=== PATIENT | male | born 1940 | race Caucasian/White ===

== ENCOUNTER 2020-03-12 10:06 | Observation (INO) ==
[2020-03-12] MEDS ORDERED: SODIUM CHLORIDE 0.9% 1000ML 1,000 ML IV ONE (10:48)
--- NOTE | 2020-03-12 10:52 | Emergency Department Note ---
History of Present Illness General Chief complaint: Shortness of Breath/Dyspnea Stated complaint: LOSS 14LBS IN 8 [id number] PAIN-SOB Time Seen by Provider: 03/12/20 10:21 Source: patient and family (Spouse who is at the bedside) Mode of arrival: ambulatory Limitations: no limitations History of Present Illness This patient comes in after feeling ill since March 02. He was seen by his primary doctor's office that he had a lump in his abdomen he followed up with the CAT scan done in the [place] [facility] as well as an ultrasound they are concerned he could have an abscess there he follow-up with the surgeon Dr. Ruiz who said there is no abscess. This does not bother the patient. He has been having weak and achiness and they did COVID test him on March 06 which which came back negative. They also the respiratory panel was negative. Since 04 March he has had a mild headache fevers and myalgias. He has had no fever today. His main complaint today is actually more shortness of breath he says he just does not feel right. He describes his headache is just more mild achiness he has no neck stiffness. He was been seen at [facility] ER and had labs and chest x-rays CAT scans and IV fluids for dehydration. Apparently he had a Lyme test that was negative as well.d His did bring a stack of old records which I reviewed. His most recent labs on 03-09-2020 shows white count was 8.74, BUN was 25 and creatinine is 1.38. LFTs were normal. Sed rate was mildly elevated at 22. Troponin was normal. He also had a CAT scan done of the abdomen pelvis on March 09 which showed no acute findings. There are small bilateral fat-containing inguinal hernias. He also apparently had a CTA of the chest which did not show any PEs. The report for this is not present but this is referenced on the ER note. Home Medications Home Medications Medication Instructions Recorded Confirmed Type amlodipine 5 mg PO QAM 03/12/20 03/12/20 History aspirin [Aspir-81] 81 mg PO QAM 03/12/20 03/12/20 History cholecalciferol (vitamin D3) 3,000 unit PO QAM 03/12/20 03/12/20 History [Vitamin D3] folic acid 0.8 mg PO QAM 03/12/20 03/12/20 History glipizide 5 mg PO QAM 03/12/20 03/12/20 History hydrochlorothiazide 12.5 mg PO QAM 03/12/20 03/12/20 History levothyroxine 100 mcg PO QAM 03/12/20 03/12/20 History losartan 25 mg PO QAM 03/12/20 03/12/20 History magnesium oxide 400 mg PO BID 03/12/20 03/12/20 History metformin 1,000 mg PO BID 03/12/20 03/12/20 History simvastatin 20 mg PO QAM 03/12/20 03/12/20 History sitagliptin [Januvia] 100 mg PO QAM 03/12/20 03/12/20 History Allergies Allergy/AdvReac Type Severity Reaction Status Date / Time adhesive AdvReac Unknown SORE RASH Verified 03/12/20 11:10 WITH TAPE Past Med/Surg History Medical History Prostate cancer Voiding dysfunction Family History Brother Prostate cancer Social History Preferred Language: Lithuanian marital status: Feels Safe at Home: Yes Smoking Status: Never smoker Hx Alcohol Use: Yes Review of Systems A total of 10 systems reviewed and were otherwise negative Denies dysuria or hematuria. No nausea vomiting diarrhea. Is diffusely weak b ut nonfocal. He has lost 14 pounds over the last 8 days Physical Exam Vital Signs Vital Signs - 24 hr 03/12/20 10:15 03/12/20 11:13 03/12/20 11:20 Temperature 36.5 C Temperature Source Oral Pulse Rate 82 82 Pulse Rate from SpO2 Sensor Pulse Rhythm Regular Respiratory Rate 18 18 Respiratory Effort / Characteristics Non-Labored Non-Labored Respiratory Depth Normal Normal Blood Pressure 146/82 H Blood Pressure Mean 103 Blood Pressure Position Sitting Pulse Oximetry 97 97 96 Oxygen Delivery Method Room Air Room Air Room Air Sepsis Recent Fever Within 48 Hours No Sepsis New/Unexplained Change in Mental Status No Sepsis Action Taken by Nursing No Action Required 03/12/20 11:23 03/12/20 11:30 03/12/20 11:45 Temperature Temperature Source Pulse Rate 86 83 95 H Pulse Rate from SpO2 Sensor 86 83 96 H Pulse Rhythm Respiratory Rate 26 H 12 32 H Respiratory Effort / Characteristics Respiratory Depth Blood Pressure 153/95 H 135/80 165/96 H Blood Pressure Mean 119 84 109 Blood Pressure Position Pulse Oximetry 96 96 96 Oxygen Delivery Method Sepsis Recent Fever Within 48 Hours Sepsis New/Unexplained Change in Mental Status Sepsis Action Taken by Nursing 03/12/20 12:15 03/12/20 12:30 03/12/20 12:45 Temperature Temperature Source Pulse Rate 93 H 86 85 Pulse Rate from SpO2 Sensor 85 Pulse Rhythm Respiratory Rate 12 22 20 Respiratory Effort / Characteristics Respiratory Depth Blood Pressure 178/93 H 148/85 H 149/84 H Blood Pressure Mean 131 106 96 Blood Pressure Position Pulse Oximetry 94 Oxygen Delivery Method Sepsis Recent Fever Within 48 Hours Sepsis New/Unexplained Change in Mental Status Sepsis Action Taken by Nursing 03/12/20 13:00 03/12/20 13:15 03/12/20 13:30 Temperature Temperature Source Pulse Rate 79 81 84 Pulse Rate from SpO2 Sensor 78 81 84 Pulse Rhythm Respiratory Rate 22 22 17 Respiratory Effort / Characteristics Respiratory Depth Blood Pressure 134/69 145/79 H 148/81 H Blood Pressure Mean 88 87 110 Blood Pressure Position Pulse Oximetry 93 93 93 Oxygen Delivery Method Room Air Room Air Sepsis Recent Fever Within 48 Hours Sepsis New/Unexplained Change in Mental Status Sepsis Action Taken by Nursing 03/12/20 13:45 03/12/20 14:00 03/12/20 14:15 Temperature Temperature Source Pulse Rate 84 83 86 Pulse Rate from SpO2 Sensor 84 84 87 Pulse Rhythm Respiratory Rate 22 13 25 H Respiratory Effort / Characteristics Respiratory Depth Blood Pressure 150/84 H 151/81 H 166/88 H Blood Pressure Mean 101 94 129 Blood Pressure Position Pulse Oximetry 93 95 95 Oxygen Delivery Method Room Air Room Air Sepsis Recent Fever Within 48 Hours Sepsis New/Unexplained Change in Mental Status Sepsis Action Taken by Nursing 03/12/20 14:30 Temperature Temperature Source Pulse Rate 86 Pulse Rate from SpO2 Sensor 86 Pulse Rhythm Respiratory Rate 26 H Respiratory Effort / Characteristics Respiratory Depth Blood Pressure 156/88 H Blood Pressure Mean 103 Blood Pressure Position Pulse Oximetry 94 Oxygen Delivery Method Sepsis Recent Fever Within 48 Hours Sepsis New/Unexplained Change in Mental Status Sepsis Action Taken by Nursing General: Well developed well nourished not ill-appearing nontoxic older male who appears younger than stated age and in no acute distress, breathing comfortably on room air. Normal speech HEENT: Normal cephalic atraumatic. Pupils are equal round and reactive to light. Extraocular movements are intact. Oropharynx is pink with moist mucous membranes. No swelling of the mouth lips or tongue. Neck: Supple with a midline trachea. No meningeal signs or stiffness, no JVD or bruits. No Stridor. Negative Kernig and Rozanski signs Chest: Clear to auscultation bilaterally. No wheezes or rhonchi. No increased work of breathing. Heart: Regular rate and rhythm without murmurs or gallops. Abdomen: Soft nontender, nondistended without rebound guarding or rigidity. Extremities: No cyanosis clubbing or edema. No calf tenderness or assymetry Spine/Back. Non tender to palpation. No CVA tenderness Skin: Good turgor without rashes. Neurologic exam: Cranial nerves two through 12 are intact. Motor and sensation are intact and symmetrical throughout. No tremor Course Administered Medications Discontinued Medications Sodium Chloride (Nss 1000ml) 1,000 mls @ 999 mls/hr IV .Q1H1M ONE Stop: 03/12/20 11:48 Last Infusion: 03/12/20 13:41 Dose: 0 mls/hr Documented by: [id number] Admin: 03/12/20 11:30 Dose: 999 mls/hr Documented by: [id number] Medical Decision Making Differential Diagnosis Dehydration, sepsis, COVID, electrolyte or metabolic abnormality, tickborne illness, central neurologic process, meningitis/encephalitis, cardiac disease, CHF, pneumonia Medical Records Attestation: I reviewed the patient's medical records. Home Medications Current Medication List: was personally reviewed by me Laboratory Data Attestation: I reviewed the patient's lab results. Result diagrams: 03/12/20 12:13 03/12/20 12:13 Lab Results 03/12/20 03/12/20 03/12/20 Range/Units 12:13 12:13 12:13 WBC 6.73 (4.8-10.8) K/uL RBC 4.91 (4.7-6.1) M/uL Hgb 14.9 (14.0-18.0) g/dL Hct 45.4 (42-52) % MCV 92.5 (80-100) fL MCH 30.3 (25-34) pg MCHC 32.8 (32-36) g/dL RDW Std Deviation 43.2 (36.4-46.3) fL RDW Coeff of Orly 12.8 (11.5-14.5) % Plt Count 234 (130-400) K/uL MPV 9.5 (7.4-10.4) fL Immature Gran % (Auto) 0.1 % Neut % (Auto) 59.1 % Lymph % (Auto) 26.9 % Webb % (Auto) 8.9 % Eos % (Auto) 4.3 % Baso % (Auto) 0.7 % Neut # (Auto) 3.97 (1.4-6.5) K/uL Lymph # (Auto) 1.81 (1.2-3.4) K/uL Webb # (Auto) 0.60 H (0.11-0.59) K/uL Eos # (Auto) 0.29 (0-0.5) K/uL Baso # (Auto) 0.05 (0-0.2) K/uL Immature Gran # (Auto) 0.01 (0.00-0.02) K/uL PT 10.7 (9.0-12.0) Seconds INR 1.0 (0.9-1.1) APTT 25.1 (21.0-31.0) Seconds PTT Ratio 0.9 Sodium 141 (136-145) mmol/L Potassium 3.9 (3.5-5.1) mmol/L Chloride 101 (98-107) mmol/L Carbon Dioxide 30 (21-32) mmol/L Anion Gap 10.0 (3-11) BUN 30 H (7-18) mg/dl Creatinine 1.28 (0.6-1.4) mg/dl Est Cr Clr Drug Dosing 46.8 ml/min Est GFR ( Amer) 61.3 Est GFR (Non-Af Amer) 52.9 BUN/Creatinine Ratio 23.4 H (10-20) Glucose 165 H (70-99) mg/dl Lactate (0.4-2.0) mmol/L Calcium 9.6 (8.5-10.1) mg/dl Magnesium 2.3 (1.8-2.4) mg/dl Total Bilirubin 0.5 (0.2-1) mg/dl AST 20 (15-37) U/L ALT 45 (12-78) U/L Alkaline Phosphatase 70 (45-117) U/L Troponin I < 0.015 (0-0.045) ng/ml Total Protein 7.7 (6.4-8.2) gm/dl Albumin 3.8 (3.4-5.0) gm/dl Globulin 3.9 (2.5-4.0) gm/dl Albumin/Globulin Ratio 1.0 (0.9-2) Procalcitonin (0-0.5) ng/ml Anaplasma Smear See Comment Lyme Disease IgG Ab (Negative) Lyme Disease IgM Ab (Negative) 03/12/20 03/12/20 Range/Units 12:13 12:14 WBC (4.8-10.8) K/uL RBC (4.7-6.1) M/uL Hgb (14.0-18.0) g/dL Hct (42-52) % MCV (80-100) fL MCH (25-34) pg MCHC (32-36) g/dL RDW Std Deviation (36.4-46.3) fL RDW Coeff of Orly (11.5-14.5) % Plt Count (130-400) K/uL MPV (7.4-10.4) fL Immature Gran % (Auto) % Neut % (Auto) % Lymph % (Auto) % Webb % (Auto) % Eos % (Auto) % Baso % (Auto) % Neut # (Auto) (1.4-6.5) K/uL Lymph # (Auto) (1.2-3.4) K/uL Webb # (Auto) (0.11-0.59) K/uL Eos # (Auto) (0-0.5) K/uL Baso # (Auto) (0-0.2) K/uL Immature Gran # (Auto) (0.00-0.02) K/uL PT (9.0-12.0) Seconds INR (0.9-1.1) APTT (21.0-31.0) Seconds PTT Ratio Sodium (136-145) mmol/L Potassium (3.5-5.1) mmol/L Chloride (98-107) mmol/L Carbon Dioxide (21-32) mmol/L Anion Gap (3-11) BUN (7-18) mg/dl Creatinine (0.6-1.4) mg/dl Est Cr Clr Drug Dosing ml/min Est GFR ( Amer) Est GFR (Non-Af Amer) BUN/Creatinine Ratio (10-20) Glucose (70-99) mg/dl Lactate 1.6 (0.4-2.0) mmol/L Calcium (8.5-10.1) mg/dl Magnesium (1.8-2.4) mg/dl Total Bilirubin (0.2-1) mg/dl AST (15-37) U/L ALT (12-78) U/L Alkaline Phosphatase (45-117) U/L Troponin I (0-0.045) ng/ml Total Protein (6.4-8.2) gm/dl Albumin (3.4-5.0) gm/dl Globulin (2.5-4.0) gm/dl Albumin/Globulin Ratio (0.9-2) Procalcitonin < 0.05 (0-0.5) ng/ml Anaplasma Smear Lyme Disease IgG Ab Negative (Negative) Lyme Disease IgM Ab Negative (Negative) Imaging Data Attestation: I personally reviewed and interpreted this imaging study as follows: Radiologist's Impression: XR chest 1V portable CLINICAL HISTORY: SEPSIS COMPARISON STUDY: January 2013 FINDINGS: The heart is at the upper limits of normal in size. There is elevation of the right hemidiaphragm. There is no failure. There is no focal pulmonary consolidation. There are no pleural effusions.[ IMPRESSION: Mild elevation of the right hemidiaphragm. No active disease in the chest. ECG Data Attestation: I personally reviewed and interpreted this ECG as follows: Indication: + SOB/dyspnea Rate (beats per minute): 82 Rhythm: + normal sinus ECG Intervals/blocks: + Normal QRS and + Normal QT; no Normal IN (ER is mildly prolonged at 220) ECG [place]: + Normal ECG ST segments: + Normal ST segments ECG Findings: + Q waves (Inferior); no PACs and no PVCs Comparison ECG Date: from (2013, the most recent EKG in the computer) Change: no significant change MDM Narrative This patient comes in as described above he has not felt well for about 2 weeks now he is had extensive work-up and did bring the labs which I reviewed. I did a full sepsis work-up and he was hydrated 1 L normal saline bolus also did a cardiac work-up. He is had mild headaches although looks well and has no meningeal signs or stiffness he has normal neurologic exam and mental status .I do not think is meningitis or encephalitis I did do a CAT scan of his head as they have not imaged his head yet he does have a history of prostate cancer. He was reassessed frequently. He has no white count or fever to suggest infection. Additionally, his lactic acid is normal which would also go against sepsis. Chest x-ray does not suggest congestive heart failure pneumonia or pneumothorax. EKG does not suggest acute coronary syndrome or arrhythmia. Additionally troponin is negative. CAT scan of the head was unremarkable. He has nothing suggest liver gallbladder or pancreas disease. He has no meningeal signs or anything to suggest meningitis or encephalitis and has a normal neurologic exam. His initial tickborne illness studies are negative although the anaplasmosis PCR is pending. Although he had a COVID test it is possible this was falsely negative. He was retested here and isolated. This may be more of a viral illness as well. With this being his third visit and having continued weakness and shortness of breath and weight loss, I do think he should be admitted/observed, consulted Dr. Kirby to see him in the ER. Continuous cardiac monitoring: An order was placed for continuous cardiac monitoring. The patient was noted to be in normal sinus rhythm with a rate of 90. Impression & Plan SOB (shortness of breath), Weakness, Recent weight loss, Myalgia Discharge Plan Visit Data Chief Complaint: Shortness of Breath/Dyspnea Stated Complaint: LOSS 14LBS IN 8 [id number] PAIN-SOB ED Provider: Telly Rollins Discharge Problem: SOB (shortness of breath), Weakness, Recent weight loss, Myalgia Forms Stand Alone Forms: [facility] Prescriptions Prescriptions: No Action glipizide 5 mg tablet extended release 24hr 5 mg PO QAM RF: 0 amlodipine 5 mg tablet 5 mg PO QAM RF: 0 aspirin [Aspir-81] 81 mg Tablet,Delayed Release (Dr/Ec) 81 mg PO QAM RF: 0 levothyroxine 100 mcg tablet 100 mcg PO QAM RF: 0 simvastatin 20 mg tablet 20 mg PO QAM RF: 0 metformin 1,000 mg tablet 1,000 mg PO BID RF: 0 losartan 25 mg tablet 25 mg PO QAM RF: 0 hydrochlorothiazide 12.5 mg capsule 12.5 mg PO QAM RF: 0 folic acid 800 mcg Tablet 0.8 mg PO QAM RF: 0 cholecalciferol (vitamin D3) [Vitamin D3] 25 mcg (1,000 unit) Tablet 3,000 unit PO QAM RF: 0 Januvia 100 mg tablet 100 mg PO QAM RF: 0 magnesium oxide 400 mg magnesium Tablet 400 mg PO BID RF: 0
--- NOTE | 2020-03-12 11:05 | XRay Report ---
XR chest 1V portable CLINICAL HISTORY: SEPSIS COMPARISON STUDY: January 2013 FINDINGS: The heart is at the upper limits of normal in size. There is elevation of the right hemidia phragm. There is no failure. There is no focal pulmonary consolidation. There are no pleural effusion s.[ IMPRESSION: Mild elevation of the right hemidiaphragm. No active disease in the chest. ACT 112: Negative or not required by law. Electronically signed by: Lalo Clark M.D. 03/12/2020 11:03 AM
--- NOTE | 2020-03-12 12:10 | CT Scan Report ---
CT head/brain wo con CLINICAL HISTORY: headache COMPARISON STUDY: No previous studies for comparison. TECHNIQUE: Axial CT of the brain is performed from the vertex to the skull base. IV contrast was not administered for this examination. A dose lowering technique was utilized adhering to the principles of ALARA. CT DOSE: 537.48 mGy.cm FINDINGS: No intra or extra-axial mass lesions are visualized. There is no CT evidence of acute cortical infarc tion. There is no evidence of midline shift. There is no acute hemorrhage. No calvarial fractures ar e visualized. There are patchy white matter hypodensities likely on a small vessel basis. There is no evidence of pathologic ventricular dilatation. There are bilateral maxillary sinus retention cyst. IMPRESSION: No acute intracranial findings ACT 112: Negative or not required by law. Electronically signed by: Lalo Clark M.D. 03/12/2020 12:09 PM
[2020-03-12 12:25] LABS: Basophils # (auto) 0.05 K/uL (0-0.2); Basophils % (auto) 0.7 %; Eosinophils # (auto) 0.29 K/uL (0-0.5); Eosinophils % (auto) 4.3 %; Hematocrit (blood only) 45.4 % (42-52); Hemoglobin 14.9 g/dL (14.0-18.0); Immature Granulocytes # (auto) 0.01 K/uL (0.00-0.02); Immature Granulocytes % (auto) 0.1 %; Lymphocytes # (auto) 1.81 K/uL (1.2-3.4); Lymphocytes % (auto) 26.9 %; Mean Corpuscular Hemoglobin 30.3 pg (25-34); Mean Corpuscular Hgb Conc 32.8 g/dL (32-36); Mean Corpuscular Volume 92.5 fL (80-100); Mean Platelet Volume 9.5 fL (7.4-10.4); Monocytes % (auto) 8.9 %; Neutrophils # (auto) 3.97 K/uL (1.4-6.5); Neutrophils % (auto) 59.1 %; Platelet Count 234 K/uL (130-400); RDW Coefficient of Variation 12.8 % (11.5-14.5); RDW Standard Deviation 43.2 fL (36.4-46.3); Red Blood Count 4.91 M/uL (4.7-6.1); White Blood Count 6.73 K/uL (4.8-10.8)
[2020-03-12 12:35] LABS: Partial Thromboplastin Ratio 0.9; Partial Thromboplastin Time 25.1 Seconds (21.0-31.0); Prothrombin Time 10.7 Seconds (9.0-12.0)
[2020-03-12 12:42] LABS: Alanine Aminotransferase 45 U/L (12-78); Albumin Level 3.8 gm/dl (3.4-5.0); Aspartate Aminotransferase 20 U/L (15-37); BUN Creatinine Ratio 23.4 (10-20); Blood Urea Nitrogen 30 mg/dl (7-18); Calcium 9.6 mg/dl (8.5-10.1); Carbon Dioxide 30 mmol/L (21-32); Chloride 101 mmol/L (98-107); Creatinine Clr Calc Pharmacy 46.8 ml/min; Est GFR (African American) 61.3; Est GFR (Non-African American) 52.9; Glucose 165 mg/dl (70-99); Magnesium 2.3 mg/dl (1.8-2.4); Potassium 3.9 mmol/L (3.5-5.1); Sodium 141 mmol/L (136-145)
[2020-03-12 12:47] LABS: Alkaline Phosphatase 70 U/L (45-117); Bilirubin,Total 0.5 mg/dl (0.2-1); Globulin 3.9 gm/dl (2.5-4.0); Total Protein 7.7 gm/dl (6.4-8.2); Troponin I < 0.015 ng/ml (0-0.045)
[2020-03-12 13:06] LABS: Procalcitonin < 0.05 ng/ml (0-0.5)
[2020-03-12 13:17] LABS: Lyme Ab IgG w/WB Rflx Negative (Negative); Lyme Ab IgM w/WB Rflx Negative (Negative)
[2020-03-12] MEDS ORDERED: NON-FORMULARY MEDICATION (Folic Acid 0.8 MG) PO SCH (14:45)
[2020-03-12] MEDS ORDERED: LEVOTHYROXINE SODIUM 100 MCG TABLET PO SCH (14:45)
[2020-03-12] MEDS ORDERED: NON-FORMULARY MEDICATION (Magnesium Oxide 400 MG) PO SCH (14:45)
[2020-03-12] MEDS ORDERED: CHOLECALCIFEROL 3000 UNIT PO SCH (14:45)
--- NOTE | 2020-03-12 15:09 | History & Physical Report ---
Date of Service March 12, 2020 Assessment & Plan (1) Dyspnea: Very mild, not hypoxic. Pulse ox 93-96% at rest on room air presently Chest x-ray clear. No other respiratory symptoms except very mild dry cough occasionally Awaiting repeat COVID test but COVID test was negative on 03/06 as well as a [employer] viral respiratory panel PCR test which was also negative on 03/06. Troponin here is negative and symptoms ongoing for some time. -Admit for observation for worsening of dyspnea or development of hypoxia -No need for further imaging of the chest at this time or echocardiogram as he has no signs of heart failure clinically -Repeat COVID-19 test here -Supplemental O2 as needed to keep pulse ox greater than 92% -Could be associated with tickborne illness such as anaplasmosis to have bronchitis or dyspnea-see below (2) Fever: With 6 days of fevers starting 03/04 and resolved on 03/10 along with intermittent mild headache and myalgias and arthralgias He works in the [employer] frequently and has a history of multiple tick bites in the past Had a negative Lyme titer at an outside hospital within the last week and again here. Anaplasmosis smear here does not show inclusion bodies consistent with anaplasmosis, however it could be too late in the course of illness to see these inclusion bodies at this point. And Anaplasma DNA PCR has been sent off, but again could be falsely negative. He does have an elevation of monocytes and a CBC which is consistent more with a viral illness, but could be with anaplasmosis as well. He does not have any thrombocytopenia or elevated LFTs. WBC count is normal. COVID test negative on 03/06 as above and repeating here today -Will empirically treat with doxycycline 100 mg IV every 12 hours along with IV fluid hydration and see if patient has improvement in his overall malaise and headache -Follow blood cultures which were drawn in the ER -Monitor for fevers -Tylenol as needed -Supportive care -Follow-up results of UA which has not been collected yet in the ER although he is not having any signs or symptoms of UTI (3) Headache: As above, treating empirically for tickborne illness. May also have been from fever which could be from a viral infection. Nonetheless, headache is pretty much resolved at this point and he does not have any altered mental state-I do not believe he needs a lumbar puncture at this time (4) Diabetes mellitus: With hyperglycemia here secondary to stress and acute infection and did not take his medications this morning -Sliding scale insulin with NovoLog as needed -Continue home Januvia but hold glipizide and metformin Check hemoglobin A1c in the morning (5) HTN (hypertension), benign: Blood pressures mildly elevated here as he did not take his medications this morning prior to coming to the ER -Give amlodipine, losartan first dose now, but hold HCTZ while giving IV fluids Monitor BPs (6) Prostate cancer: With a history of prostatectomy Follows with urology as an outpatient No acute issues at this time -Checking UA with urine culture as indicated as above (7) Vitamin D deficiency: Continue home vitamin D supplementation -Continue home folic acid as well (8) DVT prophylaxis: SQ Lovenox, SCDs Disposition-bring in for observation overnight for generalized malaise, mild dyspnea, and empiric treatment for tickborne illness as above along with IV fluid hydration Full code, but patient reports he would not want continued life support if he was in a state with a very poor prognosis for recovery. His longtime partner, Mariposa, who lives with him at 23 years is his HCPOA and she has paperwork stating such. History of Present Illness Chief Complaint: Shortness of breath, fever Primary Care Provider: Ming Gramajo This patient is a 79-year-old male with a history of DM 2, HTN, remote PMR, hyperlipidemia, and prostate cancer status post prostatectomy, who presents to the ER with 8 days of not feeling well. He started to complain of a headache intermittently and a fever on 03/04 that was never lower than 101.5 with being given antipyretics by his . He had myalgias and arthralgias initially as well and very low appetite. He denies any nausea/vomiting or diarrhea. He has lost 12 pounds in the last 8 days and has been very lethargic and laying in bed. His reports for the first 2 days with the fevers, he was slightly confused at times but that has since resolved. He denied any urological symptoms, no shortness of breath or cough or chest pain at that time. He is frequently working out in the [employer] and has pulled multiple ticks off of him over the years, but none recently that he can recall. He has not traveled outside of his local area and has been practicing very good social distancing and mostly staying at home. They did have family recently come to visit but no one who is actively sick and his is not actively sick as well. No known COVID contacts. He had a COVID test done in the parking lot of his PCPs office on 03/06. But when the fevers continued, he presented to the [place] ER for further testing on 03/08. There, he had imaging of the chest, abdomen/pelvis due to feeling a small lump which turned out to be a lipoma in the left lower quadrant (there had been question of whether he had an intra-abdominal abscess), and blood work and a urinalysis. He had COVID testing which had come back negative at that point. His blood work did show elevation in absolute monocytes as well as evidence of d ehydration with a mildly low sodium of 132 and creatinine slightly up at 1.4 as well as a high specific gravity of his urinalysis, but no evidence of infection on the urinalysis. He also had a negative Lyme disease test. The next day, he was seen by general surgeon as an outpatient for the lump in his abdomen and was told it was definitely a lipoma and was nothing to worry about and was certainly not causing his fevers. He then returned to the [facility] ER on 03/09 due to ongoing symptoms and again had a fairly unremarkable work-up and was sent home. His fevers resolved by 03/10 and his headache is improved. Today, he started to have a slight feeling of inability to take a deep breath, but no chest pain. He is no longer having a headache or fever, but because of the uneasy feeling and dyspnea, he came to [facility] ER for further evaluation. Here, his CBC was unremarkable except for mild elevation in absolute monocytes, his CMP was negative, and anaplasmosis smear was negative, a Lyme disease titer was negative, pro calcitonin was negative, troponin was negative, chest x-ray showed mild elevation right hemidiaphragm but otherwise clear, and a CT of the head was negative for acute disease. Urinalysis was not yet completed at the time of admission A repeat COVID test was sent off and pending at the time of admission. ECG showed first-degree AV block and evidence of a inferior infarct. His vital signs were all within normal limits except for mildly elevated blood pressure as he did not take his antihypertensives today. He will be admitted for observation with empiric treatment of IV doxycycline in case of tickborne infection, IV fluid hydration, and monitoring of blood cultures for growth for 24 hours. Allergies Allergy/AdvReac Type Severity Reaction Status Date / Time adhesive AdvReac Unknown SORE RASH Verified 03/12/20 11:10 WITH TAPE Home Medications Home Medications Medication Instructions Recorded Confirmed Type amlodipine 5 mg PO QAM 03/12/20 03/12/20 History aspirin [Aspir-81] 81 mg PO QAM 03/12/20 03/12/20 History cholecalciferol (vitamin D3) 3,000 unit PO QAM 03/12/20 03/12/20 History [Vitamin D3] folic acid 0.8 mg PO QAM 03/12/20 03/12/20 History glipizide 5 mg PO QAM 03/12/20 03/12/20 History hydrochlorothiazide 12.5 mg PO QAM 03/12/20 03/12/20 History levothyroxine 100 mcg PO QAM 03/12/20 03/12/20 History losartan 25 mg PO QAM 03/12/20 03/12/20 History magnesium oxide 400 mg PO BID 03/12/20 03/12/20 History metformin 1,000 mg PO BID 03/12/20 03/12/20 History simvastatin 20 mg PO QAM 03/12/20 03/12/20 History sitagliptin [Januvia] 100 mg PO QAM 03/12/20 03/12/20 History Past Med/Surg History Medical History Diabetes mellitus History of renal calculi HTN (hypertension), benign Prostate cancer Vitamin D deficiency Voiding dysfunction Surgical History History of prostatectomy History of total knee arthroplasty Bilateral Family History Brother Prostate cancer Social History Preferred Language: [place] marital status: Current Living Situation: Significant Other current occupational status: retired Feels Safe at Home: Yes Smoking Status: Never smoker Hx Alcohol Use: Yes Review of Systems Review of Systems: All systems reviewed & are unremarkable except as noted in HPI & below No sore throat or runny nose, no neck pain He did have mild intermittent headaches and photophobia which are now resolved Denies chest pain or cough that is productive. He has a very occasional slight dry cough. Dyspnea as per HPI Fevers have resolved for the last 2 days Denies nausea or vomiting but has very low appetite and has lost 12 pounds No diarrhea or constipation. Last bowel movement was this morning and was normal. No further myalgias or arthralgias-these have resolved No rashes that he knows of No dysuria or urinary frequency urgency Physical Exam Constitutional: WD/WN, vitals as above Eyes: PERRL, conjunctivae normal, anicteric sclerae ENMT: external ear and nose normal, oropharynx normal Neck: trachea midline, no thyromegaly normal visual inspection; no anterior neck swelling and no nuchal rigidity Thyroid: no thyromegaly, no thyroid mass, no thyroid nodules and thyroid nontender Respiratory: normal respiratory effort, lungs clear to auscultation Cardiovascular: RRR, no murmur, no edema Vessels: dorsalis pedis pulses present Extremities: no calf tenderness (Negative Homans sign bilaterally) and no edema Chest (Breasts): Chest: normal inspection of chest Gastrointestinal (Abdomen): normal bowel sounds, soft, nontender, no hepatosplenomegaly (Very small lump palpated superficially in the left lower quadrant that was nontender) Musculoskeletal: Extremities: extremities normal to inspection; no cyanosis and no clubbing Skin: no rashes, warm and dry Neurologic: moves all extremities and awake; no focal motor deficits Psychiatric: A+Ox3, euthymic affect Lymphatic: no lymphedema Results & Data Results & Data ([facility]) Vital Signs (Past 12 Hours) Vital Signs Temp Pulse Resp BP Pulse Ox 03/12/20 14:30 86 26 H 156/88 H 94 03/12/20 14:15 86 25 H 166/88 H 95 03/12/20 14:00 83 13 151/81 H 95 03/12/20 13:45 84 22 150/84 H 93 03/12/20 13:30 84 17 148/81 H 93 03/12/20 13:15 81 22 145/79 H 93 03/12/20 13:00 79 22 134/69 93 07/12/20 12:45 85 20 149/84 H 94 03/12/20 12:30 86 22 148/85 H 03/12/20 12:15 93 H 12 178/93 H 03/12/20 11:45 95 H 32 H 165/96 H 96 03/12/20 11:30 83 12 135/80 96 03/12/20 11:23 86 26 H 153/95 H 96 03/12/20 11:20 96 03/12/20 11:13 82 18 97 03/12/20 10:15 36.5 C 82 18 146/82 H 97 Laboratory Results 03/12/20 03/12/20 03/12/20 Range/Units 14:00 12:14 12:13 WBC (4.8-10.8) K/uL RBC (4.7-6.1) M/uL Hgb (14.0-18.0) g/dL Hct (42-52) % MCV (80-100) fL MCH (25-34) pg MCHC (32-36) g/dL RDW Std Deviation (36.4-46.3) fL RDW Coeff of Orly (11.5-14.5) % Plt Count (130-400) K/uL MPV (7.4-10.4) fL Immature Gran % (Auto) % Neut % (Auto) % Lymph % (Auto) % [place] % (Auto) % Eos % (Auto) % Baso % (Auto) % Neut # (Auto) (1.4-6.5) K/uL Lymph # (Auto) (1.2-3.4) K/uL [place] # (Auto) (0.11-0.59) K/uL Eos # (Auto) (0-0.5) K/uL Baso # (Auto) (0-0.2) K/uL Immature Gran # (Auto) (0.00-0.02) K/uL PT (9.0-12.0) Seconds INR (0.9-1.1) APTT (21.0-31.0) Seconds PTT Ratio Sodium (136-145) mmol/L Potassium (3.5-5.1) mmol/L Chloride (98-107) mmol/L Carbon Dioxide (21-32) mmol/L Anion Gap (3-11) BUN (7-18) mg/dl Creatinine (0.6-1.4) mg/dl Est Cr Clr Drug Dosing ml/min Est GFR ( Amer) Est GFR (Non-Af Amer) BUN/Creatinine Ratio (10-20) Glucose (70-99) mg/dl Lactate 1.6 (0.4-2.0) mmol/L Calcium (8.5-10.1) mg/dl Magnesium (1.8-2.4) mg/dl Total Bilirubin (0.2-1) mg/dl AST (15-37) U/L ALT (12-78) U/L Alkaline Phosphatase (45-117) U/L Troponin I (0-0.045) ng/ml Total Protein (6.4-8.2) gm/dl Albumin (3.4-5.0) gm/dl Globulin (2.5-4.0) gm/dl Albumin/Globulin Ratio (0.9-2) Procalcitonin < 0.05 (0-0.5) ng/ml Anaplasma Smear A. phagocytophilum DNA Lyme Disease IgG Ab Negative (Negative) Lyme Disease IgM Ab Negative (Negative) SARS-CoV-2 RNA (RT-PCR) Pending 03/12/20 03/12/20 03/12/20 Range/Units 12:13 12:13 12:13 WBC 6.73 (4.8-10.8) K/uL RBC 4.91 (4.7-6.1) M/uL Hgb 14.9 (14.0-18.0) g/dL Hct 45.4 (42-52) % MCV 92.5 (80-100) fL MCH 30.3 (25-34) pg MCHC 32.8 (32-36) g/dL RDW Std Deviation 43.2 (36.4-46.3) fL RDW Coeff of Orly 12.8 (11.5-14.5) % Plt Count 234 (130-400) K/uL MPV 9.5 (7.4-10.4) fL Immature Gran % (Auto) 0.1 % Neut % (Auto) 59.1 % Lymph % (Auto) 26.9 % [place] % (Auto) 8.9 % Eos % (Auto) 4.3 % Baso % (Auto) 0.7 % Neut # (Auto) 3.97 (1.4-6.5) K/uL Lymph # (Auto) 1.81 (1.2-3.4) K/uL [place] # (Auto) 0.60 H (0.11-0.59) K/uL Eos # (Auto) 0.29 (0-0.5) K/uL Baso # (Auto) 0.05 (0-0.2) K/uL Immature Gran # (Auto) 0.01 (0.00-0.02) K/uL PT 10.7 (9.0-12.0) Seconds INR 1.0 (0.9-1.1) APTT 25.1 (21.0-31.0) Seconds PTT Ratio 0.9 Sodium 141 (136-145) mmol/L Potassium 3.9 (3.5-5.1) mmol/L Chloride 101 (98-107) mmol/L Carbon Dioxide 30 (21-32) mmol/L Anion Gap 10.0 (3-11) BUN 30 H (7-18) mg/dl Creatinine 1.28 (0.6-1.4) mg/dl Est Cr Clr Drug Dosing 46.8 ml/min Est GFR ( Amer) 61.3 Est GFR (Non-Af Amer) 52.9 BUN/Creatinine Ratio 23.4 H (10-20) Glucose 165 H (70-99) mg/dl Lactate (0.4-2.0) mmol/L Calcium 9.6 (8.5-10.1) mg/dl Magnesium 2.3 (1.8-2.4) mg/dl Total Bilirubin 0.5 (0.2-1) mg/dl AST 20 (15-37) U/L ALT 45 (12-78) U/L Alkaline Phosphatase 70 (45-117) U/L Troponin I < 0.015 (0-0.045) ng/ml Total Protein 7.7 (6.4-8.2) gm/dl Albumin 3.8 (3.4-5.0) gm/dl Globulin 3.9 (2.5-4.0) gm/dl Albumin/Globulin Ratio 1.0 (0.9-2) Procalcitonin (0-0.5) ng/ml Anaplasma Smear See Comment A. phagocytophilum DNA Lyme Disease IgG Ab (Negative) Lyme Disease IgM Ab (Negative) SARS-CoV-2 RNA (RT-PCR) 03/12/20 Range/Units 12:12 WBC (4.8-10.8) K/uL RBC (4.7-6.1) M/uL Hgb (14.0-18.0) g/dL Hct (42-52) % MCV (80-100) fL MCH (25-34) pg MCHC (32-36) g/dL RDW Std Deviation (36.4-46.3) fL RDW Coeff of Orly (11.5-14.5) % Plt Count (130-400) K/uL MPV (7.4-10.4) fL Immature Gran % (Auto) % Neut % (Auto) % Lymph % (Auto) % [place] % (Auto) % Eos % (Auto) % Baso % (Auto) % Neut # (Auto) (1.4-6.5) K/uL Lymph # (Auto) (1.2-3.4) K/uL [place] # (Auto) (0.11-0.59) K/uL Eos # (Auto) (0-0.5) K/uL Baso # (Auto) (0-0.2) K/uL Immature Gran # (Auto) (0.00-0.02) K/uL PT (9.0-12.0) Seconds INR (0.9-1.1) APTT (21.0-31.0) Seconds PTT Ratio Sodium (136-145) mmol/L Potassium (3.5-5.1) mmol/L Chloride (98-107) mmol/L Carbon Dioxide (21-32) mmol/L Anion Gap (3-11) BUN (7-18) mg/dl Creatinine (0.6-1.4) mg/dl Est Cr Clr Drug Dosing ml/min Est GFR ( Amer) Est GFR (Non-Af Amer) BUN/Creatinine Ratio (10-20) Glucose (70-99) mg/dl Lactate (0.4-2.0) mmol/L Calcium (8.5-10.1) mg/dl Magnesium (1.8-2.4) mg/dl Total Bilirubin (0.2-1) mg/dl AST (15-37) U/L ALT (12-78) U/L Alkaline Phosphatase (45-117) U/L Troponin I (0-0.045) ng/ml Total Protein (6.4-8.2) gm/dl Albumin (3.4-5.0) gm/dl Globulin (2.5-4.0) gm/dl Albumin/Globulin Ratio (0.9-2) Procalcitonin (0-0.5) ng/ml Anaplasma Smear A. phagocytophilum DNA Pending Lyme Disease IgG Ab (Negative) Lyme Disease IgM Ab (Negative) SARS-CoV-2 RNA (RT-PCR) Diagnostic Findings CT head noncontrast-no acute intracranial findings Chest x-ray image personally reviewed by me and agree with the following: Mild elevation of right hemidiaphragm. No active disease in the chest. ECG Additional Comments: Sinus rhythm with first-degree AV block, inferior infarct age undetermined, possible anterior infarct age undetermined-compared to previous 03/28/2013, borderline criteria for anterior infarct are now present, inferior infarct is now present Code Status & VTE Plan Code Status Full code VTE Prophylaxis Plan VTE Prophylaxis will be ordered: Yes PG Care Time/CCT Total # of Minutes Spent Total Time Spent with Patient: Total time spent is greater than 50% in coordination of care (as documented) at patient's floor/unit and/or counseling patient: Coding Level of Care Code 01555 OBS Care - Level 3 Diagnoses Dyspnea R06.00 Fever R50.9 Headache R51 Diabetes mellitus E11.9 HTN (hypertension), benign I10 Prostate cancer C61 Vitamin D deficiency E55.9 DVT prophylaxis Z29.9
[2020-03-12] MEDS: DOXYCYCLINE HYCLATE 100 MG in DEXTROSE 5% 100 ML IV SCH (15:15)
[2020-03-12 15:42] LABS: Appearance Urine Clear (Clear); Bilirubin Urine Negative (Negative); Blood Urine Negative (Negative); Color Urine Yellow; Glucose Urine UA Negative (Negative); Ketones Urine 1+ (Negative); Leukocyte Esterase Urine Negative (Negative); Nitrite Urine Negative (Negative); Protein Urine Negative (Negative); Specific Gravity Urine 1.025 (1.000-1.030); Urobilinogen Urine Negative (Negative)
[2020-03-12] MEDS ORDERED: GLUCOSE 10 TABS/TUBE PO PRN (17:30)
[2020-03-12] MEDS ORDERED: GLUCOSE 40% GEL 15 GM TUBE PO PRN (17:30)
[2020-03-12] MEDS ORDERED: ONDANSETRON INJ 2 MG/ML 2 ML VIAL IV PRN (17:30)
[2020-03-12] MEDS ORDERED: ACETAMINOPHEN 325 MG TAB PO PRN (17:30)
[2020-03-12] MEDS ORDERED: GLUCAGON FOR INJ 1 MG VIAL SQ PRN (17:30)
[2020-03-12] MEDS ORDERED: DEXTROSE 50% 50 ML SYRINGE IV PRN (17:30)
[2020-03-12] MEDS ORDERED: ALUMINUM/MAGNESIUM SUSP 30 ML UDC PO PRN (17:30)
[2020-03-12] MEDS ORDERED: CARBOHYDRATES FOR HYPOGLYCEMIA PO PRN (17:30)
[2020-03-12] MEDS: SODIUM CHLORIDE 0.9% 1000ML 1,000 ML IV SCH (17:38)
[2020-03-12] MEDS ORDERED: ENOXAPARIN INJ 40 MG/0.4 ML SYR SQ SCH (18:00)
[2020-03-12] MEDS: SITAGLIPTIN PHOSPHATE 100 MG TAB PO SCH (18:23)
[2020-03-12] MEDS: LOSARTAN POTASSIUM 25 MG TAB PO SCH (18:23)
[2020-03-12] MEDS: FOLIC ACID 400 MCG TAB PO SCH (18:24)
[2020-03-12] MEDS: INSULIN ASPART 100 UNITS/ML 3 ML PEN SC SCH ×2 (18:58→21:59)
[2020-03-12] MEDS: AMLODIPINE BESYLATE 5 MG TAB PO SCH (20:50)
[2020-03-12] MEDS: ASPIRIN 81 MG ECTAB PO SCH (20:50)
[2020-03-12] MEDS: MAGNESIUM OXIDE 400 MG TAB PO SCH (20:51)
[2020-03-12] MEDS ORDERED: SIMVASTATIN 20 MG TAB PO SCH (21:00)
[2020-03-13] MEDS: SODIUM CHLORIDE 0.9% 1000ML 1,000 ML IV SCH (02:42)
[2020-03-13] MEDS: DOXYCYCLINE HYCLATE 100 MG in DEXTROSE 5% 100 ML IV SCH (02:42)
[2020-03-13] MEDS ORDERED: LEVOTHYROXINE SODIUM 100 MCG TABLET PO SCH (06:30)
[2020-03-13 07:47] LABS: Basophils # (auto) 0.03 K/uL (0-0.2); Basophils % (auto) 0.5 %; Eosinophils # (auto) 0.35 K/uL (0-0.5); Hematocrit (blood only) 41.9 % (42-52); Hemoglobin 14.1 g/dL (14.0-18.0); Immature Granulocytes # (auto) 0.01 K/uL (0.00-0.02); Immature Granulocytes % (auto) 0.2 %; Lymphocytes # (auto) 1.49 K/uL (1.2-3.4); Lymphocytes % (auto) 25.4 %; Mean Corpuscular Hgb Conc 33.7 g/dL (32-36); Mean Corpuscular Volume 92.1 fL (80-100); Mean Platelet Volume 9.3 fL (7.4-10.4); Monocytes # (auto) 0.43 K/uL (0.11-0.59); Monocytes % (auto) 7.3 %; Neutrophils # (auto) 3.55 K/uL (1.4-6.5); Neutrophils % (auto) 60.6 %; Platelet Count 217 K/uL (130-400); RDW Coefficient of Variation 12.7 % (11.5-14.5); RDW Standard Deviation 42.7 fL (36.4-46.3); Red Blood Count 4.55 M/uL (4.7-6.1); White Blood Count 5.86 K/uL (4.8-10.8)
[2020-03-13 08:20] LABS: BUN Creatinine Ratio 15.9 (10-20); Creatinine Clr Calc Pharmacy 60.3 ml/min; Est GFR (African American) 81.6; Est GFR (Non-African American) 70.4; Potassium 3.8 mmol/L (3.5-5.1)
[2020-03-13 08:21] LABS: Albumin Level 3.3 gm/dl (3.4-5.0); Bilirubin,Total 0.6 mg/dl (0.2-1); Calcium 8.7 mg/dl (8.5-10.1); Globulin 3.3 gm/dl (2.5-4.0); Magnesium 1.8 mg/dl (1.8-2.4); Total Protein 6.6 gm/dl (6.4-8.2)
[2020-03-13] MEDS: MAGNESIUM OXIDE 400 MG TAB PO SCH (08:24)
[2020-03-13] MEDS: FOLIC ACID 400 MCG TAB PO SCH (08:24)
[2020-03-13] MEDS: INSULIN ASPART 100 UNITS/ML 3 ML PEN SC SCH ×2 (08:53→12:01)
[2020-03-13] MEDS ORDERED: CHOLECALCIFEROL 1,000 UNITS 25 MCG TAB PO SCH (09:00)
[2020-03-13] MEDS: LOSARTAN POTASSIUM 25 MG TAB PO SCH (10:05)
[2020-03-13] MEDS: ASPIRIN 81 MG ECTAB PO SCH (10:05)
[2020-03-13] MEDS: SITAGLIPTIN PHOSPHATE 100 MG TAB PO SCH (10:05)
[2020-03-13] MEDS: AMLODIPINE BESYLATE 5 MG TAB PO SCH (10:05)
[2020-03-13 10:19] LABS: Estimated Average Glucose 200 mg/dl; Hemoglobin A1C 8.6 % (4.5-5.6)
--- NOTE | 2020-03-13 13:18 | Discharge Summary ---
Date of Service March 13, 2020 Admission HPI Per Admitting Provider This patient is a 79-year-old male with a history of DM 2, HTN, remote PMR, hyperlipidemia, and prostate cancer status post prostatectomy, who presents to the ER with 8 days of not feeling well. He started to complain of a headache intermittently and a fever on 03/04 that was never lower than 101.5 with being given antipyretics by his . He had myalgias and arthralgias initially as well and very low appetite. He denies any nausea/vomiting or diarrhea. He has lost 12 pounds in the last 8 days and has been very lethargic and laying in bed. His reports for the first 2 days with the fevers, he was slightly confused at times but that has since resolved. He denied any urological symptoms, no shortness of breath or cough or chest pain at that time. He is frequently working out in the [employer] and has pulled multiple ticks off of him over the years, but none recently that he can recall. He has not traveled outside of his local area and has been practicing very good social distancing and mostly staying at home. They did have family recently come to visit but no one who is actively sick and his is not actively sick as well. No known COVID contacts. He had a COVID test done in the parking lot of his PCPs office on 03/06. But when the fevers continued, he presented to the [facility] for further testing on 03/08. There, he had imaging of the chest, abdomen/pelvis due to feeling a small lump which turned out to be a lipoma in the left lower quadrant (there had been question of whether he had an intra-abdominal abscess), and blood work and a urinalysis. He had COVID testing which had come back negative at that point. His blood work did show elevation in absolute monocytes as well as evidence of dehydration with a mildly low sodium of 132 and creatinine slightly up at 1.4 as well as a high specific gravity of his urinalysis, but no evidence of infection on the urinalysis. He also had a negative Lyme disease test. The next day, he was seen by general surgeon as an outpatient for the lump in his abdomen and was told it was definitely a lipoma and was nothing to worry about and was certainly not causing his fevers. He then returned to the [facility] on 03/09 due to ongoing symptoms and again had a fairly unremarkable work-up and was sent home. His fevers resolved by 03/10 and his headache is improved. Today, he started to have a slight feeling of inability to take a deep breath, but no chest pain. He is no longer having a headache or fever, but because of the uneasy feeling and dyspnea, he came to [facility] for further evaluation. Here, his CBC was unremarkable except for mild elevation in absolute monocytes, his CMP was negative, and anaplasmosis smear was negative, a Lyme disease titer was negative, pro calcitonin was negative, troponin was negative, chest x-ray showed mild elevation right hemidiaphragm but otherwise clear, and a CT of the head was negative for acute disease. Urinalysis was not yet completed at the time of admission A repeat COVID test was sent off and pending at the time of admission. ECG showed first-degree AV block and evidence of a inferior infarct. His vital signs were all within normal limits except for mildly elevated blood pressure as he did not take his antihypertensives today. He will be admitted for observation with empiric treatment of IV doxycycline in case of tickborne infection, IV fluid hydration, and monitoring of blood cultures for growth for 24 hours. Principal Diagnosis Dyspnea, febrile illness, suspected tickborne illness, suspected COVID-19 Discharge Exam Constitutional WD/WN, vitals as above Eyes + anicteric sclerae Neck trachea midline, no thyromegaly normal visual inspection; no anterior neck swelling Respiratory normal respiratory effort, lungs clear to auscultation Cardiovascular RRR, no murmur, no edema Extremities: no calf tenderness (Negative Homans sign bilaterally) and no edema Chest (Breasts) Chest: normal inspection of chest Gastrointestinal (Abdomen) normal bowel sounds, soft, nontender, no hepatosplenomegaly (Very small lump palpated superficially in the left lower quadrant that was nontender) Musculoskeletal Extremities: extremities normal to inspection; no cyanosis and no clubbing Skin no rashes, warm and dry Neurologic moves all extremities and awake; no focal motor deficits Psychiatric A+Ox3, euthymic affect Lymphatic no lymphedema Discharge Data Allergies Allergy/AdvReac Type Severity Reaction Status Date / Time adhesive AdvReac Unknown SORE RASH Verified 03/12/20 11:10 WITH TAPE Consultations 03/12/20 13:43 ED Decision to Admit Stat Ordered Studies 03/12/20 10:47 CT head/brain wo con Stat Chest x-ray Hospital Course (1) Dyspnea: Very mild, not hypoxic. Pulse ox 93-96% at rest on room air initially and improved to 94-97% on room air by the day of discharge Chest x-ray clear. No other respiratory symptoms except very mild dry cough occasionally His dyspnea was completely resolved after admission and treatment with doxycycline and IV fluids as below Awaiting repeat COVID test but COVID test was negative on 03/06 as well as a [place] viral respiratory panel PCR test which was also negative on 03/06. Troponin here is negative and symptoms ongoing for some time. -No need for further imaging of the chest at this time or echocardiogram as he has no signs of heart failure clinically -Repeat COVID-19 test here pending at the time of discharge will need to be followed up after discharge -Could be associated with tickborne illness such as anaplasmosis to have bronchitis or dyspnea-see below (2) Fever: With 6 days of fevers starting 03/04 and resolved on 03/10 along with intermittent mild headache and myalgias and arthralgias He works in the [employer] frequently and has a history of multiple tick bites in the past Had a negative Lyme titer at an outside hospital within the last week and again here. Anaplasmosis smear here does not show inclusion bodies consistent with anaplasmosis, however it could be too late in the course of illness to see these inclusion bodies at this point. And Anaplasma DNA PCR has been sent off, but again could be falsely negative. He does have an elevation of monocytes and a CBC which is consistent more with a viral illness, but could be with anaplasmosis as well. Urinalysis is negative for signs of infection but does show evidence of dehydration He does not have any thrombocytopenia or elevated LFTs. WBC count is normal. COVID test negative on 03/06 as above and was repeated here-pending at the time of discharge He had no fevers during his hospital stay and was feeling significantly improved after receiving empiric doxycycline and IV fluid hydration He is stable for discharge to home -Will empirically treat with doxycycline 100 mg p.o. twice daily x4-week course -Follow blood cultures which were drawn in the ER-no growth to date -Monitor for fevers at home and recommended continued quarantine at home until COVID-19 test is resulted -Tylenol as needed (3) Headache: As above, treating empirically for tickborne illness and now completely resolved. May also have been from fever which could be from a viral infection. (4) Diabetes mellitus: With hyperglycemia here secondary to stress and acute infection and did not take his medications on the day of admission -Sliding scale insulin with NovoLog as needed was provided -Continue home Januvia, glipizide and metformin upon discharge Hemoglobin A1c here was elevated at 8.6% -Follow-up with PCP for improved control of diabetes (5) HTN (hypertension), benign: Blood pressures mildly elevated here as he did not take his medications this morning prior to coming to the ER -Blood pressures were much improved after restarting home medications -Continue amlodipine, losartan and HCTZ upon discharge Monitor BPs (6) Prostate cancer: With a history of prostatectomy Follows with urology as an outpatient No acute issues at this time -Urinalysis negative for infection (7) Vitamin D deficiency: Continue home vitamin D supplementation -Continue home folic acid as well (8) DVT prophylaxis: SQ Lovenox, SCDs were provided Disposition-admitted for observation for generalized malaise, mild dyspnea, and empiric treatment for tickborne illness as above along with IV fluid hydration- he was significantly improved and was stable for discharge by the next day Follow-up closely with PCP Full code, but patient reports he would not want continued life support if he was in a state with a very poor prognosis for recovery. His longtime partner, Mariposa, who lives with him at 23 years is his HCPOA and she has paperwork stating such. Total Time Total Time Spent Total Time Spent (In Minutes): 35 minutes Total Time Includes: Examination of the Patient, Discharge Planning and Medication Reconciliation Discharge Plan Discharge Items Patient Disposition: Home - Self-Care Reason For Visit: DYSPNEA, FEVER Discharge Diagnosis: Dyspnea, fever, Suspected Tick-Borne illness, Suspected COVID-19 Condition on Discharge: Good Activity: Resume your previous activity Lifting: Gradually increase as tolerated Bathing: No limitations Exercise/Sports: Gradually increase as tolerated Non-emergency contact: Primary Care Provider Call non-emergency contact if: you have any medication questions, your symptoms worsen, you have a fever and your temperature is above 101 Follow-up/Referrals: Lena Collier, [Physician] - (If you would like to change PCPs to the [facility] in [place], please call Dr. Collier's office to schedule an appointment. ) Ming Gramajo [Primary Care Provider] - Diet: Regular Addtl Attending Provider Instructions: Please finish out your doxycycline for a suspected tick-borne illness. The final test for Anaplasmosis is not resulted at the time of discharge, but even if it comes back nbegative, you should finish out the course of doxycycline for Anaplasmosis and for Lyme disease as you got so much better after taking it in the hospital. Your COVID-19 test was still pending at the time of discharge. We will notify you with the result when it is available. Home Isolation COVID-19 Instructions The following information about Home Isolation is from the CDC Website: https://www.cdc.gov/coronavirus/2019-ncov/hcp/hxlmfoda-blodbhd-dkrwxi.html Stay home except to get medical care People who are mildly ill with COVID-19 are able to isolate at home during their illness. You should restrict activities outside your home, except for getting medical care. Do not go to work, school, or public areas. Avoid using public transportation, ride-sharing, or taxis. Separate yourself from other people and animals in your home People: As much as possible, you should stay in a specific room and away from other people in your home. Also, you should use a separate bathroom, if available. Animals: You should restrict contact with pets and other animals while you are sick with COVID-19, just like you would around other people. Although there have not been reports of pets or other animals becoming sick with COVID-19, it is still recommended that people sick with COVID-19 limit contact with animals until more information is known about the virus. When possible, have another member of your household care for your animals while you are sick. If you are sick with COVID-19, avoid contact with your pet, including petting, snuggling, being kissed or licked, and sharing food. If you must care for your pet or be around animals while you are sick, wash your hands before and after you interact with pets and wear a face mask. Call ahead before visiting your doctor If you have a medical appointment, call the healthcare provider and tell them that you have or may have COVID-19. This will help the healthcare providers office take steps to keep other people from getting infected or exposed. Wear a face mask You should wear a face mask when you are around other people (e.g., sharing a room or vehicle) or pets and before you enter a healthcare providers office. If you are not able to wear a face mask (for example, because it causes trouble breathing), then people who live with you should not stay in the same room with you, or they should wear a face mask if they enter your room. Cover your coughs and sneezes Cover your mouth and nose with a tissue when you cough or sneeze. Throw used tissues in a lined trash can. Immediately wash your hands with soap and water for at least 20 seconds or, if soap and water are not available, clean your hands with an alcohol-based hand yard switch operator that contains at least 60% alcohol. Clean your hands often Wash your hands often with soap and water for at least 20 seconds, especially after blowing your nose, coughing, or sneezing; going to the bathroom; and before eating or preparing food. If soap and water are not readily available, use an alcohol-based hand yard switch operator with at least 60% alcohol, covering all surfaces of your hands and rubbing them together until they feel dry. Soap and water are the best option if hands are visibly dirty. Avoid touching your eyes, nose, and mouth with unwashed hands. Avoid sharing personal household items You should not share dishes, drinking glasses, cups, eating utensils, towels, or bedding with other people or pets in your home. After using these items, they should be washed thoroughly with soap and water. Clean all high-touch surfaces everyday High touch surfaces include counters, tabletops, doorknobs, bathroom fixtures, toilets, phones, keyboards, tablets, and bedside tables. Also, clean any surfaces that may have blood, stool, or body fluids on them. Use a household cleaning spray or wipe, according to the label instructions. Labels contain instructions for safe and effective use of the cleaning product including precautions you should take when applying the product, such as wearing gloves and making sure you have good ventilation during use of the product. Monitor your symptoms Seek prompt medical attention if your illness is worsening (e.g., difficulty breathing).Beforeseeking care, call your healthcare provider and tell them that you have, or are being evaluated for, COVID-19. Put on a face mask before you enter the facility. These steps will help the healthcare providers office to keep other people in the office or waiting room from getting infected or exposed. Ask your healthcare provider to call the local or state health department. Persons who are placed under active monitoring or facilitated self- monitoring should follow instructions provided by their local health department or occupational health professionals, as appropriate. When working with your local health department check their available hours. If you have a medical emergency and need to call 911, notify the dispatch personnel that you have, or are being evaluated for COVID-19. If possible, put on a face mask before emergency medical services arrive. Discontinuing home isolation Patients with confirmed COVID-19 should remain under home isolation precautions until the risk of secondary transmission to others is thought to be low. The decision to discontinue home isolation precautions should be made on a [id number] basis, in consultation with healthcare providers and [facility] and [facility] health departments. Pending Studies at Discharge: Yes (COVID-19, Anaplasmosis PCR) Stand-Alone Forms: My [facility] Medications and DC Order Prescriptions: New doxycycline hyclate 100 mg tablet 100 mg PO BID 28 Days Qty: 56 RF: 0 Continued glipizide 5 mg tablet extended release 24hr 5 mg PO QAM RF: 0 amlodipine 5 mg tablet 5 mg PO QAM RF: 0 aspirin [Aspir-81] 81 mg Tablet,Delayed Release (Dr/Ec) 81 mg PO QAM RF: 0 levothyroxine 100 mcg tablet 100 mcg PO QAM RF: 0 simvastatin 20 mg tablet 20 mg PO QAM RF: 0 metformin 1,000 mg tablet 1,000 mg PO BID RF: 0 losartan 25 mg tablet 25 mg PO QAM RF: 0 hydrochlorothiazide 12.5 mg capsule 12.5 mg PO QAM RF: 0 folic acid 800 mcg Tablet 0.8 mg PO QAM RF: 0 cholecalciferol (vitamin D3) [Vitamin D3] 25 mcg (1,000 unit) Tablet 3,000 unit PO QAM RF: 0 Januvia 100 mg tablet 100 mg PO QAM RF: 0 magnesium oxide 400 mg magnesium Tablet 400 mg PO BID RF: 0 Discharge Orders: Discharge Order (Routine); Ordered 03/13/20 Ordered By: Jennifer Alejandro/Other Patient Handouts: COVID-19 Prevention, COVID-19 Home Care, Diabetes: Activity Tips, Managing Diabetes: The A1C Test, Diabetes Learn Serve Portion Size, Diabetes Carbs Fats Protein, Doxycycline tablets or capsules Admission Data Admit Date/Time: 03/12/20 14:45 Attending Provider: Jennifer Kirby Admit Provider: Jennifer Kirby Primary Care Provider: Ming Gramajo Other Providers: Jennifer Kirby Other Interventions: Discharge Summary Assessment (RN) Last Done: 03/13/20 13:37 DC Date/Time DO NOT enter until pt leaves facility: 03/13/20 16:05 Coding Level of Care Code 97451 OBS Care - Discharge Diagnoses Dyspnea R06.00 Fever R50.9 Headache R51 Diabetes mellitus E11.9 HTN (hypertension), benign I10 Prostate cancer C61 Vitamin D deficiency E55.9 DVT prophylaxis Z29.9
--- NOTE | 2020-03-13 14:12 | Electrocardiogram Report ---
Test Reason : Blood Pressure : / mmHG Vent. Rate : 082 BPM Atrial Rate : 082 BPM P-R Int : 226 ms QRS Dur : 084 ms QT Int : 358 ms P-R-T Axes : 060 -05 002 degrees QTc Int : 418 ms Sinus rhythm with 1st degree A-V block possible Inferior infarct , age undetermined Poor R wave progression, consider anterior MS vs. lead placement vs. LVH Abnormal ECG When compared with ECG of 28-MAR-2013 14:51, DE interval has increased Borderline criteria for Anterior infarct are now Present Confirmed by Sid Ramirez ([id number]) on 03/13/2020 2:11:50 PM Referred By: REFERRED SELF Confirmed By:Jose Ramirez
== END 2020-03-13 16:05 | disposition home or self-care (01) ==
LOC: 2S 10:06 → ED 10:06 → 2S 15:38

== ENCOUNTER 2021-10-09 15:05 | Inpatient (IN) ==
--- NOTE | 2021-10-09 17:40 | XRay Report ---
XR chest 1V portable CLINICAL HISTORY: Weakness TECHNIQUE: Single frontal radiograph of the chest was obtained. Comparison: Comparison is made to chest one view 03/12/2020 FINDINGS: No lines and tubes are seen. The cardiomediastinal silhouette is normal. Lungs are underinflated but clear. No evidence of pleural effusion or pneumothorax. IMPRESSION: No acute chest disease. ACT 112: Negative or not required by law. Electronically signed by: Renny Del Castillo M.D. 10/09/2021 5:39 PM
--- NOTE | 2021-10-09 17:41 | XRay Report ---
XR humerus LT 2V CLINICAL HISTORY: Left arm pain, fall TECHNIQUE: 2 radiographic views of the left humerus were obtained. Comparison: None available at the time of this dictation. FINDINGS: There is no evidence for fracture, subluxation or dislocation. There is normal anatomic alignment of the bones. The visualized portion of the shoulder and elbow joints are unremarkable. There is normal bone mineralization. The soft tissues are unremarkable. IMPRESSION: No acute osseous injury ACT 112: Negative or not required by law. Electronically signed by: Renny Del Castillo M.D. 10/09/2021 5:40 PM
[2021-10-09 17:47] LABS: Hematocrit (blood only) 44.7 % (42-52); Hemoglobin 15.2 g/dL (14.0-18.0); Mean Corpuscular Volume 94.1 fL (80-100); Mean Platelet Volume 10.1 fL (7.4-10.4); Platelet Count 240 K/uL (130-400); RDW Coefficient of Variation 13.2 % (11.5-14.5); RDW Standard Deviation 45.8 fL (36.4-46.3); Red Blood Count 4.75 M/uL (4.7-6.1); White Blood Count 23.73 K/uL (4.8-10.8)
[2021-10-09 17:58] LABS: INR 1.1 (0.9-1.1); Partial Thromboplastin Ratio 1.1; Partial Thromboplastin Time 27.8 Seconds (21.0-31.0); Prothrombin Time 10.9 Seconds (9.0-12.0)
[2021-10-09 18:12] LABS: Alanine Aminotransferase 64 U/L (7-52); Albumin Globulin Ratio 1.2 (0.9-2); Albumin Level 4.1 gm/dl (3.4-5.0); Alkaline Phosphatase 87 U/L (34-104); Anion Gap 13 (3-11); Aspartate Aminotransferase 42 U/L (13-39); BUN Creatinine Ratio 21.3 (10-20); Blood Urea Nitrogen 35 mg/dl (6-23); Carbon Dioxide 26 mmol/L (21-32); Chloride 95 mmol/L (98-107); Est GFR (African American) 45.1 ml/min; Est GFR (Non-African American) 38.9 ml/min; Globulin 3.3 gm/dl (2.5-4.0); Glucose 283 mg/dl (70-99(Fasting)); Magnesium 1.5 mg/dl (1.7-2.4); Potassium 4.3 mmol/L (3.5-5.1); Sodium 134 mmol/L (136-145); Total Protein 7.4 gm/dl (6.0-8.3)
[2021-10-09 18:17] LABS: Basophils # (auto) 0.04 K/uL (0-0.2); Basophils % (auto) 0.2 %; Immature Granulocytes # (auto) 0.12 K/uL (0.00-0.02); Immature Granulocytes % (auto) 0.5 %; Lymphocytes # (auto) 1.09 K/uL (1.2-3.4); Lymphocytes % (auto) 4.6 %; Monocytes # (auto) 1.76 K/uL (0.11-0.59); Monocytes % (auto) 7.4 %; Neutrophils # (auto) 20.72 K/uL (1.4-6.5); Neutrophils % (auto) 87.3 %
[2021-10-09] MEDS ORDERED: SODIUM CHLORIDE 0.9% 1000ML 1,000 ML IV ONE (18:59)
[2021-10-09] MEDS ORDERED: cefTRIAXone SODIUM 1,000 MG/50 ML BAG IV STA (19:00)
[2021-10-09] MEDS ORDERED: ACETAMINOPHEN 325 MG TAB PO STA (19:02)
--- NOTE | 2021-10-09 19:37 | Emergency Department Note ---
Impression & Plan Sepsis, Renal colic, Hydronephrosis, Leukocytosis, Acute UTI ED Provider Note NAME: SHAR CHERRY AGE: 80 SEX: M : 1940 ARRIVES VIA: Walk-In INFORMANT: Patient ED PROVIDER(S): Cristi Mahan DO CHIEF COMPLAINT: Left lower back pain HPI: Patient is an 80-year-old male who presents to the ER for left lower back pain. Patient was seen by the PCP earlier today and given urine was diagnosed with a UTI just about 2 hours ago when they called him and he was sitting in the waiting room. He has been having hematuria for the past month. He denies any headache or change in vision. No chest pain or shortness of breath. No belly pain, nausea, vomiting, or diarrhea. He denies any dysuria, urgency, or frequency. No other exacerbating or remitting factors. Denies any steroid use. ROS: See above HPI for pertinent positives & negatives. A total of 10 systems reviewed and were otherwise negative. PAST MEDICAL HISTORY:See Below PAST SURGICAL HISTORY:See Below FAMILY HISTORY:See Below SOCIAL HISTORY:See Below HOME MEDICATIONS:See Below ALLERGIES:See Below VITALS:See Below PHYSICAL EXAMINATION: GENERAL: Sitting up in bed, alert, well appearing, well nourished, no distress, non-toxic EYE EXAM: normal conjunctiva. OROPHARYNX: no exudate, no erythema, lips, buccal mucosa, and tongue normal and mucous membranes are moist NECK: supple, no nuchal rigidity, no adenopathy, non-tender LUNGS: Clear to auscultation. Normal chest wall mechanics HEART: no murmurs, S1 normal and S2 normal ABDOMEN: abdomen soft, non-tender, normo-active bowel sounds, no masses, no rebound or guarding. BACK: Back is symmetrical on inspection and there is no deformity, no midline tenderness, no CVA tenderness. UPPER EXTREMITIES: upper extremities are grossly normal. LOWER EXTREMITIES: No pitting edema. NEURO EXAM: Normal sensorium, cranial nerves II-XII grossly intact, normal speech, no gross weakness of arms, no gross weakness of legs. MEDICAL DECISION MAKING: Patient is an 80-year-old male who presents ER for lower back pain as well as not feeling well. IV was established blood work was obtained. He was found to be tachycardic and borderline febrile. Labs show leukocytosis of 23,000. No significant anemia. Large left shift. INR unremarkable. BMP with creatinine 1.6. Mild hyponatremia. Lactate was elevated at 3. Troponin was checked was 0.10. He was given IV fluids and IV Rocephin. UA shows clear UTI. CT shows an obstructing left ureteral stone which was proximal. Patient is clearly septic secondary to this infected urinary stone. Discussed with Dr. Grayson from urology who evaluate the patient at bedside and took him to the OR. Patient was updated bedside. Discussed with hospitalist Trey for further evaluation. Triage Nursing notes reviewed. Limited review of prior medical records performed Vital Signs: reviewed and remarkable for tachycardic and borderline febrile Differential diagnosis: Differential diagnoses includes but is not limited to gastritis, peptic ulcer disease, GERD, gallbladder disease, pancreatitis, small bowel obstruction, acute coronary syndrome, pericarditis, ischemic bowel, irritable bowel disease, irritable bowel syndrome, appendicitis, diverticulitis, malignancy, hernia, urinary tract infection, torsion,, perforation, trauma, infectious. ER treatment provided: See below Diagnostics interpreted by me: ECG: Sinus cardia rate of 100 Normal axis No PVCs QTC 412 Cardiac Monitoring: An order was placed for continuous cardiac monitoring. The monitor shows a rate of 98 with sinus rhythm. Laboratory studies: As stated above and show below. Imaging studies: CT abdomen pelvis shows a kidney stone with hydronephrosis Consultation(s): As discussed above with the hospitalist and urologist Procedures: none Critical Care: I have personally spent 31 minutes of critical care time in the direct management of this patient. This includes bedside care, interpretation of diagnostic studies, and testing, discussion with consultants, patient, and family members, and other required patient management activities. This 31 minutes is in excess of all separately billable procedures. Past Med/Surg History Medical History BPH (benign prostatic hyperplasia) Diabetes mellitus GERD (gastroesophageal reflux disease) Hematuria History of paroxysmal supraventricular tachycardia History of renal calculi HTN (hypertension), benign Hyperlipidemia Hypothyroidism (acquired) Polymyalgia rheumatica Prostate cancer Vitamin D deficiency Voiding dysfunction Surgical History H/O prostate biopsy (~2000) History of prior ablation treatment (07/2013) History of prostatectomy (1999) History of total knee arthroplasty (~2012) Bilateral S/P cataract surgery 01/28/2018; 02/11/2018 S/P trigger finger release (~10/2016) Right hand Family History Brother Prostate cancer Denies family history of Ovarian cancer Myocardial infarction Breast cancer Colorectal cancer Social History Smoking Status: Never smoker Second Hand Exposure: No; Do You Dip or Chew Tobacco: No; Tobacco Cessation Education Requested by Patient: No Hx Alcohol Use: No Hx Substance Use: No Preferred Language: Kinyarwanda Communication Ability: Effective Visual Impairment: No Limitations Hearing Ability: Normal Twill Cutter Required: No Beliefs That Will Affect Care: None marital status: Current Living Situation: Significant Other current occupational status: retired Other Information That Helps Us Care for You: No Feels Safe at Home: Yes caffeine: Yes during the past year weight has: remained stable Dental Care, Regularly: Yes Physical Activity Frequency: Daily Physical Activity Frequency Comment: walking/ymca Seatbelt Use: always Sunscreen Use: Yes Assistive Devices: Glasses Allergies Allergies Allergy/AdvReac Type Severity Reaction Status Date / Time lisinopril Allergy Severe swollen Verified 10/09/21 20:14 tongue adhesive Allergy Intermediate SORE RASH Verified 10/09/21 20:14 WITH TAPE Home Meds Home Medications Medication Instructions Recorded Confirmed folic acid 800 mcg tablet 0.8 mg PO QAM 03/12/20 10/09/21 cholecalciferol (vitamin D3) 25 5,000 unit PO QAM tab 07/03/20 10/09/21 mcg (1,000 unit) tablet (Vitamin D3) ascorbic acid (vitamin C) 500 mg 500 mg PO DAILY 10/09/21 10/09/21 tablet (Vitamin C) aspirin 81 mg tablet,delayed 81 mg PO DAILY 10/09/21 10/09/21 release ketoconazole 2 % topical cream 1 applic TOPICAL BID PRN 10/09/21 10/09/21 simvastatin 20 mg tablet 20 mg PO QPM 10/09/21 10/09/21 Previous Rx's Medication Instructions Recorded magnesium oxide 400 mg PO BID #180 tab 07/19/20 betamethasone dipropionate 0.05 % 1 applic TOPICAL BID PRN #45 g 01/05/21 topical cream amlodipine 5 mg tablet 5 mg PO QAM #90 tab 03/27/21 glipizide 5 mg tablet, extended 5 mg PO QAM #90 tab 03/27/21 release 24 hr hydrochlorothiazide 12.5 mg capsule 12.5 mg PO QAM #90 cap 03/27/21 levothyroxine 112 mcg tablet 112 mcg PO DAILY #90 tab 03/27/21 losartan 25 mg tablet 25 mg PO QAM #90 tab 03/27/21 metformin 1,000 mg tablet 1,000 mg PO BID #180 tab 03/27/21 omeprazole 20 mg capsule,delayed 20 mg PO DAILY #90 cap 08/21/21 release Results & Data (ED) Vital Signs Vital Signs - 24 hr 10/09/21 15:25 10/09/21 19:25 Temperature 37.6 C H Temperature Source Temporal Artery Scan Pulse Rate 112 H Pulse Rate [Apical] 94 H Pulse Rhythm Regular Pulse Rhythm [Apical] Regular Pulse Strength Normal Pulse Strength [Apical] Normal Respiratory Rate 20 18 Respiratory Effort / Characteristics Non-Labored Spontaneous Non-Labored Respiratory Depth Normal Normal Respiratory Pattern Regular Regular Blood Pressure 144/77 H Blood Pressure [Left Arm] 106/66 Blood Pressure Mean 99 Blood Pressure Mean [Left Arm] 79 Blood Pressure Position Sitting Blood Pressure Position [Left Arm] Lying Pulse Oximetry 95 96 Oxygen Delivery Method Room Air Room Air Sepsis Recent Fever Within 48 Hours No Sepsis New/Unexplained Change in Mental Status N/A Sepsis Action Taken by Nursing No Action Required Laboratory Data Result diagrams: 10/09/21 17:26 10/09/21 17:26 Lab Results 10/09/21 10/09/21 10/09/21 Range/Units 17:26 17:26 17:26 WBC 23.73 H (4.8-10.8) K/uL RBC 4.75 (4.7-6.1) M/uL Hgb 15.2 (14.0-18.0) g/dL Hct 44.7 (42-52) % MCV 94.1 (80-100) fL MCH 32.0 (25-34) pg MCHC 34.0 (32-36) g/dL RDW Std Deviation 45.8 (36.4-46.3) fL RDW Coeff of Orly 13.2 (11.5-14.5) % Plt Count 240 (130-400) K/uL MPV 10.1 (7.4-10.4) fL Immature Gran % (Auto) 0.5 % Neut % (Auto) 87.3 % Lymph % (Auto) 4.6 % Franklin % (Auto) 7.4 % Eos % (Auto) 0.0 % Baso % (Auto) 0.2 % Neut # (Auto) 20.72 H (1.4-6.5) K/uL Lymph # (Auto) 1.09 L (1.2-3.4) K/uL Franklin # (Auto) 1.76 H (0.11-0.59) K/uL Eos # (Auto) 0.00 (0-0.5) K/uL Baso # (Auto) 0.04 (0-0.2) K/uL Immature Gran # (Auto) 0.12 H (0.00-0.02) K/uL PT 10.9 (9.0-12.0) Seconds INR 1.1 (0.9-1.1) APTT 27.8 (21.0-31.0) Seconds PTT Ratio 1.1 Sodium 134 L (136-145) mmol/L Potassium 4.3 (3.5-5.1) mmol/L Chloride 95 L (98-107) mmol/L Carbon Dioxide 26 (21-32) mmol/L Anion Gap 13 H (3-11) BUN 35 H (6-23) mg/dl Creatinine 1.64 H (0.6-1.4) mg/dl Est Cr Clr Drug Dosing Not Reportable Est GFR ( Amer) 45.1 ml/min Est GFR (Non-Af Amer) 38.9 ml/min BUN/Creatinine Ratio 21.3 H (10-20) Glucose 283 H (70-99(Fasting)) mg/dl Lactate (0.4-2.0) mmol/L Calcium 10.0 (8.5-10.1) mg/dl Magnesium 1.5 L (1.7-2.4) mg/dl Total Bilirubin 1.0 (0.2-1.0) mg/dl AST 42 H (13-39) U/L ALT 64 H (7-52) U/L Alkaline Phosphatase 87 (34-104) U/L Troponin I (0-0.04) ng/ml Total Protein 7.4 (6.0-8.3) gm/dl Albumin 4.1 (3.4-5.0) gm/dl Globulin 3.3 (2.5-4.0) gm/dl Albumin/Globulin Ratio 1.2 (0.9-2) Urine Color Urine Appearance (Clear) Urine pH (4.5-7.5) Ur Specific [place] (1.000-1.030) Urine Protein (Negative) Urine Glucose (UA) (Negative) Urine Ketones (Negative) Urine Blood (Negative) Urine Nitrite (Negative) Urine Bilirubin (Negative) Urine Urobilinogen (Negative) Ur Leukocyte Esterase (Negative) Urine RBC (0-4) /hpf Urine WBC (0-5) /hpf Ur Epithelial Cells (0-5) /lpf Urine Bacteria (Negative) SARS-CoV-2, RNA, NAAT (NEGATIVE) 10/09/21 10/09/21 10/09/21 Range/Units 19:26 19:49 20:27 WBC (4.8-10.8) K/uL RBC (4.7-6.1) M/uL Hgb (14.0-18.0) g/dL Hct (42-52) % MCV (80-100) fL MCH (25-34) pg MCHC (32-36) g/dL RDW Std Deviation (36.4-46.3) fL RDW Coeff of Orly (11.5-14.5) % Plt Count (130-400) K/uL MPV (7.4-10.4) fL Immature Gran % (Auto) % Neut % (Auto) % Lymph % (Auto) % Franklin % (Auto) % Eos % (Auto) % Baso % (Auto) % Neut # (Auto) (1.4-6.5) K/uL Lymph # (Auto) (1.2-3.4) K/uL Franklin # (Auto) (0.11-0.59) K/uL Eos # (Auto) (0-0.5) K/uL Baso # (Auto) (0-0.2) K/uL Immature Gran # (Auto) (0.00-0.02) K/uL PT (9.0-12.0) Seconds INR (0.9-1.1) APTT (21.0-31.0) Seconds PTT Ratio Sodium (136-145) mmol/L Potassium (3.5-5.1) mmol/L Chloride (98-107) mmol/L Carbon Dioxide (21-32) mmol/L Anion Gap (3-11) BUN (6-23) mg/dl Creatinine (0.6-1.4) mg/dl Est Cr Clr Drug Dosing Est GFR ( Amer) ml/min Est GFR (Non-Af Amer) ml/min BUN/Creatinine Ratio (10-20) Glucose (70-99(Fasting)) mg/dl Lactate 3.0 H* (0.4-2.0) mmol/L Calcium (8.5-10.1) mg/dl Magnesium (1.7-2.4) mg/dl Total Bilirubin (0.2-1.0) mg/dl AST (13-39) U/L ALT (7-52) U/L Alkaline Phosphatase (34-104) U/L Troponin I (0-0.04) ng/ml Total Protein (6.0-8.3) gm/dl Albumin (3.4-5.0) gm/dl Globulin (2.5-4.0) gm/dl Albumin/Globulin Ratio (0.9-2) Urine Color Yellow Urine Appearance Turbid A (Clear) Urine pH 5.0 (4.5-7.5) Ur Specific [place] >= 1.030 (1.000-1.030) Urine Protein 2+ H (Negative) Urine Glucose (UA) Negative (Negative) Urine Ketones Trace H (Negative) Urine Blood 3+ H (Negative) Urine Nitrite Negative (Negative) Urine Bilirubin 1+ H (Negative) Urine Urobilinogen Negative (Negative) Ur Leukocyte Esterase 3+ H (Negative) Urine RBC >30 H (0-4) /hpf Urine WBC >30 H (0-5) /hpf Ur Epithelial Cells 5-10 H (0-5) /lpf Urine Bacteria 1+ H (Negative) SARS-CoV-2, RNA, NAAT NEGATIVE (NEGATIVE) 10/09/21 Range/Units 20:27 WBC (4.8-10.8) K/uL RBC (4.7-6.1) M/uL Hgb (14.0-18.0) g/dL Hct (42-52) % MCV (80-100) fL MCH (25-34) pg MCHC (32-36) g/dL RDW Std Deviation (36.4-46.3) fL RDW Coeff of Orly (11.5-14.5) % Plt Count (130-400) K/uL MPV (7.4-10.4) fL Immature Gran % (Auto) % Neut % (Auto) % Lymph % (Auto) % Franklin % (Auto) % Eos % (Auto) % Baso % (Auto) % Neut # (Auto) (1.4-6.5) K/uL Lymph # (Auto) (1.2-3.4) K/uL Franklin # (Auto) (0.11-0.59) K/uL Eos # (Auto) (0-0.5) K/uL Baso # (Auto) (0-0.2) K/uL Immature Gran # (Auto) (0.00-0.02) K/uL PT (9.0-12.0) Seconds INR (0.9-1.1) APTT (21.0-31.0) Seconds PTT Ratio Sodium (136-145) mmol/L Potassium (3.5-5.1) mmol/L Chloride (98-107) mmol/L Carbon Dioxide (21-32) mmol/L Anion Gap (3-11) BUN (6-23) mg/dl Creatinine (0.6-1.4) mg/dl Est Cr Clr Drug Dosing Est GFR ( Amer) ml/min Est GFR (Non-Af Amer) ml/min BUN/Creatinine Ratio (10-20) Glucose (70-99(Fasting)) mg/dl Lactate (0.4-2.0) mmol/L Calcium (8.5-10.1) mg/dl Magnesium (1.7-2.4) mg/dl Total Bilirubin (0.2-1.0) mg/dl AST (13-39) U/L ALT (7-52) U/L Alkaline Phosphatase (34-104) U/L Troponin I 0.10 H* (0-0.04) ng/ml Total Protein (6.0-8.3) gm/dl Albumin (3.4-5.0) gm/dl Globulin (2.5-4.0) gm/dl Albumin/Globulin Ratio (0.9-2) Urine Color Urine Appearance (Clear) Urine pH (4.5-7.5) Ur Specific [place] (1.000-1.030) Urine Protein (Negative) Urine Glucose (UA) (Negative) Urine Ketones (Negative) Urine Blood (Negative) Urine Nitrite (Negative) Urine Bilirubin (Negative) Urine Urobilinogen (Negative) Ur Leukocyte Esterase (Negative) Urine RBC (0-4) /hpf Urine WBC (0-5) /hpf Ur Epithelial Cells (0-5) /lpf Urine Bacteria (Negative) SARS-CoV-2, RNA, NAAT (NEGATIVE) Administered Medications Diatrizoate Meglumine (Diatrizoate Meglumine 30% 100ml Vial) 6 ml INSTIL UD PRN PRN Reason: Radiology Use Stop: 10/13/21 21:42 Last Admin: 10/09/21 21:23 Dose: 6 ml Documented by: [id number] Discontinued Medications Acetaminophen (Acetaminophen 325 Mg Tab) 650 mg PO NOW STA Stop: 10/09/21 19:03 Last Admin: 10/09/21 20:01 Dose: 650 mg Documented by: [id number] Sodium Chloride (Nss 1000ml) 1,000 mls @ 999 mls/hr IV .Q1H1M ONE Stop: 10/09/21 19:59 Last Admin: 10/09/21 20:01 Dose: 999 mls/hr Documented by: [id number] Ceftriaxone Sodium (Rocephin) 1,000 mg in 50 mls @ 100 mls/hr IV NOW STA Stop: 10/09/21 19:29 Last Admin: 10/09/21 20:36 Dose: 100 mls/hr Documented by: [id number] Ioversol (Optiray 320 100ml) 96 ml IV ONCE ONE Stop: 10/09/21 19:39 Last Admin: 10/09/21 19:40 Dose: 96 ml Documented by: [id number] Imaging Data Radiologist's Impression: Humerus X-Ray 10/09/21 15:28 XR humerus LT 2V CLINICAL HISTORY: Left arm pain, fall TECHNIQUE: 2 radiographic views of the left humerus were obtained. Comparison: None available at the time of this dictation. FINDINGS: There is no evidence for fracture, subluxation or dislocation. There is normal anatomic alignment of the bones. The visualized portion of the shoulder and elbow joints are unremarkable. There is normal bone mineralization. The soft tissues are unremarkable. IMPRESSION: No acute osseous injury ACT 112: Negative or not required by law. Electronically signed by: Renny Del Castillo M.D. 10/09/2021 5:40 PM Chest X-Ray 10/09/21 15:30 XR chest 1V portable CLINICAL HISTORY: Weakness TECHNIQUE: Single frontal radiograph of the chest was obtained. Comparison: Comparison is made to chest one view 03/12/2020 FINDINGS: No lines and tubes are seen. The cardiomediastinal silhouette is normal. Lungs are underinflated but clear. No evidence of pleural effusion or pneumothorax. IMPRESSION: No acute chest disease. ACT 112: Negative or not required by law. Electronically signed by: Renny Del Castillo M.D. 10/09/2021 5:39 PM Abdomen/Pelvis CT 10/09/21 17:09 CT abd pelvis IV con only CLINICAL HISTORY: fall, back pain, hematuria TECHNIQUE: Helical axial images of the abdomen and pelvis were obtained and displayed. Automated dose lowering techniques and/or adjustment according to patient size were utilized for this exam. This exam was performed with intravenous contrast. COMPARISON: Comparison is made to CT abdomen pelvis 06/28/2008 FINDINGS: Lower chest: Bibasilar atelectasis versus scarring is seen. Liver: Unremarkable. No focal lesions are seen. Gallbladder and biliary tree: No calcified gallstones. Normal caliber wall. No intra- or extrahepatic biliary ductal dilation. Pancreas: Unremarkable, no focal lesions. Spleen: Unremarkable. Adrenals: Unremarkable. Kidneys and ureters: There is an obstructive stone in the proximal left ureter measuring 7 mm in diameter with resulting hydronephrosis. Nonobstructive stones are also seen bilaterally. Bladder: Limited evaluation due to underdistention. Reproductive organs: Unremarkable. Bowel: Diverticulosis is seen without evidence of diverticulitis. Lymph nodes Retroperitoneal: Unremarkable. Mesenteric: Unremarkable. Pelvic: Unremarkable. Peritoneum: Normal. Vessels: Unremarkable. Abdominal wall: Unremarkable. Bones: Degenerative changes in the visualized spine. IMPRESSION: Obstructive nephrolithiasis on the left with resultant hydronephrosis. ACT 112: Negative or not required by law. Electronically signed by: Renny Del Castillo M.D. 10/09/2021 7:[address] 10/09/21 19:03 CT cervical spine wo con CLINICAL HISTORY: fall TECHNIQUE: Multidetector row helical CT of the cervical spine was performed without administration of intravenous contrast. Coronal and sagittal reformations were obtained. Automated dose lowering techniques and/or adjustment according to patient size were utilized for this exam. Comparison: None available at the time of this dictation. FINDINGS: No acute fractures or subluxations are identified. Degenerative changes are seen in the visualized spine. The alignment is normal. Soft tissues are unremarkable. IMPRESSION: No evidence of acute bony injury. ACT 112: Negative or not required by law. Electronically signed by: Renny Del Castillo M.D. 10/09/2021 7:[address] 10/09/21 19:03 CT head/brain wo con CLINICAL HISTORY: fall Technique: Contiguous axial CT images of the head were acquired from the base of the skull to the vertex without intravenous contrast administration. Images were viewed in brain, subdural and bone windows. Automated dose lowering techniques and/or adjustment according to patient size were utilized for this exam. Comparison: Comparison is made to CT head 03/12/2020 Findings: The ventricles, basal cisterns, and cerebral sulci are normal. There is no acute intracranial hemorrhage or evidence of acute territorial infarction. Neither mass effect, shift of the midline structures, nor abnormal extra-axial fluid collections are shown. Imaged portions of the paranasal sinuses and mastoid air cells are clear. The orbits appear normal. There are no acute fractures of the calvaria or scalp swelling. Impression: No acute intracranial hemorrhage, no evidence of acute territorial infarction or other acute intracranial disease process. ACT 112: Negative or not required by law. Electronically signed by: Renny Del Castillo M.D. 10/09/2021 7:45 PM Discharge Plan Visit Data Chief Complaint: Fall Stated Complaint: FALLS, POSS UTI, LOWER BACK PAIN ED Provider: Cristi Mahan Discharge Problem: Sepsis, Renal colic, Hydronephrosis, Leukocytosis, Acute UTI Discharge Instructions Interventions: ED Discharge Assessment Last Done: 10/09/21 20:57 Discharge Problem: Sepsis Qualifiers: Sepsis type: sepsis due to unspecified organism Sepsis acute organ dysfunction status: unspecified Qualified Code(s): A41.9 - Sepsis, unspecified organism Hydronephrosis Qualifiers: Hydronephrosis type: unspecified Qualified Code(s): N13.30 - Unspecified hydronephrosis Leukocytosis Qualifiers: Leukocytosis type: unspecified Qualified Code(s): D72.829 - Elevated white blood cell count, unspecified
[2021-10-09] MEDS ORDERED: OPTIRAY 320 100ml IV ONE (19:38)
[2021-10-09 19:44] LABS: Appearance Urine Turbid (Clear); Bilirubin Urine 1+ (Negative); Blood Urine 3+ (Negative); Color Urine Yellow; Glucose Urine UA Negative (Negative); Ketones Urine Trace (Negative); Leukocyte Esterase Urine 3+ (Negative); Nitrite Urine Negative (Negative); Protein Urine 2+ (Negative); Specific Gravity Urine >= 1.030 (1.000-1.030); Urobilinogen Urine Negative (Negative)
--- NOTE | 2021-10-09 19:47 | CT Scan Report ---
CT head/brain wo con CLINICAL HISTORY: fall Technique: Contiguous axial CT images of the head were acquired from the base of the skull to the dariana diana without intravenous contrast administration. Images were viewed in brain, subdural and bone [facility]. Automated dose lowering techniques and/or adjustment according to patient size were utilized for this exam. Comparison: Comparison is made to CT head 03/12/2020 Findings: The ventricles, basal cisterns, and cerebral sulci are normal. There is no acute intracranial hemorrh age or evidence of acute territorial infarction. Neither mass effect, shift of the midline structures , nor abnormal extra-axial fluid collections are shown. Imaged portions of the paranasal sinuses and mastoid air cells are clear. The orbits appear normal. There are no acute fractures of the calvaria or scalp swelling. Impression: No acute intracranial hemorrhage, no evidence of acute territorial infarction or other acute intracra nial disease process. ACT 112: Negative or not required by law. Electronically signed by: Renny Del Castillo M.D. 10/09/2021 7:45 PM
--- NOTE | 2021-10-09 19:48 | CT Scan Report ---
CT cervical spine wo con CLINICAL HISTORY: fall TECHNIQUE: Multidetector row helical CT of the cervical spine was performed without administration of intravenous contrast. Coronal and sagittal reformations were obtained. Automated dose lowering techn iques and/or adjustment according to patient size were utilized for this exam. Comparison: None available at the time of this dictation. FINDINGS: No acute fractures or subluxations are identified. Degenerative changes are seen in the visualized sp ine. The alignment is normal. Soft tissues are unremarkable. IMPRESSION: No evidence of acute bony injury. ACT 112: Negative or not required by law. Electronically signed by: Renny Del Castillo M.D. 10/09/2021 7:47 PM
[2021-10-09 19:50] LABS: Bacteria Urine 1+ (Negative); RBC Urine >30 /hpf (0-4); WBC Urine >30 /hpf (0-5)
--- NOTE | 2021-10-09 19:57 | CT Scan Report ---
CT abd pelvis IV con only CLINICAL HISTORY: fall, back pain, hematuria TECHNIQUE: Helical axial images of the abdomen and pelvis were obtained and displayed. Automated dose lowering techniques and/or adjustment according to patient size were utilized for this exam. This e xam was performed with intravenous contrast. COMPARISON: Comparison is made to CT abdomen pelvis 06/28/2008 FINDINGS: Lower chest: Bibasilar atelectasis versus scarring is seen. Liver: Unremarkable. No focal lesions are seen. Gallbladder and biliary tree: No calcified gallstones. Normal caliber wall. No intra- or extrahepatic biliary ductal dilation. Pancreas: Unremarkable, no focal lesions. Spleen: Unremarkable. Adrenals: Unremarkable. Kidneys and ureters: There is an obstructive stone in the proximal left ureter measuring 7 mm in diam eter with resulting hydronephrosis. Nonobstructive stones are also seen bilaterally. Bladder: Limited evaluation due to underdistention. Reproductive organs: Unremarkable. Bowel: Diverticulosis is seen without evidence of diverticulitis. Lymph nodes Retroperitoneal: Unremarkable. Mesenteric: Unremarkable. Pelvic: Unremarkable. Peritoneum: Normal. Vessels: Unremarkable. Abdominal wall: Unremarkable. Bones: Degenerative changes in the visualized spine. IMPRESSION: Obstructive nephrolithiasis on the left with resultant hydronephrosis. ACT 112: Negative or not required by law. Electronically signed by: Renny Del Castillo M.D. 10/09/2021 7:56 PM
--- NOTE | 2021-10-09 20:22 | Urology Consultation ---
Date of Consultation October 09, 2021 Assessment & Plan (1) Nephrolithiasis: There is concerned that the patient has sepsis from urinary source and is in the process of being admitted by the hospitalist. It appears that the patient has hydronephrosis and a urinary tract infection. Due to the underlying sepsis we recommend proceeding as follows: Right analgesicsprovide antiemetics Provide IV fluid for hydration The patient n.p.o. for the present time Maintain the patient on antibiotics. Antibiotics can then be tailored based on patient's clinical response as well as culture data once becomes available. The concern for sepsis from urinary source in the setting of an obstructing kidney stone patient will be taken urgently to the operating room by Dr. Grayson this evening for a cystoscopy and ureteral stent placement Additional recommendations will be made based on operative findings and the patient's clinical course as it unfolds Supervising Physician Co-Signing Physician Notes Agree with note above. Patient seen personally, discussed left obstructing stone and concern for infection based on UA and WBC. Plan for left ureteral stent placement now. Risks and benefits discussed, consent obtained. Patient marked. History of Present Illness Reason for Consultation: Nephrolithiasis History of Present Illness This is an 80-year-old male who presented to [facility] emergency department secondary to left lower back pain. She says that the pain is located primarily in the left side but also somewhat in the center of his back. He says it does not radiate to the front of his abdomen. He denies any nausea vomiting. He denies any fevers but has had some shakes and chills. He also notes hematuria and urinary frequency but denies any dysuria. Because of his symptomatology he was seen by his primary care physician earlier today and he was diagnosed with a urinary tract infection. Patient further reports that throughout the course of the day he has fallen down twice. He denies any lightheadedness, shortness of breath, or chest pain prior to falling but because of the symptomatology he presented to the emergency department. It is noteworthy mention that the patient does report a history of kidney stones in the past on multiple occasions for which she required lithotripsy. She does note that he follows locally with Dr. Aaron Ruiz. In the emergency department the patient had labs and imaging which I independently reviewed. The patient did have an x-ray of his left humerus that showed no evidence of fracture. He did have a chest x-ray that showed no evidence of pneumonia. He had a CT scan of his abdomen pelvis that showed patient had left-sided hydronephrosis with a 7 mm kidney stone in the proximal left ureter causing obstructive symptoms. A cervical spine CT scan showed no evidence of fracture or subluxation. A CT scan the patient's head showed no evidence of a stroke, intracerebral hemorrhage, or fracture. Labs include a CBC her white blood cell count is elevated at 23.7. Hemoglobin, hematocrit, and platelet count are all within normal range. Coagulation studies noted to be normal. Chemistry profile showed sodium was 134 with a normal potassium. His BUN and creatinine are 35 and 1.6. This level of creatinine is above his baseline which usually runs about 1.0-1.2. Urinalysis showed turbid urine with 3+ blood and was negative for nitrites. He did have 3+ leukocyte esterase and greater than 30 white blood cells per high-power field. In addition he was noted to have 1+ bacteria. A Covid test was performed and was noted to be negative. Patient's old records were reviewed and he did have a urinary tract infection on 07/17/2021 at which time a urine culture grew out pansensitive E. coli. In the emergency department patient had a low-grade temperature of 37.6. He was noted to be hemodynamically stable (normotensive) however he was noted to be tachycardic with a heart rate anywhere from 90-115. In the emergency department a urine culture has been sent. Patient has thus far received antibiotics in the form of Rocephin. At the time of my interview the patient was resting comfortably in bed he was in no distress. Allergies Allergy/AdvReac Type Severity Reaction Status Date / Time lisinopril Allergy Severe swollen Verified 10/09/21 20:14 tongue adhesive Allergy Intermediate SORE RASH Verified 10/09/21 20:14 WITH TAPE Home Medications Medication Instructions Recorded Confirmed Type folic acid 800 mcg tablet 0.8 mg PO QAM 03/12/20 10/09/21 History cholecalciferol (vitamin D3) 25 5,000 unit PO QAM tab 07/03/20 10/09/21 History mcg (1,000 unit) tablet (Vitamin D3) magnesium oxide 400 mg PO BID #180 tab 07/19/20 10/09/21 Rx betamethasone dipropionate 0.05 % 1 applic TOPICAL BID PRN #45 g 01/05/21 10/09/21 Rx topical cream amlodipine 5 mg tablet 5 mg PO QAM #90 tab 03/27/21 10/09/21 Rx glipizide 5 mg tablet, extended 5 mg PO QAM #90 tab 03/27/21 10/09/21 Rx release 24 hr hydrochlorothiazide 12.5 mg capsule 12.5 mg PO QAM #90 cap 03/27/21 10/09/21 Rx levothyroxine 112 mcg tablet 112 mcg PO DAILY #90 tab 03/27/21 10/09/21 Rx losartan 25 mg tablet 25 mg PO QAM #90 tab 03/27/21 10/09/21 Rx metformin 1,000 mg tablet 1,000 mg PO BID #180 tab 03/27/21 10/09/21 Rx omeprazole 20 mg capsule,delayed 20 mg PO DAILY #90 cap 08/21/21 10/09/21 Rx release ascorbic acid (vitamin C) 500 mg 500 mg PO DAILY 10/09/21 10/09/21 History tablet (Vitamin C) aspirin 81 mg tablet,delayed 81 mg PO DAILY 10/09/21 10/09/21 History release ketoconazole 2 % topical cream 1 applic TOPICAL BID PRN 10/09/21 10/09/21 History simvastatin 20 mg tablet 20 mg PO QPM 10/09/21 10/09/21 History Patient History Medical History BPH (benign prostatic hyperplasia) Diabetes mellitus GERD (gastroesophageal reflux disease) Hematuria History of paroxysmal supraventricular tachycardia History of renal calculi HTN (hypertension), benign Hyperlipidemia Hypothyroidism (acquired) Polymyalgia rheumatica Prostate cancer Vitamin D deficiency Voiding dysfunction Surgical History H/O prostate biopsy (~2000) History of prior ablation treatment (07/2013) History of prostatectomy (1999) History of total knee arthroplasty (~2012) Bilateral S/P cataract surgery 01/28/2018; 02/11/2018 S/P trigger finger release (~10/2016) Right hand Family History Brother Prostate cancer Denies family history of Ovarian cancer Myocardial infarction Breast cancer Colorectal cancer Social History Smoking Status: Never smoker Second Hand Exposure: No; Hx Alcohol Use: No Hx Substance Use: No Preferred Language: Slovenian Communication Ability: Effective Visual Impairment: No Limitations Hearing Ability: Normal 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 Lockstitch Required: No Beliefs That Will Affect Care: None marital status: Current Living Situation: Significant Other current occupational status: retired Feels Safe at Home: Yes caffeine: Yes during the past year weight has: remained stable Dental Care, Regularly: Yes Physical Activity Frequency: Daily Physical Activity Frequency Comment: walking/ymca Seatbelt Use: always Sunscreen Use: Yes Assistive Devices: Glasses Review of Systems Constitutional: + chills; no fever Eyes: no diplopia Ear, Nose, Mouth, Throat: no ear pain Respiratory: no cough and no dyspnea Cardiovascular: no chest pain Gastrointestinal: + abdominal pain; no nausea and no vomiting Genitourinary: + as per Subjective / HPI, + urinary frequency, + hematuria and + flank pain (Left-sided) Musculoskeletal: + back pain Integumentary: no rash Neurologic: + falls; no localized weakness Physical Exam Constitutional: well developed and well nourished; no acute distress Eyes: no conjunctival abnormality ENMT: Ears: no hearing impairment and no external ear abnormality Mouth: no oropharynx abnormality Neck: trachea midline Respiratory: normal respiratory effort; no respiratory distress and no labored breathing Cardiovascular: Rate/Rhythm: regular rate and regular rhythm Gastrointestinal (Abdomen): Soft, nontender, nondistended. Palpation did not cause pain Musculoskeletal: No calf tenderness Skin: no rashes Neurologic: moves all extremities Psychiatric: A+Ox3, euthymic affect Genitourinary: no CVA tenderness Results & Data ([facility]) Vital Signs (Past 12 Hours) Vital Signs Temp Pulse Pulse Resp BP BP Pulse Ox 10/09/21 19:25 94 H 18 106/66 96 10/09/21 15:25 37.6 C H 112 H 20 144/77 H 95 PG Care Time/CCT Total # of Minutes Spent Total Time Spent with Patient: Total time spent is greater than 50% in coordination of care (as documented) at patient's floor/unit and/or counseling patient: Coding Level of Care Code 81275 Inpt Consult Level 5 Diagnoses Nephrolithiasis N20.0
[2021-10-09] MEDS ORDERED: PROPOFOL IV EMULSION 10 MG/ML 20 ML VIAL IV ONE (20:39)
--- NOTE | 2021-10-09 20:53 | Post Operative Brief Note ---
PG Immediate Post Op with CF Date of Surgery October 09, 2021 Pre & Post Diagnosis Left ureteral calculus, concern for UTI Operation Date: 10/09/21 20:45 <No data on this case meets the specified criteria> Left ureteral calculus, concern for UTI I identified the patient and participated in the time-out.: Yes Procedure Cystoscopy, left retrograde, left ureteral stent placement Operation Date: 10/09/21 20:45 Actual Procedures p Cystoscopy Retrograde(Left), left ureteral stent placement - Efraín Grayson MD Surgeon Efraín Grayson MD Medical Biller None Estimated Blood Loss 0 Findings See Below 1. Purulent urine from left UO 2. Retrograde showed mild left hydro 3. Stent in good position Drains Other (6x26 L, 16fr win ) Anesthesia Type General Complications None Disposition Accompanied Patient To Recovery: No Disposition: Recovery Room Overlapping Procedure I was present for: the critical portions of procedure.
--- NOTE | 2021-10-09 20:54 | Operative Report ---
PG Post Operative Report Pre & Post Diagnosis Left ureteral calculus, concern for urinary tract infection Operation Date: 10/09/21 20:45 <No data on this case meets the specified criteria> Left ureteral calculus, concern for urinary tract infection I identified the patient and participated in the time-out.: Yes Procedure Cystoscopy, left retrograde pyelogram with radiographic interpretation, left ureteral stent placement, Bloom catheter placement Operation Date: 10/09/21 20:45 Actual Procedures Cystoscopy, left retrograde pyelogram with radiographic interpretation, left ureteral stent placement, Bloom catheter placement- Efraín Grayson MD Surgeon Efraín Grayson MD Agricultural Equipment Salesperson None Estimated Blood Loss 0 Findings See Below 1. Left retrograde showed mild hydronephrosis 2. Purulent urine from left UO 3. Left stent in appropriate position Specimens None Drains 1. 6 Urdu by 26 cm left ureteral stent 2. 16 Urdu Bloom catheter with 10 cc in balloon Anesthesia Type General Complications None Indications 80-year-old male with a history of prostate cancer status post prostatectomy. Presented to the emergency department with hematuria and several falls. Hemodynamically stable with a temperature of 37.6 Celsius. Labs significant for a white blood cell count of 23. Creatinine noted to be 1.64. Urinalysis was negative for nitrites, 3+ leukocyte esterase, 30+ WBCs, 0-4 RBCs and 4+ bacter ia. CT scan showed a 7 mm left proximal ureteral calculus with hydronephrosis. Due to obstructing stone and concern for infection, patient was taken urgently to the operating room for above-noted procedure. Description of Procedure After informed consent was obtained, the patient was transported operative suite. MAC anesthesia was induced. The patient was placed in dorsal lithotomy position prepped and draped in a sterile fashion. They received preoperative ceftriaxone for antibiotic prophylaxis. An appropriate surgical timeout was performed. A 22 Urdu rigid scope was inserted per urethra into the bladder. Muse cystoscopy revealed no stones or lesions. I turned my attention the left ureteral orifice and intubated this with a 5 Urdu open-ended catheter. A left retrograde pyelogram was shot which showed mild left hydronephrosis. There was purulent urine from the left UO. Next field 26 A sensor wire was advanced into the kidney and confirmed fluoroscopically. A 6 Urdu by [] cm left ureteral stent was deployed with a good proximal coil in the renal pelvis and a good distal coil noted in the bladder. These were confirmed fluoroscopically and under direct visualization, respectively. The bladder was left full and the scope was removed. A 16 Urdu Bloom catheter was inserted with return of urine. Balloon was inflated with 10 cc of sterile water no set to gravity drainage. This concluded the end of the case. All counts were correct at the end of the case. I was present, scrubbed, and actively participated for the entire to the procedure. I attest to the content of the Intraoperative Record and any orders documented therein. Any exceptions are noted below.
[2021-10-09] MEDS ORDERED: MAGNESIUM SULFATE / D5W 1 GM/100 ML BAG IV STA (20:56)
[2021-10-09] MEDS ORDERED: ONDANSETRON INJ 2 MG/ML 2 ML VIAL IV PRN (21:02)
[2021-10-09] MEDS ORDERED: ATROPINE SULFATE 0.1 MG/ML 10ML SYR IV PRN (21:02)
[2021-10-09] MEDS ORDERED: ePHEDrine sulfate 50 MG/ML AMP IV PRN (21:02)
[2021-10-09] MEDS ORDERED: fentaNYL citrate 100 MCG/2 ML VIAL IV PRN (21:02)
--- NOTE | 2021-10-09 21:02 | Anesthesiology Consultation ---
Date of Service October 09, 2021 Assessment & Plan ASA [id number] Proposed Anesthesia Anesthesia Type: General Risk / Benefits Reviewed With: PT / POA / Parent / Guardian, Accepts Plan and Informed Consent Obtained History Surgery Operation Date: 10/09/21 20:45 Proposed Procedures p Cystoscopy, Retrograde Pyelogram, Left Ureteral Stent Placement(Left) - Efraín Grayson MD Height/Weight Height: 5 ft 9 in Weight: 86.7 kg Allergies Allergy/AdvReac Type Severity Reaction Status Date / Time lisinopril Allergy Severe swollen Verified 10/09/21 20:14 tongue adhesive Allergy Intermediate SORE RASH Verified 10/09/21 20:14 WITH TAPE Medications Home Medications Medication Instructions Recorded Confirmed Last Taken folic acid 800 mcg tablet 0.8 mg PO QAM 03/12/20 10/09/21 10/09/21 cholecalciferol (vitamin D3) 25 5,000 unit PO QAM tab 07/03/20 10/09/21 10/09/21 mcg (1,000 unit) tablet (Vitamin D3) magnesium oxide 400 mg PO BID #180 tab 07/19/20 10/09/21 10/09/21 08:00 betamethasone dipropionate 0.05 % 1 applic TOPICAL BID PRN #45 g 01/05/21 10/09/21 Unknown topical cream amlodipine 5 mg tablet 5 mg PO QAM #90 tab 03/27/21 10/09/21 10/09/21 glipizide 5 mg tablet, extended 5 mg PO QAM #90 tab 03/27/21 10/09/21 10/09/21 release 24 hr hydrochlorothiazide 12.5 mg capsule 12.5 mg PO QAM #90 cap 03/27/21 10/09/21 10/09/21 levothyroxine 112 mcg tablet 112 mcg PO DAILY #90 tab 03/27/21 10/09/21 10/09/21 losartan 25 mg tablet 25 mg PO QAM #90 tab 03/27/21 10/09/21 10/09/21 metformin 1,000 mg tablet 1,000 mg PO BID #180 tab 03/27/21 10/09/21 10/09/21 08:00 omeprazole 20 mg capsule,delayed 20 mg PO DAILY #90 cap 08/21/21 10/09/21 10/09/21 release ascorbic acid (vitamin C) 500 mg 500 mg PO DAILY 10/09/21 10/09/21 10/09/21 tablet (Vitamin C) aspirin 81 mg tablet,delayed 81 mg PO DAILY 10/09/21 10/09/21 10/09/21 release ketoconazole 2 % topical cream 1 applic TOPICAL BID PRN 10/09/21 10/09/21 Unknown simvastatin 20 mg tablet 20 mg PO QPM 10/09/21 10/09/21 10/08/21 NPO Date Last Intake of Fluids: 10/09/21 Time Last Intake of Fluids: 19:00 Date Last Intake of Solids: 10/09/21 Time Last Intake of Solids: 09:00 Past Medical History Medical History BPH (benign prostatic hyperplasia) Diabetes mellitus GERD (gastroesophageal reflux disease) Hematuria History of paroxysmal supraventricular tachycardia History of renal calculi HTN (hypertension), benign Hyperlipidemia Hypothyroidism (acquired) Polymyalgia rheumatica Prostate cancer Vitamin D deficiency Voiding dysfunction Exercise / Class Metabolic Activity II 4-5 Yardwork/Stairs/Walk up hill Past Family History Family History Brother Prostate cancer Denies family history of Ovarian cancer Myocardial infarction Breast cancer Colorectal cancer Past Surgical History Surgical History H/O prostate biopsy (~2000) History of prior ablation treatment (07/2013) History of prostatectomy (1999) History of total knee arthroplasty (~2012) Bilateral S/P cataract surgery 01/28/2018; 02/11/2018 S/P trigger finger release (~10/2016) Right hand Past Anesthesia History No Hx of Anesthesia Complications and No Family Hx of Anesthesia Complications History of PONV No Hx of PONV and No Hx of Motion Sickness Social History Smoking Status: Never smoker Hx Alcohol Use: No alcohol intake frequency: holidays/special occasions only Hx Substance Use: No substance use type: does not use Review of Systems denies fever/cough/ colds/ chest pain/ SOB/ DARLEEN denies DARLEEN Physical Exam Vital Signs Last Vital Signs Temp 37.6 C H 10/09/21 15:25 Pulse 88 10/09/21 20:57 Resp 17 10/09/21 20:57 BP 106/66 10/09/21 19:25 Pulse Ox 96 10/09/21 20:57 ENMT Mouth: no TMJ abnormality and no dentition abnormality Thyromental Distance: > or= 3.5 Finger Breadths Mallampati Class: II Neck neck extension not limited Respiratory normal respiratory effort; no respiratory distress Auscultation: lungs clear to auscultation bilaterally Cardiovascular Rate/Rhythm: regular rate and regular rhythm Neurologic moves all extremities Psychiatric Orientation: alert and oriented x 3 Testing Laboratory Results 10/09/21 17:26 10/09/21 17: PT 10.9 Seconds (9.0-12.0) 10/09/21 17: INR 1.1 (0.9-1.1) 10/09/21 17: APTT 27.8 Seconds (21.0-31.0) 10/09/21 17: Urine Color Yellow 10/09/21 19: Urine Appearance Turbid (Clear) A 10/09/21 19: Urine pH 5.0 (4.5-7.5) 10/09/21 19:26 Ur Specific [place] >= 1.030 (1.000-1.030) 10/09/21 19:26 Urine Protein 2+ (Negative) H 10/09/21 19:26 Urine Glucose (UA) Negative (Negative) 10/09/21 19: Urine Ketones Trace (Negative) H 10/09/21 19: Urine Nitrite Negative (Negative) 10/09/21 19: Ur Leukocyte Esterase 3+ (Negative) H 10/09/21 19:26 Urine RBC >30 /hpf (0-4) H 10/09/21 19:26 Urine WBC >30 /hpf (0-5) H 10/09/21 19:26 Ur Epithelial Cells 5-10 /lpf (0-5) H 10/09/21 19:26
[2021-10-09] MEDS ORDERED: DIATRIZOATE MEGLUMINE 30% 100ML VIAL INSTIL PRN (21:43)
--- NOTE | 2021-10-09 22:04 | Anesthesiology Progress Note ---
Date of Service October 09, 2021 Anesthesia Post Procedure Vital Signs Vital Signs: Temp Pulse Pulse Resp BP BP Pulse Ox 10/09/21 21:55 81 18 100/62 96 10/09/21 21:45 82 17 102/66 96 10/09/21 21:37 36.7 C 93 H 15 97/58 L 95 10/09/21 20:57 88 17 96 10/09/21 19:25 94 H 18 106/66 96 10/09/21 15:25 37.6 C H 112 H 20 144/77 H 95 Pain Intensity Back: Pain Intensity: 4 Transfer of Care Handoff Completed per policy Notes Mental Status: alert / awake / arousable and participated in evaluation Patient Amnestic to Procedure: Yes Nausea / Vomiting: adequately controlled Pain: adequately controlled Airway Patency, RR, SpO2: stable & adequate BP & HR: stable & adequate Hydration State: stable & adequate Anesthetic Complications: no major complications apparent and Pt Satisfied with anesthetic care
[2021-10-09] MEDS ORDERED: CARBOHYDRATES FOR HYPOGLYCEMIA PO PRN (22:50)
[2021-10-09] MEDS ORDERED: DEXTROSE 50% 50 ML SYRINGE IV PRN (22:50)
[2021-10-09] MEDS ORDERED: GLUCOSE 10 TABS/TUBE PO PRN (22:50)
[2021-10-09] MEDS ORDERED: GLUCOSE 40% GEL 15 GM TUBE PO PRN (22:50)
[2021-10-09] MEDS ORDERED: GLUCAGON FOR INJ 1 MG VIAL SQ PRN (22:50)
[2021-10-09] MEDS: SIMVASTATIN 20 MG TAB PO SCH (23:26)
[2021-10-09] MEDS: LACTATED RINGER'S 1,000 ML IV SCH (23:26)
[2021-10-09] MEDS: INSULIN GLARGINE SOLOSTAR 100 UNITS/ML 3 ML PEN SC SCH (23:26)
[2021-10-09] MEDS: INSULIN ASPART PER UNIT SC SCH (23:33)
[2021-10-10] MEDS ORDERED: OXYBUTYNIN CHLORIDE 5 MG TAB PO PRN (00:16)
[2021-10-10] MEDS: MAGNESIUM SULFATE / D5W 1 GM/100 ML BAG IV SCH ×2 (00:22→02:16)
--- NOTE | 2021-10-10 00:34 | History & Physical Report ---
Date of Service October 09, 2021 Assessment & Plan (1) Sepsis: Plan: Patient meets sepsis criteria on arrival with 2/4 SIRS criteria (RZ=347, WBC=23.73), (qSOFA=0) most likely urinary source. Found with obstructing left nephrolithiasis with hydronephrosis, UA suggestive of infection with bacteria present. Patient taken urgently to the OR for cystoscopy, stent placement. Afebrile, HD stable at present Prior urine culture from 07/17/21 - pansensitive E. coli -Admit to medical with telemetry -Maintain Bloom catheter with routine care q shift -Follow cultures sent from ER - blood and urine -Watch closely for worsening sepsis -Continue Ceftriaxone 2gm IV daily -Flomax 0.4mg daily -Ditropan 5mg po BID PRN discomfort -Appreciate Urology assistance (2) Nephrolithiasis: Plan: As above, patient with 7mm obstructing stone with hydronephrosis s/p removal with stent placement -Ceftriaxone 2gm IV daily -Flomax and Ditropan as needed -Bloom catheter (3) LEE (acute kidney injury): Plan: Elevation of BUN and Cr to 35 and 1.64, respectively. In setting of acute illness, nephrolithiasis -Avoid nephrotoxic agents -IVF as below -Repeat chemistry in AM (4) Elevated lactic acid level: Plan: Lactate elevated on arrival at 3 - improved to 2.5. Patient hemodynamically stable, BP presently 131/76 -LR as below -Per sepsis protocol - patient to have repeat lactate level drawn in 84 minutes from now. Will follow. (5) Elevated troponin: Plan: Patient with troponin of 0.1. Denies chest pain. No acute ischemic changes on EKG. Suspect Type II in setting of sepsis, renal compromise -Repeat troponin q 8 hours -Continue ASA (6) Diabetes mellitus: Plan: Elevated blood sugar on arrival - Txc=886. Patient overall reports adequate control. He is on metformin and glipizide. Last MyiQ6Z=2.6 on 07/11/21 -Hold oral agents -Lantus 5u BID -ISS -Goal blood sugar 100 - 140 (7) GERD (gastroesophageal reflux disease): Plan: Chronic. Stable on medication -Continue Protonix 40mg po daily (8) Polymyalgia rheumatica: Plan: Noted. No medications currently -Monitor (9) Hypothyroidism (acquired): Plan: Chronic. Stable on medication. TSH within normal rante at 1.66 on 07/11/21 -Continue Synthroid 112mcg po daily (10) Hyperlipidemia: Plan: Chronic. On statin -Continue Simvastatin 20mg po qPM (11) HTN (hypertension), benign: Plan: Blood pressure stable -Holding antihypertensives for now - can resume in AM -On Amlodipine 5mg po daily, HCTZ 12.5mg po daily -Losartan 25mg po daily - on hold Plan: F/E/N - LR at 80mL/hr x 2 liters, Mg=1.5 - will replete with 2gm, CC diet as tolerated Ppx - SCDs to bilateral LE Code - Full per discussion with patient Dispo - Admit to medical with telemetry Admission and Anticipated Discharge Date Admission Date: October 09, 2021 History of Present Illness Primary Care Provider: Lena Collier DO Reyes Sanchez is a pleasant 80yo male with history of HTN, HLP, DM, GERD, prostate CA s/p prostatectomy, nephrolithiasis with prior lithotripsy presenting with left lower back pain. Pain has been occurring intermittently for the last month. Was worse today. Also with chills and rigors. No reported fever. Patient states he is able to urinate without difficulty but does have some increased urgency as well as hematuria. Patient has fallen x 2 over the last day. He fell out of bed this AM around 02:30 and again later in the afternoon. He denies loss of consciousness or head trauma. Thinks he may have just become weak and dizzy prior to falling. No focal neurological deficits, incontinence, seizure activity. No chest pain or palpitations preceding or following these falls. In the ER patient afebrile, tachycardic upon arrival with HR of 112, otherwise HD stable, NAD. No respiratory distress, saturating well on room air. Workup revealed marked leukocytosis with WBC=23.73 with neutrophil predominance and bands. Mild elevation of BUN to 35 and Cr to 1.64 (from 27 and 1, respectively on 07/11/21). UA suggestive of infection with bacteria present. CT of the abdomen with obstructive stone in the left ureter measuring 7mm in diameter with resulting hydronephrosis. Patient was evaluated by Urology in the ER and was taken to the OR for cystoscopy, left retrograde pyelogram and left ureteral stent placement. Found with purulent urine from the left as well as mild left hydronephrosis. Stent placed without difficulty. Procedure well tolerated with no immediate complications identified. Patient to be admitted for ongoing antibiotics and symptom management. ER Course: Ceftriaxone, Tylenol Allergies Allergy/AdvReac Type Severity Reaction Status Date / Time lisinopril Allergy Severe swollen Verified 10/09/21 20:14 tongue adhesive Allergy Intermediate SORE RASH Verified 10/09/21 20:14 WITH TAPE Home Medications Medication Instructions Recorded Confirmed Type folic acid 800 mcg tablet 0.8 mg PO QAM 03/12/20 10/09/21 History cholecalciferol (vitamin D3) 25 5,000 unit PO QAM tab 07/03/20 10/09/21 History mcg (1,000 unit) tablet (Vitamin D3) magnesium oxide 400 mg PO BID #180 tab 07/19/20 10/09/21 Rx betamethasone dipropionate 0.05 % 1 applic TOPICAL BID PRN #45 g 01/05/21 10/09/21 Rx topical cream amlodipine 5 mg tablet 5 mg PO QAM #90 tab 03/27/21 10/09/21 Rx glipizide 5 mg tablet, extended 5 mg PO QAM #90 tab 03/27/21 10/09/21 Rx release 24 hr hydrochlorothiazide 12.5 mg capsule 12.5 mg PO QAM #90 cap 03/27/21 10/09/21 Rx levothyroxine 112 mcg tablet 112 mcg PO DAILY #90 tab 03/27/21 10/09/21 Rx losartan 25 mg tablet 25 mg PO QAM #90 tab 03/27/21 10/09/21 Rx metformin 1,000 mg tablet 1,000 mg PO BID #180 tab 03/27/21 10/09/21 Rx omeprazole 20 mg capsule,delayed 20 mg PO DAILY #90 cap 08/21/21 10/09/21 Rx release ascorbic acid (vitamin C) 500 mg 500 mg PO DAILY 10/09/21 10/09/21 History tablet (Vitamin C) aspirin 81 mg tablet,delayed 81 mg PO DAILY 10/09/21 10/09/21 History release ketoconazole 2 % topical cream 1 applic TOPICAL BID PRN 10/09/21 10/09/21 History simvastatin 20 mg tablet 20 mg PO QPM 10/09/21 10/09/21 History Past Med/Surg History Medical History BPH (benign prostatic hyperplasia) Diabetes mellitus GERD (gastroesophageal reflux disease) Hematuria History of paroxysmal supraventricular tachycardia History of renal calculi HTN (hypertension), benign Hyperlipidemia Hypothyroidism (acquired) Polymyalgia rheumatica Prostate cancer Vitamin D deficiency Voiding dysfunction Surgical History H/O prostate biopsy (~2000) History of prior ablation treatment (07/2013) History of prostatectomy (1999) History of total knee arthroplasty (~2012) Bilateral S/P cataract surgery 01/28/2018; 02/11/2018 S/P trigger finger release (~10/2016) Right hand Family History Brother Prostate cancer Denies family history of Ovarian cancer Myocardial infarction Breast cancer Colorectal cancer Social History Smoking Status: Never smoker Second Hand Exposure: No; Do You Dip or Chew Tobacco: No; Tobacco Cessation Education Requested by Patient: No Hx Alcohol Use: No Hx Substance Use: No Preferred Language: [place]itanian Communication Ability: Effective Visual Impairment: No Limitations Hearing Ability: Normal Weight Loss Consultant Required: No Beliefs That Will Affect Care: None marital status: Current Living Situation: Significant Other current occupational status: retired Other Information That Helps Us Care for You: No Feels Safe at Home: Yes caffeine: Yes during the past year weight has: remained stable Dental Care, Regularly: Yes Physical Activity Frequency: Daily Physical Activity Frequency Comment: walking/ymca Seatbelt Use: always Sunscreen Use: Yes Assistive Devices: Glasses Review of Systems Review of Systems: All systems reviewed & are unremarkable except as noted in HPI & below Physical Exam Physical Exam: General: patient resting comfortably, NAD, non-toxic in appearance, AA&O x 4 Skin: warm, dry, intact, no rashes or lesions HEENT: NC/AT, PERRL, EOMI, anicteric sclera, conjunctiva without injection, external ear normal to inspection and nontender, nares patent, moist mucus membranes, dentition intact, no oropharyngeal lesions, neck supple, trachea midline, no LAD, no thyromegaly, no JVD Heart: +S1/S2, regular, no m/r/g Lungs: equal air entry bilaterally, no rales/rhonchi/wheezes Abd: +BS, soft, NT/ND, no masses/organomegaly/ascites Ext: warm, 2+ pulses in UE/LE bilaterally, no clubbing/cyanosis or edema Neuro: nonfocal, patient AA&O x 4, speech intact, no facial droop, moving all extremities on command with equal strength 5/5 Results & Data Results & Data ([facility]) Vital Signs (Past 12 Hours) Vital Signs Temp Pulse Pulse Resp BP BP Pulse Ox 10/09/21 23:10 36.5 C 79 18 110/68 93 10/09/21 22:52 36.6 C 81 18 114/67 93 10/09/21 22:25 80 15 99/58 L 95 10/09/21 22:15 36.6 C 82 17 103/60 96 10/09/21 22:05 81 14 106/60 94 10/09/21 21:55 81 18 100/62 96 10/09/21 21:45 82 17 102/66 96 10/09/21 21:37 36.7 C 93 H 15 97/58 L 95 10/09/21 20:57 88 17 96 10/09/21 19:25 94 H 18 106/66 96 10/09/21 15:25 37.6 C H 112 H 20 144/77 H 95 Laboratory Results Laboratory Results WBC 23.73 K/uL (4.8-10.8) H 10/09/21 17:26 RBC 4.75 M/uL (4.7-6.1) 10/09/21 17:26 Hgb 15.2 g/dL (14.0-18.0) 10/09/21 17:26 Hct 44.7 % (42-52) 10/09/21 17:26 MCV 94.1 fL (80-100) 10/09/21 17:26 MCH 32.0 pg (25-34) 10/09/21 17:26 MCHC 34.0 g/dL (32-36) 10/09/21 17:26 RDW Std Deviation 45.8 fL (36.4-46.3) 10/09/21 17: RDW Coeff of Orly 13.2 % (11.5-14.5) 10/09/21 17: Plt Count 240 K/uL (130-400) 10/09/21 17: MPV 10.1 fL (7.4-10.4) 10/09/21 17: Immature Gran % (Auto) 0.5 % 10/09/21 17: Neut % (Auto) 87.3 % 10/09/21 17: Lymph % (Auto) 4.6 % 10/09/21 17: [place] % (Auto) 7.4 % 10/09/21 17:26 Eos % (Auto) 0.0 % 10/09/21 17:26 Baso % (Auto) 0.2 % 10/09/21: Neut # (Auto) 20.72 K/uL (1.4-6.5) H 10/09/21 17: Lymph # (Auto) 1.09 K/uL (1.2-3.4) L 10/09/21 17: [place] # (Auto) 1.76 K/uL (0.11-0.59) H 10/09/21 17:26 Eos # (Auto) 0.00 K/uL (0-0.5) 10/09/21 17: Baso # (Auto) 0.04 K/uL (0-0.2) 10/09/21 17: Immature Gran # (Auto) 0.12 K/uL (0.00-0.02) H 10/09/21 17: PT 10.9 Seconds (9.0-12.0) 10/09/21 17: INR 1.1 (0.9-1.1) 10/09/21 17: APTT 27.8 Seconds (21.0-31.0) 10/09/21 17: PTT Ratio 1.1 10/09/21 17: Sodium 134 mmol/L (136-145) L 10/09/21 17: Potassium 4.3 mmol/L (3.5-5.1) 10/09/21 17: Chloride 95 mmol/L (98-107) L 10/09/21 17: Carbon Dioxide 26 mmol/L (21-32) 10/09/21 17: Anion Gap 13 (3-11) H 10/09/21 17:26 BUN 35 mg/dl (6-23) H 10/09/21 17:26 Creatinine 1.64 mg/dl (0.6-1.4) H 10/09/21 17:26 Est Cr Clr Drug Dosing Not Reportable 10/09/21 17:26 Est GFR ( Amer) 45.1 ml/min 10/09/21 17:26 Est GFR (Non-Af Amer) 38.9 ml/min 10/09/21 17:26 BUN/Creatinine Ratio 21.3 (10-20) H 10/09/21 17:26 Glucose 283 mg/dl (70-99(Fasting)) H 10/09/21 17:26 POC Glucose 251 mg/dl (70-99) H 10/09/21 23:32 Lactate 3.0 mmol/L (0.4-2.0) H* 10/09/21 20:27 Calcium 10.0 mg/dl (8.5-10.1) 10/09/21 17:26 Magnesium 1.5 mg/dl (1.7-2.4) L 10/09/21 17:26 Total Bilirubin 1.0 mg/dl (0.2-1.0) 10/09/21 17:26 AST 42 U/L (13-39) H 10/09/21 17:26 ALT 64 U/L (7-52) H 10/09/21 17:26 Alkaline Phosphatase 87 U/L (34-104) 10/09/21 17:26 Troponin I 0.10 ng/ml (0-0.04) H* 10/09/21 20:27 Total Protein 7.4 gm/dl (6.0-8.3) 10/09/21 17:26 Albumin 4.1 gm/dl (3.4-5.0) 10/09/21 17:26 Globulin 3.3 gm/dl (2.5-4.0) 10/09/21 17: Albumin/Globulin Ratio 1.2 (0.9-2) 10/09/21 17:26 Urine Color Yellow 10/09/21 19:26 Urine Appearance Turbid (Clear) A 10/09/21 19:26 Urine pH 5.0 (4.5-7.5) 10/09/21 19:26 Ur Specific [place] >= 1.030 (1.000-1.030) 10/09/21 19:26 Urine Protein 2+ (Negative) H 10/09/21 19:26 Urine Glucose (UA) Negative (Negative) 10/09/21 19:26 Urine Ketones Trace (Negative) H 10/09/21 19:26 Urine Blood 3+ (Negative) H 10/09/21 19:26 Urine Nitrite Negative (Negative) 10/09/21 19: Urine Bilirubin 1+ (Negative) H 10/09/21 19:26 Urine Urobilinogen Negative (Negative) 10/09/21 19:26 Ur Leukocyte Esterase 3+ (Negative) H 10/09/21 19: Urine RBC >30 /hpf (0-4) H 10/09/21 19: Urine WBC >30 /hpf (0-5) H 10/09/21 19:26 Ur Epithelial Cells 5-10 /lpf (0-5) H 10/09/21 19:26 Urine Bacteria 1+ (Negative) H 10/09/21 19:26 SARS-CoV-2, RNA, NAAT NEGATIVE (NEGATIVE) 10/09/21 19:49 Impressions Humerus X-Ray 10/09/21 15:28 XR humerus LT 2V CLINICAL HISTORY: Left arm pain, fall TECHNIQUE: 2 radiographic views of the left humerus were obtained. Comparison: None available at the time of this dictation. FINDINGS: There is no evidence for fracture, subluxation or dislocation. There is normal anatomic alignment of the bones. The visualized portion of the shoulder and elbow joints are unremarkable. There is normal bone mineralization. The soft tissues are unremarkable. IMPRESSION: No acute osseous injury ACT 112: Negative or not required by law. Electronically signed by: Renny Del Castillo M.D. 10/09/2021 5:40 PM Chest X-Ray 10/09/21 15:30 XR chest 1V portable CLINICAL HISTORY: Weakness TECHNIQUE: Single frontal radiograph of the chest was obtained. Comparison: Comparison is made to chest one view 03/12/2020 FINDINGS: No lines and tubes are seen. The cardiomediastinal silhouette is normal. Lungs are underinflated but clear. No evidence of pleural effusion or pneumothorax. IMPRESSION: No acute chest disease. ACT 112: Negative or not required by law. Electronically signed by: Renny Del Castillo M.D. 10/09/2021 5:39 PM Abdomen/Pelvis CT 10/09/21 17:09 CT abd pelvis IV con only CLINICAL HISTORY: fall, back pain, hematuria TECHNIQUE: Helical axial images of the abdomen and pelvis were obtained and displayed. Automated dose lowering techniques and/or adjustment according to patient size were utilized for this exam. This exam was performed with intravenous contrast. COMPARISON: Comparison is made to CT abdomen pelvis 06/28/2008 FINDINGS: Lower chest: Bibasilar atelectasis versus scarring is seen. Liver: Unremarkable. No focal lesions are seen. Gallbladder and biliary tree: No calcified gallstones. Normal caliber wall. No intra- or extrahepatic biliary ductal dilation. Pancreas: Unremarkable, no focal lesions. Spleen: Unremarkable. Adrenals: Unremarkable. Kidneys and ureters: There is an obstructive stone in the proximal left ureter measuring 7 mm in diameter with resulting hydronephrosis. Nonobstructive stones are also seen bilaterally. Bladder: Limited evaluation due to underdistention. Reproductive organs: Unremarkable. Bowel: Diverticulosis is seen without evidence of diverticulitis. Lymph nodes Retroperitoneal: Unremarkable. Mesenteric: Unremarkable. Pelvic: Unremarkable. Peritoneum: Normal. Vessels: Unremarkable. Abdominal wall: Unremarkable. Bones: Degenerative changes in the visualized spine. IMPRESSION: Obstructive nephrolithiasis on the left with resultant hydronephrosis. ACT 112: Negative or not required by law. Electronically signed by: Renny Del Castillo M.D. 10/09/2021 7:[address] 10/09/21 19:03 CT cervical spine wo con CLINICAL HISTORY: fall TECHNIQUE: Multidetector row helical CT of the cervical spine was performed without administration of intravenous contrast. Coronal and sagittal reformations were obtained. Automated dose lowering techniques and/or adjustment according to patient size were utilized for this exam. Comparison: None available at the time of this dictation. FINDINGS: No acute fractures or subluxations are identified. Degenerative changes are seen in the visualized spine. The alignment is normal. Soft tissues are unremarkable. IMPRESSION: No evidence of acute bony injury. ACT 112: Negative or not required by law. Electronically signed by: Renny Del Castillo M.D. 10/09/2021 7:[address] 10/09/21 19:03 CT head/brain wo con CLINICAL HISTORY: fall Technique: Contiguous axial CT images of the head were acquired from the base of the skull to the vertex without intravenous contrast administration. Images were viewed in brain, subdural and bone windows. Automated dose lowering techniques and/or adjustment according to patient size were utilized for this exam. Comparison: Comparison is made to CT head 03/12/2020 Findings: The ventricles, basal cisterns, and cerebral sulci are normal. There is no acute intracranial hemorrhage or evidence of acute territorial infarction. Neither mass effect, shift of the midline structures, nor abnormal extra-axial fluid collections are shown. Imaged portions of the paranasal sinuses and mastoid air cells are clear. The orbits appear normal. There are no acute fractures of the calvaria or scalp swelling. Impression: No acute intracranial hemorrhage, no evidence of acute territorial infarction or other acute intracranial disease process. ACT 112: Negative or not required by law. Electronically signed by: Renny Del Castillo M.D. 10/09/2021 7:45 PM ECG Additional Comments: EKG with SR at 100bpm, 1st degree AV block with GE=376, QRS=88, LHf=236, no acute ischemic changes Code Status & VTE Plan VTE Prophylaxis Plan VTE Prophylaxis will be ordered: Yes PG Care Time/CCT Total # of Minutes Spent Total Time Spent with Patient: Total time spent is greater than 50% in coordination of care (as documented) at patient's floor/unit and/or counseling patient: Coding Level of Care Code 52245 Initial Inpt Care Lvl 3 Diagnoses Sepsis A41.9 Sepsis acute organ dysfunction status: unspecified Sepsis type: sepsis due to unspecified organism Nephrolithiasis N20.0 GERD (gastroesophageal reflux disease) K21.9 Polymyalgia rheumatica M35.3 Hypothyroidism (acquired) E03.9 Hyperlipidemia E78.5 HTN (hypertension), benign I10 Diabetes mellitus E11.9 LEE (acute kidney injury) N17.9 Elevated troponin R77.8 Elevated lactic acid level R79.89 (1) Sepsis Sepsis acute organ dysfunction status: unspecified Sepsis type: sepsis due to unspecified organism Qualified Code(s): A41.9 - Sepsis, unspecified organism
[2021-10-10] MEDS ORDERED: INSULIN ASPART PER UNIT SC STA (01:54)
[2021-10-10] MEDS: ACETAMINOPHEN 325 MG TAB PO PRN (02:23)
[2021-10-10] MEDS: LEVOTHYROXINE SODIUM 112 MCG TABLET PO SCH (05:59)
[2021-10-10 08:20] LABS: Hematocrit (blood only) 39.1 % (42-52); Mean Corpuscular Hgb Conc 33.2 g/dL (32-36); Mean Corpuscular Volume 93.1 fL (80-100); Mean Platelet Volume 9.8 fL (7.4-10.4); Platelet Count 204 K/uL (130-400); RDW Coefficient of Variation 13.3 % (11.5-14.5); RDW Standard Deviation 45.4 fL (36.4-46.3); White Blood Count 19.01 K/uL (4.8-10.8)
--- NOTE | 2021-10-10 08:31 | Urology Progress Note ---
Date of Service October 10, 2021 Assessment & Plan (1) Sepsis: (2) Left ureteral calculus: (3) Acute UTI: Plan: 80yo M admitted with concerns of sepsis from urinary source in the setting of an obstructingureteral stone - POD #1 s/p Cystoscopy, left retrograde pyelogram with radiographic interpretation, left ureteral stent placement, Bloom catheter placement with Dr. Grayson. - Overall feeling well post procedure. - Tolerating the ureteral stent with minimal bother. - Remains afebrile - Labs reviewed - White count downtrending, Creatinine 1.67 today, previously 1.64 --Continue to trend - Urine and blood cultures pending - Continues on IV Ceftriaxone, follow cultures - OK to remove Bloom catheter this morning and monitor for ability to void. Bladder scan as needed. - Continue supportive care, antibiotic therapy, and management per primary team - Plan to D/C when medically stable per primary team with course of appropriate PO antibiotics for UTI - Recommend Tamsulosin, prn Pyridium and prn pain medication for stent management. - Will arrange outpatient follow-up with our service for definitive stone treatment. - Expected clinical course reviewed with patient, all questions answered. - will sign-off, please contact us with any further questions, concerns, or changes in patient status. Admission and Anticipated Discharge Date Admission Date: October 09, 2021 Subjective Pt examined at bedside this AM. Awake, resting in bed on arrival. No acute distress. Overall feeling well. Denies any pain or discomfort at present. No fevers or chills. Tolerating diet, no nausea or vomiting. Bloom catheter intact, draining yellow urine. Denies dysuria. No additional complaints at this time. Review of Systems Constitutional: as per Subjective / HPI Gastrointestinal: as per Subjective / HPI Genitourinary: + as per Subjective / HPI Physical Exam Constitutional: well developed and well nourished; no acute distress and not ill appearing Respiratory: normal respiratory effort and able to speak in complete sentences; no labored breathing and no audible wheezes Gastrointestinal (Abdomen): Inspection/Auscultation: abdomen normal to inspection; abdomen not distended Percussion/Palpation: abdomen soft; abdomen nontender and no guarding Musculoskeletal: Head/Neck/Chest: normocephalic Skin: No visible rashes or lesions to exposed skin areas Neurologic: awake Psychiatric: Orientation: alert, oriented x 3 and cooperative Genitourinary: Bloom catheter intact, draining yellow urine Results & Data ([facility]) Vital Signs (Past 12 Hours) Vital Signs Temp Pulse Pulse Pulse Resp BP Pulse Ox 10/10/21 07:43 95 H 10/10/21 07:24 37.1 C 95 H 20 94/54 L 91 10/10/21 05:36 79 10/10/21 03:02 37.0 C 116 H 20 148/66 H 90 10/10/21 01:08 36.7 C 83 20 171/64 H 95 10/10/21 00:31 36.4 C L 82 20 127/55 L 95 10/09/21 23:55 36.3 C L 77 18 131/76 96 10/09/21 23:10 36.5 C 79 18 110/68 93 10/09/21 22:52 36.6 C 81 18 114/67 93 10/09/21 22:25 80 15 99/58 L 95 10/09/21 22:15 36.6 C 82 17 103/60 96 10/09/21 22:05 81 14 106/60 94 10/09/21 21:55 81 18 100/62 96 10/09/21 21:45 82 17 102/66 96 10/09/21 21:37 36.7 C 93 H 15 97/58 L 95 10/09/21 20:57 88 17 96 PG Care Time/CCT Total # of Minutes Spent Total Time Spent with Patient: Total time spent is greater than 50% in coordination of care (as documented) at patient's floor/unit and/or counseling patient: Coding Level of Care Code 74589 Subseq Hosp Care Lvl 2 Diagnoses Sepsis A41.9 Sepsis acute organ dysfunction status: unspecified Sepsis type: sepsis due to unspecified organism Acute UTI N39.0 Left ureteral calculus N20.1 (1) Sepsis Sepsis acute organ dysfunction status: unspecified Sepsis type: sepsis due to unspecified organism Qualified Code(s): A41.9 - Sepsis, unspecified organism
[2021-10-10 08:34] LABS: Troponin I 0.1 ng/ml (0-0.04)
[2021-10-10 08:44] LABS: Basophils # (auto) 0.02 K/uL (0-0.2); Basophils % (auto) 0.1 %; Eosinophils # (auto) 0.01 K/uL (0-0.5); Eosinophils % (auto) 0.1 %; Immature Granulocytes # (auto) 0.06 K/uL (0.00-0.02); Immature Granulocytes % (auto) 0.3 %; Lymphocytes # (auto) 0.93 K/uL (1.2-3.4); Lymphocytes % (auto) 4.9 %; Monocytes # (auto) 1.57 K/uL (0.11-0.59); Monocytes % (auto) 8.3 %; Neutrophils # (auto) 16.42 K/uL (1.4-6.5); Neutrophils % (auto) 86.3 %
[2021-10-10] MEDS: INSULIN GLARGINE SOLOSTAR 100 UNITS/ML 3 ML PEN SC SCH ×2 (08:45→21:21)
[2021-10-10] MEDS: INSULIN ASPART PER UNIT SC SCH ×4 (08:45→21:21)
[2021-10-10] MEDS: amLODIPine BESYLATE 5 MG TAB PO SCH (08:45)
[2021-10-10] MEDS: PANTOprazole 40 MG TAB PO SCH (08:46)
[2021-10-10] MEDS: TAMSULOSIN HCL 0.4 MG CAP PO SCH (08:46)
[2021-10-10] MEDS: ASPIRIN 81 MG ECTAB PO SCH (08:46)
[2021-10-10 09:01] LABS: Albumin Level 3.4 gm/dl (3.4-5.0); BUN Creatinine Ratio 22.2 (10-20); Bilirubin,Total 0.9 mg/dl (0.2-1.0); Calcium 9.2 mg/dl (8.5-10.1); Creatinine Clr Calc Pharmacy 38.6 ml/min; Est GFR (African American) 44.1 ml/min; Est GFR (Non-African American) 38.1 ml/min; Total Protein 6.4 gm/dl (6.0-8.3)
[2021-10-10] MEDS: LACTATED RINGER'S 1,000 ML IV SCH (11:55)
--- NOTE | 2021-10-10 12:32 | Fluoroscopy Report ---
FL retrograde includes kub CLINICAL HISTORY: LT CYSTO STENT COMPARISON STUDY: CT of the abdomen and pelvis from 10/09/2021 FLUOROSCOPY TIME: 14 second. FLUOROSCOPIC IMAGES: 4 FINDINGS: The distal ureter was cannulated and contrast was injected in a retrograde manner filling t he ureter and intrarenal collecting systems. Double-J ureteral stent was placed. IMPRESSION: Status post left retrograde urethrogram and stent placement. ACT 112: Negative or not required by law. Electronically signed by: Braulio Molina M.D. 10/10/2021 12:30 PM
--- NOTE | 2021-10-10 16:08 | Hospitalist Progress Note ---
Date of Service October 10, 2021 Assessment & Plan (1) Septicemia: Plan: Patient meets sepsis criteria on arrival with 2/4 SIRS criteria (OF=202, WBC=23.73), (qSOFA=0) source UTI and bacteremia. Found with obstructing left nephrolithiasis with hydronephrosis, UA suggestive of infection with bacteria present. Patient taken urgently to the OR for cystoscopy, stent placement. Afebrile, HD stable at present Prior urine culture from 07/17/21 - pansensitive E. coli BCxs here and Ur cx all growing GNRs-await ID and sensitivities -continue IVFs maintenance at 80mL/hr -Continue Ceftriaxone 2gm IV daily -Flomax 0.4mg daily -Ditropan 5mg po BID PRN discomfort -Appreciate Urology assistance -follow all cultures, will need 10-14 days abx but can be po in GN bacteremia (2) Nephrolithiasis: Plan: As above, patient with 7mm obstructing stone with hydronephrosis s/p removal with stent placement -Ceftriaxone 2gm IV daily -Flomax and Ditropan as needed -Bloom catheter now removed -will need stone management as outpt (3) LEE (acute kidney injury): Plan: Elevation of BUN and Cr to 35 and 1.64, respectively. 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 Patient hemodynamically stable, BP presently 131/76 -LR as below (5) Elevated troponin: Plan: Patient with troponin of 0.1/0.1/0.06. Denies chest pain. No acute ischemic changes on EKG. Suspect Type II in setting of sepsis, renal compromise -Continue ASA (6) Diabetes mellitus: Plan: He is on metformin and glipizide. Last [id number]=8.6 on 07/11/21 -continues ot have hyperglycemia here from sepsis, stress -Hold oral agents -increase Lantus to 8u BID -ISS- tighten down CF and CR -Goal blood sugar 100 - 140 (7) GERD (gastroesophageal reflux disease): Plan: Chronic. Stable on medication -Continue Protonix 40mg po daily (8) Polymyalgia rheumatica: Plan: Noted. No medications currently -Monitor (9) Hypothyroidism (acquired): Plan: Chronic. Stable on medication. TSH within normal rante at 1.66 on 07/11/21 -Continue Synthroid 112mcg po daily (10) Hyperlipidemia: Plan: Chronic. On statin -Continue Simvastatin 20mg po qPM (11) HTN (hypertension), benign: Plan: Blood pressure stable -Holding antihypertensives for now -On Amlodipine 5mg po daily, HCTZ 12.5mg po daily -Losartan 25mg po daily - on hold Plan: Ppx - SCDs to bilateral LE Code - Full per discussion with patient Dispo - downgrade to med/surg, continued stay likely for 1-2 more days Admission and Anticipated Discharge Date Admission Date: October 09, 2021 Subjective Pt feeling very well now. No more abdominal ir flank pain. Denies CP, SOB, nausea. Is making urine and voiding since Bloom removed. Moved bowels twice today. Tele with NSR, normal rates Review of Systems Review of Systems: All systems reviewed & are unremarkable except as noted in HPI & below Physical Exam Constitutional: WD/WN, vitals as above Eyes: + anicteric sclerae Neck: trachea midline, no thyromegaly Respiratory: normal respiratory effort, lungs clear to auscultation Cardiovascular: RRR, no murmur, no edema Chest (Breasts): Chest: normal inspection of chest Gastrointestinal (Abdomen): normal bowel sounds, soft, nontender, no hepatosplenomegaly Musculoskeletal: Extremities: extremities normal to inspection; no cyanosis and no clubbing Skin: no rashes, warm and dry Neurologic: moves all extremities and awake; no focal motor deficits Psychiatric: A+Ox3, euthymic affect Lymphatic: no lymphedema Results & Data Results & Data ([facility]) Vital Signs (Past 12 Hours) Vital Signs Temp Pulse Pulse Resp BP Pulse Ox 10/10/21 15:27 36.9 C 85 18 120/70 95 10/10/21 15:12 83 10/10/21 11:27 36.7 C 85 16 100/66 92 10/10/21 07:43 95 H 10/10/21 07:24 37.1 C 95 H 20 94/54 L 91 10/10/21 05:36 79 Laboratory Results 10/10/21 10/10/21 10/10/21 Range/Units 12:58 11:31 07:50 WBC (4.8-10.8) K/uL RBC (4.7-6.1) M/uL Hgb (14.0-18.0) g/dL Hct (42-52) % MCV (80-100) fL MCH (25-34) pg MCHC (32-36) g/dL RDW Std Deviation (36.4-46.3) fL RDW Coeff of Orly (11.5-14.5) % Plt Count (130-400) K/uL MPV (7.4-10.4) fL Immature Gran % (Auto) % Neut % (Auto) % Lymph % (Auto) % Logan % (Auto) % Eos % (Auto) % Baso % (Auto) % Neut # (Auto) (1.4-6.5) K/uL Lymph # (Auto) (1.2-3.4) K/uL Logan # (Auto) (0.11-0.59) K/uL Eos # (Auto) (0-0.5) K/uL Baso # (Auto) (0-0.2) K/uL Immature Gran # (Auto) (0.00-0.02) K/uL PT (9.0-12.0) Seconds INR (0.9-1.1) APTT (21.0-31.0) Seconds PTT Ratio Sodium 132 L (136-145) mmol/L Potassium (3.5-5.1) mmol/L Chloride 98 (98-107) mmol/L Carbon Dioxide 26 (21-32) mmol/L Anion Gap 8 (3-11) BUN 37 H (6-23) mg/dl Creatinine 1.67 H (0.6-1.4) mg/dl Est Cr Clr Drug Dosing 38.6 Est GFR ( Amer) 44.1 ml/min Est GFR (Non-Af Amer) 38.1 ml/min BUN/Creatinine Ratio 22.2 H (10-20) Glucose 235 H (70-99(Fasting)) mg/dl POC Glucose 293 H (70-99) mg/dl Lactate (0.4-2.0) mmol/L Calcium 9.2 (8.5-10.1) mg/dl Magnesium (1.7-2.4) mg/dl Total Bilirubin 0.9 (0.2-1.0) mg/dl Direct Bilirubin (0-0.2) mg/dl AST (13-39) U/L ALT 47 (7-52) U/L Alkaline Phosphatase 68 (34-104) U/L Troponin I 0.06 H* 0.10 H* (0-0.04) ng/ml Total Protein 6.4 (6.0-8.3) gm/dl Albumin 3.4 (3.4-5.0) gm/dl Globulin (2.5-4.0) gm/dl Albumin/Globulin Ratio (0.9-2) Urine Color Urine Appearance (Clear) Urine pH (4.5-7.5) Ur Specific Clanton (1.000-1.030) Urine Protein (Negative) Urine Glucose (UA) (Negative) Urine Ketones (Negative) Urine Blood (Negative) Urine Nitrite (Negative) Urine Bilirubin (Negative) Urine Urobilinogen (Negative) Ur Leukocyte Esterase (Negative) Urine RBC (0-4) /hpf Urine WBC (0-5) /hpf Ur Epithelial Cells (0-5) /lpf Urine Bacteria (Negative) SARS-CoV-2, RNA, NAAT (NEGATIVE) 10/10/21 10/10/21 10/10/21 Range/Units 07:50 07:38 01:14 WBC 19.01 H (4.8-10.8) K/uL RBC 4.20 L (4.7-6.1) M/uL Hgb 13.0 L (14.0-18.0) g/dL Hct 39.1 L (42-52) % MCV 93.1 (80-100) fL MCH 31.0 (25-34) pg MCHC 33.2 (32-36) g/dL RDW Std Deviation 45.4 (36.4-46.3) fL RDW Coeff of Orly 13.3 (11.5-14.5) % Plt Count 204 (130-400) K/uL MPV 9.8 (7.4-10.4) fL Immature Gran % (Auto) 0.3 % Neut % (Auto) 86.3 % Lymph % (Auto) 4.9 % Logan % (Auto) 8.3 % Eos % (Auto) 0.1 % Baso % (Auto) 0.1 % Neut # (Auto) 16.42 H (1.4-6.5) K/uL Lymph # (Auto) 0.93 L (1.2-3.4) K/uL Logan # (Auto) 1.57 H (0.11-0.59) K/uL Eos # (Auto) 0.01 (0-0.5) K/uL Baso # (Auto) 0.02 (0-0.2) K/uL Immature Gran # (Auto) 0.06 H (0.00-0.02) K/uL PT (9.0-12.0) Seconds INR (0.9-1.1) APTT (21.0-31.0) Seconds PTT Ratio Sodium (136-145) mmol/L Potassium (3.5-5.1) mmol/L Chloride (98-107) mmol/L Carbon Dioxide (21-32) mmol/L Anion Gap (3-11) BUN (6-23) mg/dl Creatinine (0.6-1.4) mg/dl Est Cr Clr Drug Dosing Est GFR ( Amer) ml/min Est GFR (Non-Af Amer) ml/min BUN/Creatinine Ratio (10-20) Glucose (70-99(Fasting)) mg/dl POC Glucose 204 H 241 H (70-99) mg/dl Lactate (0.4-2.0) mmol/L Calcium (8.5-10.1) mg/dl Magnesium (1.7-2.4) mg/dl Total Bilirubin (0.2-1.0) mg/dl Direct Bilirubin (0-0.2) mg/dl AST (13-39) U/L ALT (7-52) U/L Alkaline Phosphatase (34-104) U/L Troponin I (0-0.04) ng/ml Total Protein (6.0-8.3) gm/dl Albumin (3.4-5.0) gm/dl Globulin (2.5-4.0) gm/dl Albumin/Globulin Ratio (0.9-2) Urine Color Urine Appearance (Clear) Urine pH (4.5-7.5) Ur Specific [place] (1.000-1.030) Urine Protein (Negative) Urine Glucose (UA) (Negative) Urine Ketones (Negative) Urine Blood (Negative) Urine Nitrite (Negative) Urine Bilirubin (Negative) Urine Urobilinogen (Negative) Ur Leukocyte Esterase (Negative) Urine RBC (0-4) /hpf Urine WBC (0-5) /hpf Ur Epithelial Cells (0-5) /lpf Urine Bacteria (Negative) SARS-CoV-2, RNA, NAAT (NEGATIVE) 10/09/21 10/09/21 10/09/21 Range/Units 23:46 23:32 21:40 WBC (4.8-10.8) K/uL RBC (4.7-6.1) M/uL Hgb (14.0-18.0) g/dL Hct (42-52) % MCV (80-100) fL MCH (25-34) pg MCHC (32-36) g/dL RDW Std Deviation (36.4-46.3) fL RDW Coeff of Orly (11.5-14.5) % Plt Count (130-400) K/uL MPV (7.4-10.4) fL Immature Gran % (Auto) % Neut % (Auto) % Lymph % (Auto) % Logan % (Auto) % Eos % (Auto) % Baso % (Auto) % Neut # (Auto) (1.4-6.5) K/uL Lymph # (Auto) (1.2-3.4) K/uL Logan # (Auto) (0.11-0.59) K/uL Eos # (Auto) (0-0.5) K/uL Baso # (Auto) (0-0.2) K/uL Immature Gran # (Auto) (0.00-0.02) K/uL PT (9.0-12.0) Seconds INR (0.9-1.1) APTT (21.0-31.0) Seconds PTT Ratio Sodium (136-145) mmol/L Potassium (3.5-5.1) mmol/L Chloride (98-107) mmol/L Carbon Dioxide (21-32) mmol/L Anion Gap (3-11) BUN (6-23) mg/dl Creatinine (0.6-1.4) mg/dl Est Cr Clr Drug Dosing Est GFR ( Amer) ml/min Est GFR (Non-Af Amer) ml/min BUN/Creatinine Ratio (10-20) Glucose (70-99(Fasting)) mg/dl POC Glucose 251 H 255 H (70-99) mg/dl Lactate 2.5 H* (0.4-2.0) mmol/L Calcium (8.5-10.1) mg/dl Magnesium (1.7-2.4) mg/dl Total Bilirubin (0.2-1.0) mg/dl Direct Bilirubin (0-0.2) mg/dl AST (13-39) U/L ALT (7-52) U/L Alkaline Phosphatase (34-104) U/L Troponin I (0-0.04) ng/ml Total Protein (6.0-8.3) gm/dl Albumin (3.4-5.0) gm/dl Globulin (2.5-4.0) gm/dl Albumin/Globulin Ratio (0.9-2) Urine Color Urine Appearance (Clear) Urine pH (4.5-7.5) Ur Specific [place] (1.000-1.030) Urine Protein (Negative) Urine Glucose (UA) (Negative) Urine Ketones (Negative) Urine Blood (Negative) Urine Nitrite (Negative) Urine Bilirubin (Negative) Urine Urobilinogen (Negative) Ur Leukocyte Esterase (Negative) Urine RBC (0-4) /hpf Urine WBC (0-5) /hpf Ur Epithelial Cells (0-5) /lpf Urine Bacteria (Negative) SARS-CoV-2, RNA, NAAT (NEGATIVE) 10/09/21 10/09/21 10/09/21 Range/Units 20:27 20:27 19:49 WBC (4.8-10.8) K/uL RBC (4.7-6.1) M/uL Hgb (14.0-18.0) g/dL Hct (42-52) % MCV (80-100) fL MCH (25-34) pg MCHC (32-36) g/dL RDW Std Deviation (36.4-46.3) fL RDW Coeff of Orly (11.5-14.5) % Plt Count (130-400) K/uL MPV (7.4-10.4) fL Immature Gran % (Auto) % Neut % (Auto) % Lymph % (Auto) % Logan % (Auto) % Eos % (Auto) % Baso % (Auto) % Neut # (Auto) (1.4-6.5) K/uL Lymph # (Auto) (1.2-3.4) K/uL Logan # (Auto) (0.11-0.59) K/uL Eos # (Auto) (0-0.5) K/uL Baso # (Auto) (0-0.2) K/uL Immature Gran # (Auto) (0.00-0.02) K/uL PT (9.0-12.0) Seconds INR (0.9-1.1) APTT (21.0-31.0) Seconds PTT Ratio Sodium (136-145) mmol/L Potassium (3.5-5.1) mmol/L Chloride (98-107) mmol/L Carbon Dioxide (21-32) mmol/L Anion Gap (3-11) BUN (6-23) mg/dl Creatinine (0.6-1.4) mg/dl Est Cr Clr Drug Dosing Est GFR ( Amer) ml/min Est GFR (Non-Af Amer) ml/min BUN/Creatinine Ratio (10-20) Glucose (70-99(Fasting)) mg/dl POC Glucose (70-99) mg/dl Lactate 3.0 H* (0.4-2.0) mmol/L Calcium (8.5-10.1) mg/dl Magnesium (1.7-2.4) mg/dl Total Bilirubin (0.2-1.0) mg/dl Direct Bilirubin (0-0.2) mg/dl AST (13-39) U/L ALT (7-52) U/L Alkaline Phosphatase (34-104) U/L Troponin I 0.10 H* (0-0.04) ng/ml Total Protein (6.0-8.3) gm/dl Albumin (3.4-5.0) gm/dl Globulin (2.5-4.0) gm/dl Albumin/Globulin Ratio (0.9-2) Urine Color Urine Appearance (Clear) Urine pH (4.5-7.5) Ur Specific Cl[place] (1.000-1.030) Urine Protein (Negative) Urine Glucose (UA) (Negative) Urine Ketones (Negative) Urine Blood (Negative) Urine Nitrite (Negative) Urine Bilirubin (Negative) Urine Urobilinogen (Negative) Ur Leukocyte Esterase (Negative) Urine RBC (0-4) /hpf Urine WBC (0-5) /hpf Ur Epithelial Cells (0-5) /lpf Urine Bacteria (Negative) SARS-CoV-2, RNA, NAAT NEGATIVE (NEGATIVE) 10/09/21 10/09/21 10/09/21 Range/Units 19:26 17:26 17:26 WBC (4.8-10.8) K/uL RBC (4.7-6.1) M/uL Hgb (14.0-18.0) g/dL Hct (42-52) % MCV (80-100) fL MCH (25-34) pg MCHC (32-36) g/dL RDW Std Deviation (36.4-46.3) fL RDW Coeff of Orly (11.5-14.5) % Plt Count (130-400) K/uL MPV (7.4-10.4) fL Immature Gran % (Auto) % Neut % (Auto) % Lymph % (Auto) % Logan % (Auto) % Eos % (Auto) % Baso % (Auto) % Neut # (Auto) (1.4-6.5) K/uL Lymph # (Auto) (1.2-3.4) K/uL Logan # (Auto) (0.11-0.59) K/uL Eos # (Auto) (0-0.5) K/uL Baso # (Auto) (0-0.2) K/uL Immature Gran # (Auto) (0.00-0.02) K/uL PT 10.9 (9.0-12.0) Seconds INR 1.1 (0.9-1.1) APTT 27.8 (21.0-31.0) Seconds PTT Ratio 1.1 Sodium 134 L (136-145) mmol/L Potassium 4.3 (3.5-5.1) mmol/L Chloride 95 L (98-107) mmol/L Carbon Dioxide 26 (21-32) mmol/L Anion Gap 13 H (3-11) BUN 35 H (6-23) mg/dl Creatinine 1.64 H (0.6-1.4) mg/dl Est Cr Clr Drug Dosing Not Reportable Est GFR ( Amer) 45.1 ml/min Est GFR (Non-Af Amer) 38.9 ml/min BUN/Creatinine Ratio 21.3 H (10-20) Glucose 283 H (70-99(Fasting)) mg/dl POC Glucose (70-99) mg/dl Lactate (0.4-2.0) mmol/L Calcium 10.0 (8.5-10.1) mg/dl Magnesium 1.5 L (1.7-2.4) mg/dl Total Bilirubin 1.0 (0.2-1.0) mg/dl Direct Bilirubin (0-0.2) mg/dl AST 42 H (13-39) U/L ALT 64 H (7-52) U/L Alkaline Phosphatase 87 (34-104) U/L Troponin I (0-0.04) ng/ml Total Protein 7.4 (6.0-8.3) gm/dl Albumin 4.1 (3.4-5.0) gm/dl Globulin 3.3 (2.5-4.0) gm/dl Albumin/Globulin Ratio 1.2 (0.9-2) Urine Color Yellow Urine Appearance Turbid A (Clear) Urine pH 5.0 (4.5-7.5) Ur Specific Clanton >= 1.030 (1.000-1.030) Urine Protein 2+ H (Negative) Urine Glucose (UA) Negative (Negative) Urine Ketones Trace H (Negative) Urine Blood 3+ H (Negative) Urine Nitrite Negative (Negative) Urine Bilirubin 1+ H (Negative) Urine Urobilinogen Negative (Negative) Ur Leukocyte Esterase 3+ H (Negative) Urine RBC >30 H (0-4) /hpf Urine WBC >30 H (0-5) /hpf Ur Epithelial Cells 5-10 H (0-5) /lpf Urine Bacteria 1+ H (Negative) SARS-CoV-2, RNA, NAAT (NEGATIVE) 10/09/21 Range/Units 17:26 WBC 23.73 H (4.8-10.8) K/uL RBC 4.75 (4.7-6.1) M/uL Hgb 15.2 (14.0-18.0) g/dL Hct 44.7 (42-52) % MCV 94.1 (80-100) fL MCH 32.0 (25-34) pg MCHC 34.0 (32-36) g/dL RDW Std Deviation 45.8 (36.4-46.3) fL RDW Coeff of Orly 13.2 (11.5-14.5) % Plt Count 240 (130-400) K/uL MPV 10.1 (7.4-10.4) fL Immature Gran % (Auto) 0.5 % Neut % (Auto) 87.3 % Lymph % (Auto) 4.6 % Logan % (Auto) 7.4 % Eos % (Auto) 0.0 % Baso % (Auto) 0.2 % Neut # (Auto) 20.72 H (1.4-6.5) K/uL Lymph # (Auto) 1.09 L (1.2-3.4) K/uL Logan # (Auto) 1.76 H (0.11-0.59) K/uL Eos # (Auto) 0.00 (0-0.5) K/uL Baso # (Auto) 0.04 (0-0.2) K/uL Immature Gran # (Auto) 0.12 H (0.00-0.02) K/uL PT (9.0-12.0) Seconds INR (0.9-1.1) APTT (21.0-31.0) Seconds PTT Ratio Sodium (136-145) mmol/L Potassium (3.5-5.1) mmol/L Chloride (98-107) mmol/L Carbon Dioxide (21-32) mmol/L Anion Gap (3-11) BUN (6-23) mg/dl Creatinine (0.6-1.4) mg/dl Est Cr Clr Drug Dosing Est GFR ( Amer) ml/min Est GFR (Non-Af Amer) ml/min BUN/Creatinine Ratio (10-20) Glucose (70-99(Fasting)) mg/dl POC Glucose (70-99) mg/dl Lactate (0.4-2.0) mmol/L Calcium (8.5-10.1) mg/dl Magnesium (1.7-2.4) mg/dl Total Bilirubin (0.2-1.0) mg/dl Direct Bilirubin (0-0.2) mg/dl AST (13-39) U/L ALT (7-52) U/L Alkaline Phosphatase (34-104) U/L Troponin I (0-0.04) ng/ml Total Protein (6.0-8.3) gm/dl Albumin (3.4-5.0) gm/dl Globulin (2.5-4.0) gm/dl Albumin/Globulin Ratio (0.9-2) Urine Color Urine Appearance (Clear) Urine pH (4.5-7.5) Ur Specific [place] (1.000-1.030) Urine Protein (Negative) Urine Glucose (UA) (Negative) Urine Ketones (Negative) Urine Blood (Negative) Urine Nitrite (Negative) Urine Bilirubin (Negative) Urine Urobilinogen (Negative) Ur Leukocyte Esterase (Negative) Urine RBC (0-4) /hpf Urine WBC (0-5) /hpf Ur Epithelial Cells (0-5) /lpf Urine Bacteria (Negative) SARS-CoV-2, RNA, NAAT (NEGATIVE) PG Care Time/CCT Total # of Minutes Spent Total Time Spent with Patient: Total time spent is greater than 50% in coordination of care (as documented) at patient's floor/unit and/or counseling patient: Coding Level of Care Code 53721 Subseq Hosp Care Lvl 3 Diagnoses Nephrolithiasis N20.0 LEE (acute kidney injury) N17.9 Elevated lactic acid level R79.89 Elevated troponin R77.8 Diabetes mellitus E11.9 GERD (gastroesophageal reflux disease) K21.9 Polymyalgia rheumatica M35.3 Hypothyroidism (acquired) E03.9 Hyperlipidemia E78.5 HTN (hypertension), benign I10 Septicemia A41.9
[2021-10-10] MEDS: cefTRIAXone SODIUM 2,000 MG in DEXTROSE 5% 50 ML IV SCH (18:01)
[2021-10-10] MEDS: SIMVASTATIN 20 MG TAB PO SCH (21:23)
[2021-10-10] MEDS: MAGNESIUM OXIDE 400 MG TAB PO SCH (21:24)
[2021-10-11] MEDS: LEVOTHYROXINE SODIUM 112 MCG TABLET PO SCH (05:36)
--- NOTE | 2021-10-11 06:09 | Electrocardiogram Report ---
Test Reason : Blood Pressure : / mmHG Vent. 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
[2021-10-11 07:53] LABS: Basophils # (auto) 0.02 K/uL (0-0.2); Basophils % (auto) 0.2 %; Eosinophils # (auto) 0.12 K/uL (0-0.5); Eosinophils % (auto) 1.2 %; Hematocrit (blood only) 36.6 % (42-52); Hemoglobin 12.5 g/dL (14.0-18.0); Immature Granulocytes # (auto) 0.01 K/uL (0.00-0.02); Immature Granulocytes % (auto) 0.1 %; Lymphocytes # (auto) 0.84 K/uL (1.2-3.4); Lymphocytes % (auto) 8.6 %; Mean Corpuscular Hemoglobin 31.7 pg (25-34); Mean Corpuscular Hgb Conc 34.2 g/dL (32-36); Mean Corpuscular Volume 92.9 fL (80-100); Mean Platelet Volume 9.7 fL (7.4-10.4); Monocytes # (auto) 0.65 K/uL (0.11-0.59); Monocytes % (auto) 6.7 %; Neutrophils # (auto) 8.11 K/uL (1.4-6.5); Neutrophils % (auto) 83.2 %; Platelet Count 179 K/uL (130-400); RDW Coefficient of Variation 13.2 % (11.5-14.5); RDW Standard Deviation 45.1 fL (36.4-46.3); Red Blood Count 3.94 M/uL (4.7-6.1); White Blood Count 9.75 K/uL (4.8-10.8)
[2021-10-11 08:25] LABS: Albumin Globulin Ratio 1.1 (0.9-2); Albumin Level 3.3 gm/dl (3.4-5.0); BUN Creatinine Ratio 28.2 (10-20); Bilirubin,Total 0.7 mg/dl (0.2-1.0); Calcium 8.9 mg/dl (8.5-10.1); Creatinine Clr Calc Pharmacy 51.9 ml/min; Est GFR (African American) 63.2 ml/min; Est GFR (Non-African American) 54.6 ml/min; Potassium 3.4 mmol/L (3.5-5.1); Total Protein 6.3 gm/dl (6.0-8.3)
[2021-10-11] MEDS: amLODIPine BESYLATE 5 MG TAB PO SCH (08:48)
[2021-10-11] MEDS: MAGNESIUM OXIDE 400 MG TAB PO SCH ×2 (08:49→21:21)
[2021-10-11] MEDS: TAMSULOSIN HCL 0.4 MG CAP PO SCH (08:49)
[2021-10-11] MEDS: PANTOprazole 40 MG TAB PO SCH (08:49)
[2021-10-11] MEDS: ASPIRIN 81 MG ECTAB PO SCH (08:49)
[2021-10-11] MEDS: ASCORBIC ACID 500 MG TAB PO SCH (08:49)
[2021-10-11] MEDS: FOLIC ACID 400 MCG TAB PO SCH (08:49)
[2021-10-11] MEDS: INSULIN GLARGINE SOLOSTAR 100 UNITS/ML 3 ML PEN SC SCH ×2 (08:51→21:23)
[2021-10-11] MEDS: INSULIN ASPART PER UNIT SC SCH ×4 (08:51→21:34)
[2021-10-11] MEDS ORDERED: POTASSIUM CHLORIDE CRTAB 20 MEQ TABCR PO STA (09:13)
[2021-10-11] MEDS: ACETAMINOPHEN 325 MG TAB PO PRN (15:59)
[2021-10-11] MEDS ORDERED: INSULIN GLARGINE SOLOSTAR 100 UNITS/ML 3 ML PEN SC ONE (16:16)
--- NOTE | 2021-10-11 16:31 | Hospitalist Progress Note ---
Date of Service October 11, 2021 Assessment & Plan (1) Septicemia: Plan: Patient meets sepsis criteria on arrival with 2/4 SIRS criteria (PI=[id number], WBC=23.73), (qSOFA=0) source UTI and bacteremia. Found with obstructing left nephrolithiasis with hydronephrosis, UA suggestive of infection with bacteria present. Patient taken urgently to the OR for cystoscopy, stent placement. With fevers on 10/11, but this is expected with E. coli bacteremia and UTI with treatment Ur cx with E. coli pansensitive BCxs here growing GNRs-await ID and sensitivities Feeling well, no pain or hematuria BPs elevated mildly IVFs since discontinued -continue ceftriaxone -repeat BCxs given ongoing fevers but not completely unexpected -Flomax 0.4mg daily -Ditropan 5mg po BID PRN discomfort -Appreciate Urology assistance -follow all cultures, will need 10-14 days abx but can be po in GN bacteremia once he is defervesced -follow CBC, BMP in AM (2) Nephrolithiasis: Plan: As above, patient with 7mm obstructing stone with hydronephrosis s/p removal with stent placement -Ceftriaxone 2gm IV daily -Flomax and Ditropan as needed -Bloom catheter now removed and voiding -will need stone management as outpt (3) LEE (acute kidney injury): Plan: Elevation of BUN and Cr to 35 and 1.64, respectively. In setting of acute illness, nephrolithiasis now improved after stent placement and IVFs, down to 1.2 -Avoid nephrotoxic agents -follow BMP (4) Elevated lactic acid level: Plan: Lactate elevated on arrival at 3 - improved to 2.5. Patient hemodynamically stable, BP acceptable (5) Elevated troponin: Plan: Patient with troponin of 0.1/0.1/0.06. Denies chest pain. No acute ischemic changes on EKG. Suspect Type II in setting of sepsis, renal compromise -Continue ASA (6) Diabetes mellitus: Plan: He is on metformin and glipizide. Last HbjR0A=2.6 on 07/11/21 -continues to have hyperglycemia here from sepsis, stress -Hold oral agents -increase Lantus to 10u BID and gave an extra 5 units mid day -ISS- tighten down CF and CR again -Goal blood sugar 100 - 140 (7) GERD (gastroesophageal reflux disease): Plan: Chronic. Stable -Continue Protonix 40mg po daily (8) Polymyalgia rheumatica: Plan: Noted. No medications currently -Monitor (9) Hypothyroidism (acquired): Plan: Chronic. Stable on medication. TSH within normal rante at 1.66 on 07/11/21 -Continue Synthroid 112mcg po daily (10) Hyperlipidemia: Plan: Chronic. On statin -Continue Simvastatin 20mg po qPM (11) HTN (hypertension), benign: Plan: Blood pressure stable to mildly elevated -continue Amlodipine 5mg po daily -holding HCTZ and Losartan for LEE (12) Hypokalemia: Plan: mild replace with po KCl follow BMP in AM Plan: Ppx - SCDs to bilateral LE Code - Full per discussion with patient Dispo - continued stay med/surg, dc to home in 1-2 days once fevers gone, convert to po abx Admission and Anticipated Discharge Date Admission Date: October 09, 2021 Subjective Pt had fevers today but feels fairly well. Is stronger and is ambulating the halls.No CP or OSB, no nausea. No abd pain o rback pain, is moving bowels and making urine, no hematuria Review of Systems Review of Systems: All systems reviewed & are unremarkable except as noted in HPI & below Physical Exam Constitutional: WD/WN, vitals as above Eyes: + anicteric sclerae Neck: trachea midline, no thyromegaly Respiratory: normal respiratory effort, lungs clear to auscultation Cardiovascular: RRR, no murmur, no edema Chest (Breasts): Chest: normal inspection of chest Gastrointestinal (Abdomen): normal bowel sounds, soft, nontender, no hepatosplenomegaly Musculoskeletal: Extremities: extremities normal to inspection; no cyanosis and no clubbing Skin: no rashes, warm and dry Neurologic: moves all extremities and awake; no focal motor deficits Psychiatric: A+Ox3, euthymic affect Lymphatic: no lymphedema Results & Data Results & Data ([facility]) Vital Signs (Past 12 Hours) Vital Signs Temp Pulse Resp BP BP Pulse Ox 10/11/21 15:52 38.5 C H 91 H 16 165/83 H 95 10/11/21 15:25 37.6 C H 92 H 16 151/72 H 94 10/11/21 07:52 38 C H 89 16 146/82 H 92 Laboratory Results 10/11/21 10/11/21 10/11/21 Range/Units 11:53 11:52 08:19 WBC (4.8-10.8) K/uL RBC (4.7-6.1) M/uL Hgb (14.0-18.0) g/dL Hct (42-52) % MCV (80-100) fL MCH (25-34) pg MCHC (32-36) g/dL RDW Std Deviation (36.4-46.3) fL RDW Coeff of Orly (11.5-14.5) % Plt Count (130-400) K/uL MPV (7.4-10.4) fL Immature Gran % (Auto) % Neut % (Auto) % Lymph % (Auto) % Ramsey % (Auto) % Eos % (Auto) % Baso % (Auto) % Neut # (Auto) (1.4-6.5) K/uL Lymph # (Auto) (1.2-3.4) K/uL Ramsey # (Auto) (0.11-0.59) K/uL Eos # (Auto) (0-0.5) K/uL Baso # (Auto) (0-0.2) K/uL Immature Gran # (Auto) (0.00-0.02) K/uL Sodium (136-145) mmol/L Potassium (3.5-5.1) mmol/L Chloride (98-107) mmol/L Carbon Dioxide (21-32) mmol/L Anion Gap (3-11) BUN (6-23) mg/dl Creatinine (0.6-1.4) mg/dl Est Cr Clr Drug Dosing ml/min Est GFR ( Amer) ml/min Est GFR (Non-Af Amer) ml/min BUN/Creatinine Ratio (10-20) Glucose (70-99(Fasting)) mg/dl POC Glucose 296 H 329 H* 254 H (70-99) mg/dl Calcium (8.5-10.1) mg/dl Total Bilirubin (0.2-1.0) mg/dl AST (13-39) U/L ALT (7-52) U/L Alkaline Phosphatase (34-104) U/L Total Protein (6.0-8.3) gm/dl Albumin (3.4-5.0) gm/dl Globulin (2.5-4.0) gm/dl Albumin/Globulin Ratio (0.9-2) 10/11/21 10/11/21 10/10/21 Range/Units 07:37 07:37 20:45 WBC 9.75 (4.8-10.8) K/uL RBC 3.94 L (4.7-6.1) M/uL Hgb 12.5 L (14.0-18.0) g/dL Hct 36.6 L (42-52) % MCV 92.9 (80-100) fL MCH 31.7 (25-34) pg MCHC 34.2 (32-36) g/dL RDW Std Deviation 45.1 (36.4-46.3) fL RDW Coeff of Orly 13.2 (11.5-14.5) % Plt Count 179 (130-400) K/uL MPV 9.7 (7.4-10.4) fL Immature Gran % (Auto) 0.1 % Neut % (Auto) 83.2 % Lymph % (Auto) 8.6 % Ramsey % (Auto) 6.7 % Eos % (Auto) 1.2 % Baso % (Auto) 0.2 % Neut # (Auto) 8.11 H (1.4-6.5) K/uL Lymph # (Auto) 0.84 L (1.2-3.4) K/uL Ramsey # (Auto) 0.65 H (0.11-0.59) K/uL Eos # (Auto) 0.12 (0-0.5) K/uL Baso # (Auto) 0.02 (0-0.2) K/uL Immature Gran # (Auto) 0.01 (0.00-0.02) K/uL Sodium 134 L (136-145) mmol/L Potassium 3.4 L D (3.5-5.1) mmol/L Chloride 100 (98-107) mmol/L Carbon Dioxide 26 (21-32) mmol/L Anion Gap 8 (3-11) BUN 35 H (6-23) mg/dl Creatinine 1.24 D (0.6-1.4) mg/dl Est Cr Clr Drug Dosing 51.9 ml/min Est GFR ( Amer) 63.2 ml/min Est GFR (Non-Af Amer) 54.6 ml/min BUN/Creatinine Ratio 28.2 H (10-20) Glucose 258 H (70-99(Fasting)) mg/dl POC Glucose 238 H (70-99) mg/dl Calcium 8.9 (8.5-10.1) mg/dl Total Bilirubin 0.7 (0.2-1.0) mg/dl AST 39 (13-39) U/L ALT 52 (7-52) U/L Alkaline Phosphatase 78 (34-104) U/L Total Protein 6.3 (6.0-8.3) gm/dl Albumin 3.3 L (3.4-5.0) gm/dl Globulin 3.0 (2.5-4.0) gm/dl Albumin/Globulin Ratio 1.1 (0.9-2) PG Care Time/CCT Total # of Minutes Spent Total Time Spent with Patient: Total time spent is greater than 50% in coordination of care (as documented) at patient's floor/unit and/or counseling patient: Coding Level of Care Code 73173 Subseq Hosp Care Lvl 2 Diagnoses Septicemia A41.9 Nephrolithiasis N20.0 LEE (acute kidney injury) N17.9 Elevated lactic acid level R79.89 Elevated troponin R77.8 Diabetes mellitus E11.9 GERD (gastroesophageal reflux disease) K21.9 Polymyalgia rheumatica M35.3 Hypothyroidism (acquired) E03.9 Hyperlipidemia E78.5 HTN (hypertension), benign I10 Hypokalemia E87.6
[2021-10-11] MEDS: cefTRIAXone SODIUM 2,000 MG in DEXTROSE 5% 50 ML IV SCH (17:34)
[2021-10-11] MEDS ORDERED: COUGH DROP (SUGAR FREE) LOZ 24 LOZ/1 BOX BUCCAL PRN (21:20)
[2021-10-11] MEDS: SIMVASTATIN 20 MG TAB PO SCH (21:21)
[2021-10-12] MEDS: LEVOTHYROXINE SODIUM 112 MCG TABLET PO SCH (06:15)
[2021-10-12 06:48] LABS: Basophils # (auto) 0.02 K/uL (0-0.2); Basophils % (auto) 0.4 %; Eosinophils # (auto) 0.05 K/uL (0-0.5); Hematocrit (blood only) 37.8 % (42-52); Hemoglobin 12.7 g/dL (14.0-18.0); Lymphocytes # (auto) 0.84 K/uL (1.2-3.4); Lymphocytes % (auto) 16.9 %; Mean Corpuscular Hemoglobin 31.4 pg (25-34); Mean Corpuscular Hgb Conc 33.6 g/dL (32-36); Mean Corpuscular Volume 93.3 fL (80-100); Mean Platelet Volume 9.9 fL (7.4-10.4); Monocytes # (auto) 0.58 K/uL (0.11-0.59); Monocytes % (auto) 11.7 %; Neutrophils # (auto) 3.47 K/uL (1.4-6.5); Platelet Count 182 K/uL (130-400); RDW Standard Deviation 44.7 fL (36.4-46.3); Red Blood Count 4.05 M/uL (4.7-6.1); White Blood Count 4.96 K/uL (4.8-10.8)
[2021-10-12 07:11] LABS: BUN Creatinine Ratio 19.7 (10-20); Calcium 9.2 mg/dl (8.5-10.1); Creatinine Clr Calc Pharmacy 50.7 ml/min; Est GFR (African American) 61.4 ml/min; Potassium 3.5 mmol/L (3.5-5.1)
[2021-10-12] MEDS: MAGNESIUM OXIDE 400 MG TAB PO SCH ×2 (08:27→20:02)
[2021-10-12] MEDS: FOLIC ACID 400 MCG TAB PO SCH (08:27)
[2021-10-12] MEDS: ASPIRIN 81 MG ECTAB PO SCH (08:28)
[2021-10-12] MEDS: TAMSULOSIN HCL 0.4 MG CAP PO SCH (08:28)
[2021-10-12] MEDS: ASCORBIC ACID 500 MG TAB PO SCH (08:28)
[2021-10-12] MEDS: amLODIPine BESYLATE 5 MG TAB PO SCH (08:29)
[2021-10-12] MEDS: PANTOprazole 40 MG TAB PO SCH (08:29)
[2021-10-12] MEDS: INSULIN ASPART PER UNIT SC SCH ×4 (09:35→20:59)
[2021-10-12] MEDS: INSULIN GLARGINE SOLOSTAR 100 UNITS/ML 3 ML PEN SC SCH ×2 (09:36→21:00)
--- NOTE | 2021-10-12 14:31 | Hospitalist Progress Note ---
Date of Service October 12, 2021 Assessment & Plan (1) Septicemia: Plan: Patient meets sepsis criteria on arrival with 2/4 SIRS criteria (FA=319, WBC=23.73), (qSOFA=0) source UTI and bacteremia. Found with obstructing left nephrolithiasis with hydronephrosis, UA suggestive of infection with bacteria present. Patient taken urgently to the OR for cystoscopy, stent placement. With fevers on 10/11, but this is expected with E. coli bacteremia and UTI with treatment Fevers only low grade on AM of 10/12 Ur cx with E. coli pansensitive BCxs now also with pansens E. coli Repeat BCxs NGTD Feeling well, no pain or hematuria BPs elevated mildly -continue ceftriaxone but plan to switch to po Cipro on discharge to complete 10-14 day course to cover through time the ureteral stent is removed -follow repeat BCx -continue Flomax 0.4mg daily -Ditropan 5mg po BID PRN discomfort -Appreciate Urology assistance-f/u for stone management and stent removal within 1-2 weeks after discharge -follow CBC, BMP in AM (2) Nephrolithiasis: Plan: As above, patient with 7mm obstructing stone with hydronephrosis s/p removal with stent placement as above (3) LEE (acute kidney injury): Plan: Elevation of BUN and Cr to 35 and 1.64, respectively. In setting of acute illness, nephrolithiasis now improved after stent placement and IVFs, down to 1.2 -Avoid nephrotoxic agents -follow BMP (4) Elevated lactic acid level: Plan: Lactate elevated on arrival at 3 - improved to 2.5. Patient hemodynamically stable, BP acceptable (5) Elevated troponin: Plan: Patient with troponin of 0.1/0.1/0.06. Denies chest pain. No acute ischemic changes on EKG. Suspect Type II in setting of sepsis, renal compromise -Continue ASA (6) Diabetes mellitus: Plan: He is on metformin and glipizide. Last SniY8F=3.6 on 07/11/21 -continues to have severe hyperglycemia here from sepsis, stress -Hold oral agents -increase Lantus again to 15u BID -increase Novolog CF and CR again -Goal blood sugar 100 - 140 -check A1C in AM-he reports at home he has been in the 200s for the last few months-suspect he may need insulin upon discharge but maybe not if he can change diet (7) GERD (gastroesophageal reflux disease): Plan: Chronic. Stable -Continue Protonix 40mg po daily (8) Polymyalgia rheumatica: Plan: Noted. No medications currently -Monitor (9) Hypothyroidism (acquired): Plan: Chronic. Stable on medication. TSH within normal range at 1.66 on 07/11/21 -Continue Synthroid 112mcg po daily (10) Hyperlipidemia: Plan: Chronic. 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 He is eating and drinking but barely moving his bowels. Review of Systems Review of Systems: All systems reviewed & are unremarkable except as noted in HPI & below Physical Exam Constitutional: WD/WN, vitals as above Eyes: + anicteric sclerae Neck: trachea midline, no thyromegaly Respiratory: normal respiratory effort, lungs clear to auscultation Cardiovascular: RRR, no murmur, no edema Chest (Breasts): Chest: normal inspection of chest Gastrointestinal (Abdomen): normal bowel sounds, soft, nontender, no hepatosplenomegaly Musculoskeletal: Extremities: extremities normal to inspection; no cyanosis and no clubbing Skin: no rashes, warm and dry Neurologic: moves all extremities and awake; no focal motor deficits Psychiatric: A+Ox3, euthymic affect Lymphatic: no lymphedema Results & Data Results & Data ([facility]) Vital Signs (Past 12 Hours) Vital Signs Temp Pulse Resp BP BP Pulse Ox 10/12/21 08:25 80 165/79 H 10/12/21 08:01 37.6 C H 84 16 153/85 H 92 Laboratory Results 10/12/21 10/12/21 10/12/21 Range/Units 12:05 08:10 05:58 WBC (4.8-10.8) K/uL RBC (4.7-6.1) M/uL Hgb (14.0-18.0) g/dL Hct (42-52) % MCV (80-100) fL MCH (25-34) pg MCHC (32-36) g/dL RDW Std Deviation (36.4-46.3) fL RDW Coeff of Orly (11.5-14.5) % Plt Count (130-400) K/uL MPV (7.4-10.4) fL Immature Gran % (Auto) % Neut % (Auto) % Lymph % (Auto) % [place]ata[place] % (Auto) % Eos % (Auto) % Baso % (Auto) % Neut # (Auto) (1.4-6.5) K/uL Lymph # (Auto) (1.2-3.4) K/uL [place] # (Auto) (0.11-0.59) K/uL Eos # (Auto) (0-0.5) K/uL Baso # (Auto) (0-0.2) K/uL Immature Gran # (Auto) (0.00-0.02) K/uL Sodium 136 (136-145) mmol/L Potassium 3.5 (3.5-5.1) mmol/L Chloride 100 (98-107) mmol/L Carbon Dioxide 30 (21-32) mmol/L Anion Gap 6 (3-11) BUN 25 H (6-23) mg/dl Creatinine 1.27 (0.6-1.4) mg/dl Est Cr Clr Drug Dosing 50.7 ml/min Est GFR ( Amer) 61.4 ml/min Est GFR (Non-Af Amer) 53.0 ml/min BUN/Creatinine Ratio 19.7 (10-20) Glucose 224 H (70-99(Fasting)) mg/dl POC Glucose 295 H 240 H (70-99) mg/dl Calcium 9.2 (8.5-10.1) mg/dl 10/12/21 10/11/21 10/11/21 Range/Units 05:58 20:50 16:54 WBC 4.96 (4.8-10.8) K/uL RBC 4.05 L (4.7-6.1) M/uL Hgb 12.7 L (14.0-18.0) g/dL Hct 37.8 L (42-52) % MCV 93.3 (80-100) fL MCH 31.4 (25-34) pg MCHC 33.6 (32-36) g/dL RDW Std Deviation 44.7 (36.4-46.3) fL RDW Coeff of Orly 13.0 (11.5-14.5) % Plt Count 182 (130-400) K/uL MPV 9.9 (7.4-10.4) fL Immature Gran % (Auto) 0.0 % Neut % (Auto) 70.0 % Lymph % (Auto) 16.9 % Cata[place] % (Auto) 11.7 % Eos % (Auto) 1.0 % Baso % (Auto) 0.4 % Neut # (Auto) 3.47 (1.4-6.5) K/uL Lymph # (Auto) 0.84 L (1.2-3.4) K/uL [place] # (Auto) 0.58 (0.11-0.59) K/uL Eos # (Auto) 0.05 (0-0.5) K/uL Baso # (Auto) 0.02 (0-0.2) K/uL Immature Gran # (Auto) 0.00 (0.00-0.02) K/uL Sodium (136-145) mmol/L Potassium (3.5-5.1) mmol/L Chloride (98-107) mmol/L Carbon Dioxide (21-32) mmol/L Anion Gap (3-11) BUN (6-23) mg/dl Creatinine (0.6-1.4) mg/dl Est Cr Clr Drug Dosing ml/min Est GFR ( Amer) ml/min Est GFR (Non-Af Amer) ml/min BUN/Creatinine Ratio (10-20) Glucose (70-99(Fasting)) mg/dl POC Glucose 207 H 323 H* (70-99) mg/dl Calcium (8.5-10.1) mg/dl 10/11/21 10/11/21 Range/Units 16:53 07:37 WBC (4.8-10.8) K/uL RBC (4.7-6.1) M/uL Hgb (14.0-18.0) g/dL Hct (42-52) % MCV (80-100) fL MCH (25-34) pg MCHC (32-36) g/dL RDW Std Deviation (36.4-46.3) fL RDW Coeff of Orly (11.5-14.5) % Plt Count (130-400) K/uL MPV (7.4-10.4) fL Immature Gran % (Auto) % Neut % (Auto) % Lymph % (Auto) % [place] % (Auto) % Eos % (Auto) % Baso % (Auto) % Neut # (Auto) (1.4-6.5) K/uL Lymph # (Auto) (1.2-3.4) K/uL [place] # (Auto) (0.11-0.59) K/uL Eos # (Auto) (0-0.5) K/uL Baso # (Auto) (0-0.2) K/uL Immature Gran # (Auto) (0.00-0.02) K/uL Sodium (136-145) mmol/L Potassium 3.4 L D (3.5-5.1) mmol/L Chloride (98-107) mmol/L Carbon Dioxide (21-32) mmol/L Anion Gap (3-11) BUN (6-23) mg/dl Creatinine (0.6-1.4) mg/dl Est Cr Clr Drug Dosing ml/min Est GFR ( Amer) ml/min Est GFR (Non-Af Amer) ml/min BUN/Creatinine Ratio (10-20) Glucose (70-99(Fasting)) mg/dl POC Glucose 320 H* (70-99) mg/dl Calcium (8.5-10.1) mg/dl PG Care Time/CCT Total # of Minutes Spent Total Time Spent with Patient: Total time spent is greater than 50% in coordination of care (as documented) at patient's floor/unit and/or counseling patient: Coding Level of Care Code 08615 Subseq Hosp Care Lvl 2 Diagnoses Septicemia A41.9 Nephrolithiasis N20.0 LEE (acute kidney injury) N17.9 Elevated lactic acid level R79.89 Elevated troponin R77.8 Diabetes mellitus E11.9 GERD (gastroesophageal reflux disease) K21.9 Polymyalgia rheumatica M35.3 Hypothyroidism (acquired) E03.9 Hyperlipidemia E78.5 HTN (hypertension), benign I10 Hypokalemia E87.6
[2021-10-12] MEDS: POLYETHYLENE (MIRALAX) 17 GM PACK PO SCH (15:23)
[2021-10-12] MEDS: ACETAMINOPHEN 325 MG TAB PO PRN (16:05)
[2021-10-12] MEDS: cefTRIAXone SODIUM 2,000 MG in DEXTROSE 5% 50 ML IV SCH (17:36)
[2021-10-12] MEDS: SIMVASTATIN 20 MG TAB PO SCH (20:02)
[2021-10-13] MEDS: LEVOTHYROXINE SODIUM 112 MCG TABLET PO SCH (05:46)
[2021-10-13] MEDS: POLYETHYLENE (MIRALAX) 17 GM PACK PO SCH (07:58)
[2021-10-13] MEDS: MAGNESIUM OXIDE 400 MG TAB PO SCH (07:59)
[2021-10-13] MEDS: PANTOprazole 40 MG TAB PO SCH (07:59)
[2021-10-13] MEDS: ASCORBIC ACID 500 MG TAB PO SCH (07:59)
[2021-10-13] MEDS: FOLIC ACID 400 MCG TAB PO SCH (07:59)
[2021-10-13] MEDS: amLODIPine BESYLATE 5 MG TAB PO SCH (07:59)
[2021-10-13] MEDS: ASPIRIN 81 MG ECTAB PO SCH (07:59)
[2021-10-13] MEDS: TAMSULOSIN HCL 0.4 MG CAP PO SCH (07:59)
--- NOTE | 2021-10-13 08:16 | Hospitalist Progress Note ---
Date of Service October 13, 2021 Assessment & Plan (1) Septicemia: Plan: Patient meets sepsis criteria on arrival with 2/4 SIRS criteria (WW=551, WBC=23.73), (qSOFA=0) source UTI and bacteremia. Found with obstructing left nephrolithiasis with hydronephrosis, UA suggestive of infection with bacteria present. Patient taken urgently to the OR for cystoscopy, stent placement. With fevers on 10/11, but this is expected with E. coli bacteremia and UTI with treatment Fevers only low grade on AM of 10/12 Ur cx with E. coli pansensitive BCxs now also with pansens E. coli Repeat BCxs NGTD Feeling well, no pain or hematuria BPs elevated mildly -continue ceftriaxone but plan to switch to po Cipro on discharge to complete 10-14 day course to cover through time the ureteral stent is removed -follow repeat BCx -continue Flomax 0.4mg daily -Ditropan 5mg po BID PRN discomfort -Appreciate Urology assistance-f/u for stone management and stent removal within 1-2 weeks after discharge -follow CBC, BMP in AM (2) Nephrolithiasis: Plan: As above, patient with 7mm obstructing stone with hydronephrosis s/p removal with stent placement as above (3) LEE (acute kidney injury): Plan: Elevation of BUN and Cr to 35 and 1.64, respectively. In setting of acute illness, nephrolithiasis now improved after stent placement and IVFs, down to 1.2 -Avoid nephrotoxic agents -follow BMP (4) Elevated lactic acid level: Plan: Lactate elevated on arrival at 3 - improved to 2.5. Patient hemodynamically stable, BP acceptable (5) Elevated troponin: Plan: Patient with troponin of 0.1/0.1/0.06. Denies chest pain. No acute ischemic changes on EKG. Suspect Type II in setting of sepsis, renal compromise -Continue ASA (6) Diabetes mellitus: Plan: He is on metformin and glipizide. Last IghH1M=8.6 on 07/11/21 -continues to have severe hyperglycemia here from sepsis, stress -Hold oral agents -increase Lantus again to 15u BID -increase Novolog CF and CR again -Goal blood sugar 100 - 140 -check A1C in AM-he reports at home he has been in the 200s for the last few months-suspect he may need insulin upon discharge but maybe not if he can change diet (7) GERD (gastroesophageal reflux disease): Plan: Chronic. Stable -Continue Protonix 40mg po daily (8) Polymyalgia rheumatica: Plan: Noted. No medications currently -Monitor (9) Hypothyroidism (acquired): Plan: Chronic. Stable on medication. TSH within normal range at 1.66 on 07/11/21 -Continue Synthroid 112mcg po daily (10) Hyperlipidemia: Plan: Chronic. On statin -Continue Simvastatin 20mg po qPM (11) HTN (hypertension), benign: Plan: Blood pressure stable to mildly elevated -continue Amlodipine 5mg po daily -holding HCTZ and Losartan for LEE, but hopefully can restart on discharge if kitchen stewardess stay stable (12) Hypokalemia: Plan: resolved with replacement Plan: Ppx - SCDs to bilateral LE Code - Full per discussion with patient Dispo - continued stay med/surg, dc to home hopefully Friday once fevers gone, repeat blood cultures no growth at 48 hours, and can convert to po abx He is ambulating independently Admission and Anticipated Discharge Date Admission Date: October 09, 2021 Results & Data Results & Data ([facility]) Vital Signs (Past 12 Hours) Vital Signs Temp Pulse Resp BP Pulse Ox 10/13/21 06:21 98.8 F 79 16 145/81 H 94 10/12/21 21:48 99.1 F 73 16 145/78 H 96 PG Care Time/CCT Total # of Minutes Spent Total Time Spent with Patient: Total time spent is greater than 50% in coordination of care (as documented) at patient's floor/unit and/or counseling patient: Coding Diagnoses Septicemia A41.9 Nephrolithiasis N20.0 LEE (acute kidney injury) N17.9 Elevated lactic acid level R79.89 Elevated troponin R77.8 Diabetes mellitus E11.9 GERD (gastroesophageal reflux disease) K21.9 Polymyalgia rheumatica M35.3 Hypothyroidism (acquired) E03.9 Hyperlipidemia E78.5 HTN (hypertension), benign I10 Hypokalemia E87.6
[2021-10-13] MEDS: INSULIN GLARGINE SOLOSTAR 100 UNITS/ML 3 ML PEN SC SCH (09:04)
[2021-10-13] MEDS: INSULIN ASPART PER UNIT SC SCH ×2 (09:06→13:20)
[2021-10-13 11:17] LABS: Basophils # (auto) 0.03 K/uL (0-0.2); Basophils % (auto) 0.7 %; Eosinophils % (auto) 2.2 %; Hematocrit (blood only) 40.9 % (42-52); Hemoglobin 13.6 g/dL (14.0-18.0); Lymphocytes # (auto) 1.06 K/uL (1.2-3.4); Lymphocytes % (auto) 23.1 %; Mean Corpuscular Hgb Conc 33.3 g/dL (32-36); Mean Corpuscular Volume 93.2 fL (80-100); Mean Platelet Volume 9.8 fL (7.4-10.4); Monocytes # (auto) 0.88 K/uL (0.11-0.59); Monocytes % (auto) 19.2 %; Neutrophils # (auto) 2.52 K/uL (1.4-6.5); Neutrophils % (auto) 54.8 %; Platelet Count 196 K/uL (130-400); RDW Coefficient of Variation 12.9 % (11.5-14.5); RDW Standard Deviation 43.8 fL (36.4-46.3); Red Blood Count 4.39 M/uL (4.7-6.1); White Blood Count 4.59 K/uL (4.8-10.8)
[2021-10-13 11:48] LABS: BUN Creatinine Ratio 15.7 (10-20); Calcium 9.5 mg/dl (8.5-10.1); Creatinine Clr Calc Pharmacy 50.7 ml/min; Est GFR (African American) 61.4 ml/min; Potassium 3.4 mmol/L (3.5-5.1)
[2021-10-13] MEDS ORDERED: INSULIN GLARGINE SOLOSTAR 100 UNITS/ML 3 ML PEN SC ONE (12:21)
[2021-10-13 12:27] LABS: Estimated Average Glucose 189 mg/dl; Hemoglobin A1C 8.2 % (4.5-5.6)
--- NOTE | 2021-10-13 16:07 | Discharge Summary ---
Date of Service October 13, 2021 Admission HPI Per Admitting Provider Reyes Sanchez is a pleasant 80yo male with history of HTN, HLP, DM, GERD, prostate CA s/p prostatectomy, nephrolithiasis with prior lithotripsy presenting with left lower back pain. Pain has been occurring intermittently for the last month. Was worse today. Also with chills and rigors. No reported fever. Patient states he is able to urinate without difficulty but does have some increased urgency as well as hematuria. Patient has fallen x 2 over the last day. He fell out of bed this AM around 02:30 and again later in the afternoon. He denies loss of consciousness or head trauma. Thinks he may have just become weak and dizzy prior to falling. No focal neurological deficits, incontinence, seizure activity. No chest pain or palpitations preceding or following these falls. In the ER patient afebrile, tachycardic upon arrival with HR of 112, otherwise HD stable, NAD. No respiratory distress, saturating well on room air. Workup revealed marked leukocytosis with WBC=23.73 with neutrophil predominance and bands. Mild elevation of BUN to 35 and Cr to 1.64 (from 27 and 1, respectively on 07/11/21). UA suggestive of infection with bacteria present. CT of the abdomen with obstructive stone in the left ureter measuring 7mm in diameter with resulting hydronephrosis. Patient was evaluated by Urology in the ER and was taken to the OR for cystoscopy, left retrograde pyelogram and left ureteral stent placement. Found with purulent urine from the left as well as mild left hydronephrosis. Stent placed without difficulty. Procedure well tolerated with no immediate complications identified. Patient to be admitted for ongoing antibiotics and symptom management. ER Course: Ceftriaxone, Tylenol Principal Diagnosis sepsis from E coli uti poa Discharge Exam The patient appeared well Vital signs as documented. Psychologically is without concerns for anxiety or depression. Discharge Data Allergies Allergy/AdvReac Type Severity Reaction Status Date / Time lisinopril Allergy Severe swollen Verified 10/09/21 20:14 tongue adhesive Allergy Intermediate SORE RASH Verified 10/09/21 20:14 WITH TAPE Consultations 10/09/21 20:12 Consult Urology Stat ED Decision to Admit Stat Procedures Performed Operation Date: 10/09/21 20:45 Actual Procedures p Cystoscopy, Left Retrograde Pyelogram, Left Stent Insertion, Urinary Catheter Placement(Left) - Efraín Grayson MD Ordered Studies 10/09/21 [place] retrograde includes kub Routine 10/09/21 17:09 CT abd pelvis IV con only Stat 10/09/21 19:03 CT cervical spine wo con Stat CT head/brain wo con Stat Hospital Course (1) Septicemia: Patient meets sepsis criteria on arrival with 2/4 SIRS criteria (KE=748, WBC=23.73), (qSOFA=0) source UTI and bacteremia. Found with obstructing left nephrolithiasis with hydronephrosis, UA suggestive of infection with bacteria present. Patient taken urgently to the OR for cystoscopy, stent placement. With fevers on 10/11, but this is expected with E. coli bacteremia and UTI with treatment Fevers only low grade on AM of 10/12 Ur cx with E. coli pansensitive BCxs now also with pansens E. coli Repeat BCxs NGTD Feeling well, no pain or hematuria BPs elevated mildly -continue ceftriaxone but plan to switch to po Cipro on discharge to complete 10-14 day course to cover through time the ureteral stent is removed -repeat BCx negative at time of discharge -continue Flomax 0.4mg daily -Ditropan 5mg po BID PRN discomfort -Appreciate Urology assistance-f/u for stone management and stent removal within 1-2 weeks after discharge (2) Nephrolithiasis: As above, patient with 7mm obstructing stone with hydronephrosis s/p removal with stent placement as above (3) LEE (acute kidney injury): resolved (4) Elevated lactic acid level: Lactate elevated on arrival at 3 - improved to 2.5. Patient hemodynamically stable, BP acceptable (5) Elevated troponin: Patient with troponin of 0.1/0.1/0.06. Denies chest pain. No acute ischemic changes on EKG. Suspect Type II VT in setting of sepsis, renal compromise -Continue ASA (6) Diabetes mellitus: He is on metformin and glipizide. Due to some elevation of his blood sugar the day prior to discharge will have him call me adhere to his diet resume his oral medications and follow-up with primary care provider to marketing graphics specialist whether his regimen is appropriate for him NC is 8.2 suggesting perhaps not the most tightest control at home (7) GERD (gastroesophageal reflux disease): Chronic. Stable -Continue Protonix 40mg po daily (8) Polymyalgia rheumatica: Noted. No medications currently -Monitor (9) Hypothyroidism (acquired): Chronic. Stable on medication. TSH within normal range at 1.66 on 07/11/21 -Continue Synthroid 112mcg po daily (10) Hyperlipidemia: Chronic. On statin -Continue Simvastatin 20mg po qPM (11) HTN (hypertension), benign: Blood pressure stable to mildly elevated -continue Amlodipine 5mg po daily -holding HCTZ and Losartan for LEE, but hopefully can restart on discharge if inventory representative stay stable (12) Hypokalemia: resolved with replacement Total Time Total Time Spent Total Time Spent (In Minutes): It required greater than 30 minutes to prepare this patient for discharge Discharge Plan Discharge Items Patient Disposition: Home - Self-Care Reason For Visit: UTI, OBSTRUCTING STONE, SEPSIS Discharge Diagnosis: sepsis from pansensitive E coli kidney injury resolved with procedure and hydration elevated troponin due to level of illness Activity: Resume your previous activity Non-emergency contact: Primary Care Provider Call non-emergency contact if: your symptoms worsen and you have a fever Follow-up/Referrals: Lena Collier DO [Primary Care Provider] - Diet: Carb Consistent or DM2 Addtl Attending Provider Instructions: complete 10 Days of antibiotics Plenty of good nutrition and hydration please return to your home diabetic regiment Be sure to follow up with your primary care in one week Pending Studies at Discharge: No Stand-Alone Forms: My [facility] [employer], Smoking Cessation Medications and DC Order Prescriptions: New tamsulosin 0.4 mg Capsule 0.4 mg PO QAM Qty: 30 RF: 0 ciprofloxacin HCl [Cipro] 500 mg tablet 500 mg PO BID Qty: 20 RF: 0 Continued magnesium oxide 400 mg magnesium tablet 400 mg PO BID Qty: 180 RF: 1 amlodipine 5 mg tablet 5 mg PO QAM Qty: 90 RF: 1 glipizide 5 mg tablet extended release 24hr 5 mg PO QAM Qty: 90 RF: 1 hydrochlorothiazide 12.5 mg capsule 12.5 mg PO QAM Qty: 90 RF: 1 levothyroxine 112 mcg tablet 112 mcg PO DAILY Qty: 90 RF: 1 losartan 25 mg tablet 25 mg PO QAM Qty: 90 RF: 1 metformin 1,000 mg tablet 1,000 mg PO BID Qty: 180 RF: 1 omeprazole 20 mg capsule,delayed release(DR/EC) 20 mg PO DAILY Qty: 90 RF: 1 cholecalciferol (vitamin D3) [Vitamin D3] 25 mcg (1,000 unit) tablet 5,000 unit PO QAM RF: 0 betamethasone dipropionate 0.05 % cream 1 applic topical BID PRN (Reason: rash) Qty: 45 RF: 1 folic acid 800 mcg Tablet 0.8 mg PO QAM RF: 0 aspirin 81 mg Tablet,Delayed Release (Dr/Ec) 81 mg PO DAILY RF: 0 ascorbic acid (vitamin C) [Vitamin C] 500 mg Tablet 500 mg PO DAILY RF: 0 simvastatin 20 mg tablet 20 mg PO QPM RF: 0 ketoconazole 2 % cream 1 applic topical BID PRN (Reason: Skin Irritation) RF: 0 Discharge Orders: Discharge Order (Routine); Ordered 10/13/21 Ordered By: Arnoldo Alejandro/Other Patient Handouts: High Blood Sugar (Hyperglycemia), Hypoglycemia (Low Blood Sugar), Managing Type 2 Diabetes, Having a Ureteral Stent Admission Data Admit Date/Time: 10/09/21 20:56 Attending Provider: Arnoldo Ontiveros Admit Provider: Maribel Yang Primary Care Provider: Lena Collier Other Providers: Efraín Grayson ; Maribel Yang Other Interventions: Discharge Summary Assessment (RN) Last Done: 10/13/21 11:03 Coding Level of Care Code D/C DAY MANAGEMENT >30 MINS Diagnoses Septicemia A41.9 Nephrolithiasis N20.0 LEE (acute kidney injury) N17.9 Elevated lactic acid level R79.89 Elevated troponin R77.8 Diabetes mellitus E11.9 GERD (gastroesophageal reflux disease) K21.9 Polymyalgia rheumatica M35.3 Hypothyroidism (acquired) E03.9 Hyperlipidemia E78.5 HTN (hypertension), benign I10 Hypokalemia E87.6
== END 2021-10-13 14:52 | disposition home or self-care (01) | DRG 854 ==
LOC: ED 15:05 → OR 20:50 → SUATTDRO 20:56 → 2N 20:56 → 3N 10-10 19:46